=== PATIENT | female | born 1955 | race Caucasian/White ===

== ENCOUNTER 2018-07-19 16:44 | Inpatient (IN) ==
[2018-07-20] MEDS ORDERED: POLYETHYLENE (MIRALAX) 17 GM PACK PO PRN (00:03)
[2018-07-20] MEDS ORDERED: ACETAMINOPHEN 325 MG TAB PO PRN (00:03)
[2018-07-20] MEDS ORDERED: PATIENT'S ALLERGY INFO NEEDS ENTERED SCH (00:15)
[2018-07-20 00:36] LABS: Basophils # (auto) 0.03 K/uL (0-0.2); Basophils % (auto) 0.4 %; Eosinophils # (auto) 0.45 K/uL (0-0.5); Eosinophils % (auto) 6.4 %; Hematocrit (blood only) 32.3 % (37-47); Hemoglobin 10.5 g/dL (12.0-16.0); Immature Granulocytes # (auto) 0.06 K/uL (0.00-0.02); Immature Granulocytes % (auto) 0.9 %; Lymphocytes # (auto) 1.87 K/uL (1.2-3.4); Lymphocytes % (auto) 26.8 %; Mean Platelet Volume 9.3 fL (7.4-10.4); Monocytes # (auto) 0.51 K/uL (0.11-0.59); Monocytes % (auto) 7.3 %; Neutrophils # (auto) 4.06 K/uL (1.4-6.5); Neutrophils % (auto) 58.2 %; Platelet Count 190 K/uL (130-400); RDW Coefficient of Variation 13.7 % (11.5-14.5); RDW Standard Deviation 40.8 fL (36.4-46.3); Red Blood Count 3.99 M/uL (4.2-5.4); White Blood Count 6.98 K/uL (4.8-10.8)
[2018-07-20 00:45] LABS: Prothrombin Time 19.2 Seconds (9.0-12.0)
[2018-07-20 00:47] LABS: Mean Corpuscular Hgb Conc 32.5 g/dL (32-36)
[2018-07-20 00:53] LABS: Partial Thromboplastin Ratio 1.2; Partial Thromboplastin Time 31.3 Seconds (21.0-31.0)
[2018-07-20 00:55] LABS: Blood Urea Nitrogen 14 mg/dl (7-18); Calcium 8.3 mg/dl (8.5-10.1); Carbon Dioxide 26 mmol/L (21-32); Chloride 106 mmol/L (98-107); Est GFR (African American) 74.5; Est GFR (Non-African American) 64.3; Glucose 104 mg/dl (70-99); Magnesium 2.2 mg/dl (1.8-2.4); Potassium 3.8 mmol/L (3.5-5.1); Sodium 139 mmol/L (136-145)
[2018-07-20 01:00] LABS: Troponin I < 0.015 ng/ml (0-0.045)
--- NOTE | 2018-07-20 01:26 | History & Physical Report ---
Date of Service July 20, 2018 Assessment & Plan (1) Pseudoaneurysm following procedure: Thought to be a hematoma initially Ultrasound today question pseudoaneurysm Status post PCI with right groin approach on 07/07/[address] Magdi Adames for evaluation Bedrest for now N.p.o. overnight Continue to monitor (2) CAD in [place] artery: [place] x2 in 2009 and 2013 PCI to 2 of the [place] vessels in 2009 performed at [place] PCI at [facility] 07/07/2018 2 single-vessel History of AVR replacement with mechanical valve 2009 in [place] Patient anticoagulated with warfarin (INR 2.0) Patient continues on Brilinta twice daily Continue metoprolol, aspirin, and anti-hyper lipids. No chest pain or tightness at this time EKG with no ST changes Old right bundle branch block (3) Hypothyroidism (acquired): Continue Synthroid 75 mcg daily (4) Restless leg syndrome: Continue ropinirole 3 mg at bedtime (5) Hyperlipidemia: Continue antihyperlipidemia (6) Depression: Stable Continue sertraline (7) Tobacco abuse: Discussed need for complete abstention Patient states that she quit smoking on 07/07/2018 Greater than [id number] history (8) DVT prophylaxis: Patient anticoagulated chronically on warfarin INR 2.0 Continue Brilinta twice daily History of Present Illness Chief Complaint: Question of pseudoaneurysm of right groin Primary Care Provider: NO PCP This is a 62-year-old female with a past medical history that includes CAD, non-STEMI 2009, STEMI 2013, ascending aortic repair in [place] in 2009, aortic valve replacement with mechanical valve 2009 in [place], restless leg syndrome with calf pain, and tobacco abuse. Patient presented to [facility] 2 days ago on 07/18/2018 with chest pain and tightness. She recently had a PCI with single vessel stent 07/07/2018 at [facility] completed by staff from [place]. During the procedure they had complications with bleeding due to elevated INR. Ultrasound examination of the groin today indicated possible pseudoaneurysm and patient was transferred to [facility] for further evaluation and care. Patient states that that area is tender but not painful. She has no fever or chills. She has no chest pain or tightness at this time. She has no shortness of breath or hypoxia. She denies any dizziness, syncope, presyncope, abdominal pain, nausea vomiting or diarrhea. She has no other acute complaints at this time. Allergies Allergy/AdvReac Type Severity Reaction Status Date / Time Latex, Natural Rubber AdvReac Localized Unverified 07/20/18 00:56 skin reaction Sulfa (Sulfonamide AdvReac Nausea and Unverified 07/20/18 00:56 Antibiotics) vomiting Home Medications Home Medications Medication Instructions Recorded Confirmed Type Ambien 5 mg PO HS PRN 07/20/18 07/20/18 History aspirin 81 mg PO DAILY 07/20/18 07/20/18 History ezetimibe 10 mg DAILY 07/20/18 07/20/18 History fenofibrate micronized 67 mg DAILY 07/20/18 History levothyroxine [Synthroid] 75 mcg DAILY 07/20/18 07/20/18 History metoprolol tartrate 25 mg BID 07/20/18 History nitroglycerin See Rx Instructions .ROUTE 07/20/18 07/20/18 History .COMPLEX PRN ropinirole 3 mg HS 07/20/18 07/20/18 History sertraline 100 mg PO DAILY 07/20/18 07/20/18 History simvastatin 40 mg DAILY 07/20/18 07/20/18 History ticagrelor [Brilinta] 90 mg BID 07/20/18 07/20/18 History warfarin 3 mg 2XWK 07/20/18 07/20/18 History warfarin 6 mg 5XWK 07/20/18 07/20/18 History Past Med/Surg History Medical History Ascending aortic aneurysm CAD (coronary artery disease) Chronic anticoagulation Due to AVR Hyperlipemia Hypertension NSTEMI (non-ST elevated myocardial infarction) Restless leg syndrome Surgical History Aortic valve replaced 2009 Cholecystectomy planned History of arthroplasty of right knee History of cardiac catheterization 07/07/18 stent placed History of carpal tunnel repair History of partial hysterectomy History of tonsillectomy and adenoidectomy Hx of colonoscopy S/P excision of Gomes's neuroma Family History Brother CAD (coronary artery disease) Emphysema lung Mother CAD (coronary artery disease) Father CAD (coronary artery disease) Social History Communication Ability: Effective Beliefs That Will Affect Care: None marital status: marital status details: Sara White [phone] Current Living Situation: Spouse current occupational status: other 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 EYES: No icterus, gaze conjugate. PERRL NOSE: No evidence of epistaxis. MOUTH: No lesions or candidiasis. No dentures or bridges. No evidence of dental implants. No gingival bleeding. NECK: Supple. No appreciation of carotid bruits LUNGS: CTA B/L, no wheezes, rales or rhonchi HEART: Regular, rate controlled. Mechanical heart murmur secondary to AVR appreciated ABDOMEN: Soft, NT, ND, BS Present. No rebound tenderness or guarding to deep palpation EXTREMITIES: No LE edema, pedal pulses intact. NEURO: A&OX3. No neurological deficits on exam Results & Data Laboratory Results 07/20/18 07/20/18 07/20/18 00:16 00:16 00:16 WBC 6.98 RBC 3.99 L Hgb 10.5 L Hct 32.3 L MCV 81.0 MCH 26.3 MCHC 32.5 RDW Std Deviation 40.8 RDW Coeff of Pretty 13.7 Plt Count 190 MPV 9.3 Immature Gran % (Auto) 0.9 Neut % (Auto) 58.2 Lymph % (Auto) 26.8 [place] % (Auto) 7.3 Eos % (Auto) 6.4 Baso % (Auto) 0.4 Immature Gran # (Auto) 0.06 H Neut # (Auto) 4.06 Lymph # (Auto) 1.87 [place] # (Auto) 0.51 Eos # (Auto) 0.45 Baso # (Auto) 0.03 PT 19.2 H INR 2.0 H APTT PTT Ratio Sodium 139 Potassium 3.8 Chloride 106 Carbon Dioxide 26 Anion Gap 7.0 BUN 14 Creatinine 0.96 Est Cr Clr Drug Dosing Not Reportable Est GFR ( Amer) 74.5 Est GFR (Non-Af Amer) 64.3 BUN/Creatinine Ratio 15.0 Glucose 104 H Calcium 8.3 L Magnesium 2.2 Troponin I < 0.015 07/20/18 00:16 WBC RBC Hgb Hct MCV MCH MCHC RDW Std Deviation RDW Coeff of Pretty Plt Count MPV Immature Gran % (Auto) Neut % (Auto) Lymph % (Auto) [place] % (Auto) Eos % (Auto) Baso % (Auto) Immature Gran # (Auto) Neut # (Auto) Lymph # (Auto) [place] # (Auto) Eos # (Auto) Baso # (Auto) PT INR APTT 31.3 H PTT Ratio 1.2 Sodium Potassium Chloride Carbon Dioxide Anion Gap BUN Creatinine Est Cr Clr Drug Dosing Est GFR ( Amer) Est GFR (Non-Af Amer) BUN/Creatinine Ratio Glucose Calcium Magnesium Troponin I Diagnostic Findings All images from [facility] loaded into PACS system ECG Additional Comments: EKG 07/20/2018 Ventricular rate 64 bpm [place] interval 194 ms QRS duration 144 ms QT/QTc 490/505 ms PRT axis 48-18 44 Normal sinus rhythm Right bundle branch block appreciated (reported history and paperwork from [facility]) Code Status & VTE Plan Code Status Full resuscitation VTE Prophylaxis Plan VTE Prophylaxis will be ordered: Yes Critical Care Time Critical Care Time: No Supervising Physician Co-Signing Physician Notes Pt was seen/examined following evaluation by PREETI Ann. Orders and plan of admission were reviewed following initial evaluation by the HAND DRAWER IN. 62 y/o F Hx CAD - [place] x 2, PVD, AAA repair 2009, AVR 2009, RLS, HLD, hypothyroid, recent PCI and stent 07/07/18. Amazingly, she continues to smoke cigarettes. Following her PCI she developed pain in her R groin and was diagnosed with a pseudoaneurysm. She was transferred from [facility] to [facility] for vascular surgery eval therefore. OE AAO x 3 S1,2 R CTAB NT, ND No CCE No deficits Strong periph pulses BL P: Intervention/plan of treatment will be to the discretion of vascular surgery. If she does undergo intervention, she should be considered high risk due to CAD and a vascular procedure. She will need INR reversal with bridging due to her mechanical valve. She is will aware of the hazards of continued smoking especially considering her underlying poor vascular health. Cont Metoproolol, synthroid, ropinirole as prescribed
[2018-07-20] MEDS ORDERED: ZOLPIDEM TARTRATE 5 MG TAB PO PRN (01:35)
[2018-07-20] MEDS ORDERED: INFLUENZA VIRUS QUAD VACCINE 0.5 ML SYR IM ONE (06:30)
[2018-07-20] MEDS ORDERED: INFLUENZA ADMINISTRATION CHARGE ONE (06:30)
[2018-07-20] MEDS: LEVOTHYROXINE SODIUM 75 MCG TABLET PO SCH (06:40)
[2018-07-20] MEDS: EZETIMIBE 10 MG TABLET PO SCH (08:17)
[2018-07-20] MEDS: ASPIRIN 81 MG ECTAB PO SCH (08:17)
[2018-07-20] MEDS: SIMVASTATIN 40 MG TAB PO SCH (08:17)
[2018-07-20] MEDS: SERTRALINE HCL 100 MG TABLET PO SCH (08:17)
[2018-07-20] MEDS: TICAGRELOR 90 MG TAB PO SCH ×2 (08:17→19:51)
[2018-07-20] MEDS ORDERED: TRIAMCINOLONE ACET NASAL SPRAY 10.8ML BTL NAE SCH (10:15)
[2018-07-20] MEDS ORDERED: SODIUM CHLORIDE 0.65% NA SOLN 45 ML (OCEAN) ONE (11:14)
[2018-07-20] MEDS ORDERED: SODIUM CHLORIDE 0.65% NA SOLN 45 ML (OCEAN) PRN (12:00)
[2018-07-20] MEDS: OXYMETAZOLINE 0.05% 30 ML BTL PRN (12:22)
--- NOTE | 2018-07-20 14:40 | Hospitalist Progress Note ---
Date of Service July 20, 2018 Assessment & Plan (1) Pseudoaneurysm following procedure: This pt is a 62 yo female with a h/o CAD w/ recent PCI to the LAD at [facility], AVR with mechanical valve on coumadin with INR goal 2.0-3.0, h/o TAA repair, RLS, HL, HTN, hypothyroidism, and depression w/ anxiety, who presents from [facility] after being readmitted with chest pain and found to have a pseudoaneurysm at cath site in rt groin. Arterial US here confirms pseudoaneurysm. Has overlying hematoma as well. Is on ASA, Brilinta, and coumadin due to recent SP to LAD and mechanical AVR Status post PCI with right groin approach on 07/07/2018 D/w Cardiology-very hesitant to hold Brilinta for Vascular procedure-will continue ASA/Brilinta for now -Hold coumadin, follow INR -plan for Vascular procedure tomorrow to correct -can remain off coumadin for up to 1 week with mechanical AV -pain control as needed -continue bedrest with BRB -Appreciate Vascular Surgery management (2) CAD in [place] artery: [place] x2 in 2009 and 2013 PCI to 2 of the [place] vessels in 2009 performed at [place] PCI at [facility] 07/07/2018 to LAD all as per patient report Presented with several hours of chest pain at [facility] on 07/18 and had negative troponin, RBBB and no ischemia on ECG, negative CTA Chest.Likely noncardiac Trop here neg -continue ASA, Brilinta-too high risk to stop for procedure at this time given recent PCI -Continue metoprolol, aspirin, and statin, Zetia -follow closely for evidence of ischemia -Appreciate Cardiology recommendations (3) Depression: Stable Continue sertraline (4) Hyperlipidemia: -continue statin, Zetia (5) Restless leg syndrome: Continue ropinirole at bedtime (6) Hypothyroidism (acquired): Continue Synthroid 75 mcg daily -check TSH (7) History of aortic valve replacement: History of AVR replacement with mechanical valve and TAA repair in 2009 w/ Dr. Bedolla at [place] On Coumadin with goal 2.0-3.0--> INR has been labile lately since recent PCI and being off coumadin, restarting. INR was 4.2 on 07/18 when first presented to [facility]. INR now down to 1.6 -Will hold off on bridgin with heparin for now given upcoming surgery tomorrow and with hematoma in groin and pseudoaneurysm -would start bridging with heparin and restart coumadin when ok with Vascular Surgery after procedure -follow INR (8) longterm current use of anticoagulants with INR goal of 2.0-3.0: as above (9) Epistaxis: secondary to being on ASA/Brilinta, Coumadin -resolved with Afrin nasal spray (10) Tobacco abuse: Patient states that she quit smoking on 07/07/2018 Greater than [id number] history -encouraged continued cessation (11) DVT prophylaxis: Coumadin-but on hold Dispo-remain on tele Subjective Pt having pain in her right groin. Denies chest pain but did have CP on Wednesday which is what prompted her ER visit to [facility]. No lightheadedness, no SOB. Tele with NSR. Discussed case with Vascular SUrgery and Cardiology. She had epistaxis earlier which is now resolved with Afrin nasal spray. Review of Systems All systems reviewed & are unremarkable except as noted in HPI & below Physical Exam Vital Signs (Past 24 Hours): Last Vital Signs Temp 36.8 C 07/20/18 12:00 Pulse 64 07/20/18 12:00 Resp 15 07/20/18 12:00 BP 135/79 07/20/18 12:00 Pulse Ox 95 07/20/18 12:00 Constitutional: WD/WN, vitals as above Eyes: PERRL, conjunctivae normal, anicteric sclerae ENMT: external ear and nose normal, oropharynx normal Neck: trachea midline, no thyromegaly Respiratory: normal respiratory effort, lungs clear to auscultation Cardiovascular: RRR, no murmur, no edema Vessels: femoral pulses present (with right groin with approx 8 x 3 cm palpable firm mass) Gastrointestinal (Abdomen): normal bowel sounds, soft, nontender, no hepatosplenomegaly Musculoskeletal: Extremities: extremities normal to inspection; no cyanosis and no clubbing Skin: + ecchymosis (in right groin and thigh, left flank) Neurologic: moves all extremities and awake; no focal motor deficits Psychiatric: A+Ox3, euthymic affect Results & Data Laboratory Results 07/20/18 07/20/18 Range/Units 14:51 00:20 PT 16.0 H (9.0-12.0) Seconds INR 1.6 H (0.9-1.1) Blood Type AB Positive Antibody Screen NEGATIVE Crossmatch See Detail Na+ 139 K+ 3.8 HCO3 26 Blood Tester Fowl 0.96 INR 2.0--> 1.6 Troponin <0.015 WBC 6.9 Hgb 10.5 Plts 190 Diagnostic Findings US arterial duplex LE RT CLINICAL HISTORY: right femoral aneurysm COMPARISON STUDY: Outside study dated July 19, 2018 FINDINGS: There is triphasic flow within the right common femoral, superficial femoral, popliteal, posterior tibial, anterior tibial, and peroneal vessels. No high velocity jets are visualized. There is a 31 x 10 x 21 mm hypoechoic lesion which appears to communicate with the right common femoral artery. This is viewed as suspicious for a pseudoaneurysm. There is a mildly prominent 31 x 42 x 11 mm right groin node, likely reactive. IMPRESSION: 1. 31 x 21 x 10 mm pseudoaneurysm, arising from the right common femoral artery 2. No evidence of right lower extremity arterial stenosis (1) Depression Depression Type: major depressive disorder Major depression recurrence: unspecified whether recurrent Active/Remission status: remission status unspecified Qualified Code(s): F32.9 - Major depressive disorder, single episode, unspecified (2) Hyperlipidemia Hyperlipidemia type: unspecified Qualified Code(s): E78.5 - Hyperlipidemia, unspecified
[2018-07-20 15:11] LABS: INR 1.6 (0.9-1.1)
--- NOTE | 2018-07-20 15:24 | Consultation ---
Date of Consultation July 20, 2018 Assessment & Plan (1) Pseudoaneurysm of right femoral artery: Await USN study today. If nothing seen that needs emergent surgery, will plan on reparing this tomorrow afternoon. Thank you very much for letting us participate in the care of this patient. History of Present Illness Reason for Consultation: pseeudoaneurysm right femoral artery Requesting Physician: This is a 62-year-old female with a past medical history that includes CAD, non-STEMI 2009, STEMI 2013, ascending aortic repair in [place] in 2009, aortic valve replacement with mechanical valve 2009 in [place], restless leg syndrome with calf pain, and tobacco abuse. She underwent a heart cath on 07/07 for chest pain and tightness. She had 2 stents previously placed and now had another placed. She had problems post procedure with bleeding from the right groin. She claims they had to apply a lot of pressure and then a compression device until her leg was numb and turned blue. She went to the ED on 07/18 with chest tightness and pain. She was found to have a pseudoaneurysm of the right groin. She is on Brilinta which cardiology does not want stopped. She denies claudication or rest pain in her feet. She denies any numbness or weakness in her lower extremities. Attending Physician: Araseli Oglesby MD Allergies Allergy/AdvReac Type Severity Reaction Status Date / Time Latex, Natural Rubber AdvReac Localized Unverified 07/20/18 00:56 skin reaction Sulfa (Sulfonamide AdvReac Nausea and Unverified 07/20/18 00:56 Antibiotics) vomiting Home Medications Home Medications Medication Instructions Recorded Confirmed Type Ambien 5 mg PO HS PRN 07/20/18 07/20/18 History aspirin 81 mg PO DAILY 07/20/18 07/20/18 History ezetimibe 10 mg DAILY 07/20/18 07/20/18 History fenofibrate micronized 67 mg DAILY 07/20/18 History levothyroxine [Synthroid] 75 mcg DAILY 07/20/18 07/20/18 History metoprolol tartrate 25 mg BID 07/20/18 History nitroglycerin See Rx Instructions .ROUTE 07/20/18 07/20/18 History .COMPLEX PRN ropinirole 3 mg HS 07/20/18 07/20/18 History sertraline 100 mg PO DAILY 07/20/18 07/20/18 History simvastatin 40 mg DAILY 07/20/18 07/20/18 History ticagrelor [Brilinta] 90 mg BID 07/20/18 07/20/18 History warfarin 3 mg 2XWK 07/20/18 07/20/18 History warfarin 6 mg 5XWK 07/20/18 07/20/18 History Patient History Medical History Ascending aortic aneurysm CAD (coronary artery disease) Hyperlipemia Hypertension NSTEMI (non-ST elevated myocardial infarction) Restless leg syndrome Surgical History Aortic valve replaced Cholecystectomy planned History of arthroplasty of right knee History of cardiac catheterization History of carpal tunnel repair History of partial hysterectomy History of tonsillectomy and adenoidectomy Hx of colonoscopy S/P excision of Gomes's neuroma Family History Brother CAD (coronary artery disease) Emphysema lung Mother CAD (coronary artery disease) Father CAD (coronary artery disease) Social History Communication Ability: Effective Beliefs That Will Affect Care: None marital status: marital status details: Sara White [phone] Current Living Situation: Spouse current occupational status: other 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 Physical Exam Vital Signs (Past 24 Hours): Last Vital Signs Temp 36.8 C 07/20/18 12:00 Pulse 64 07/20/18 12:00 Resp 15 07/20/18 12:00 BP 135/79 07/20/18 12:00 Pulse Ox 95 07/20/18 12:00 Constitutional: well developed and well nourished; no acute distress Respiratory: normal respiratory effort, lungs clear to auscultation Cardiovascular: RRR, no murmur, no edema Vessels: femoral pulses present pulsatile mass in right groin. Gastrointestinal (Abdomen): normal bowel sounds, soft, nontender, no hepatosplenomegaly Skin: no rashes, warm and dry Neurologic: normal touch/pain/proprioception, CN's II-XI intact bilaterally, normal sensation to monofilament and moves all extremities; no focal motor deficits Motor/Sensory: no sensory deficit Psychiatric: Orientation: alert and oriented x 3
[2018-07-20] MEDS ORDERED: SODIUM CHLORIDE 0.9% 250 ML IV PRN (15:39)
[2018-07-20] MEDS ORDERED: WARFARIN SOD 3 MG TAB PO SCH (16:00)
--- NOTE | 2018-07-20 16:10 | Anesthesiology Consultation ---
Date of Service July 20, 2018 Assessment & Plan (1) Encounter for pre-operative examination: Chart Review Chart Review: Acceptable Risk for Surgery History Surgery Operation Date: 07/21/18 13:15 Proposed Procedures p Right Groin Repair of Pseudoaneurysm - Robert Alfaro MD Height/Weight Height: 4 ft 11.5 in Weight: 73.1 kg Allergies Allergy/AdvReac Type Severity Reaction Status Date / Time Latex, Natural Rubber AdvReac Localized Unverified 07/20/18 00:56 skin reaction Sulfa (Sulfonamide AdvReac Nausea and Unverified 07/20/18 00:56 Antibiotics) vomiting Medications Home Medications Medication Instructions Recorded Confirmed Last Taken Ambien 5 mg PO HS PRN 07/20/18 07/20/18 Unknown aspirin 81 mg PO DAILY 07/20/18 07/20/18 Unknown ezetimibe 10 mg DAILY 07/20/18 07/20/18 Unknown fenofibrate micronized 67 mg DAILY 07/20/18 Unknown levothyroxine [Synthroid] 75 mcg DAILY 07/20/18 07/20/18 Unknown metoprolol tartrate 25 mg BID 07/20/18 Unknown nitroglycerin See Rx Instructions .ROUTE 07/20/18 07/20/18 Unknown .COMPLEX PRN ropinirole 3 mg HS 07/20/18 07/20/18 Unknown sertraline 100 mg PO DAILY 07/20/18 07/20/18 Unknown simvastatin 40 mg DAILY 07/20/18 07/20/18 Unknown ticagrelor [Brilinta] 90 mg BID 07/20/18 07/20/18 Unknown warfarin 3 mg 2XWK 07/20/18 07/20/18 Unknown warfarin 6 mg 5XWK 07/20/18 07/20/18 Unknown Active Medications Generic Name Dose Route Start Last Admin Trade Name Freq PRN Reason Stop Dose Admin Aspirin 81 mg 07/20/18 09:00 07/20/18 08:17 Ecotrin Ectab PO 08/19/18 08:59 81 mg DAILY FEDERICO Administration Ezetimibe 10 mg 07/20/18 09:00 07/20/18 08:17 Zetia PO 08/19/18 08:59 10 mg DAILY FEDERICO Administration Levothyroxine Sodium 75 mcg 07/20/18 06:30 07/20/18 06:40 Synthroid PO 08/19/18 06:29 75 mcg DAILYBB FEDERICO Administration Oxymetazoline HCl 2 sprays 07/20/18 11:58 07/20/18 12:22 Afrin 0.05% NA 08/19/18 11:57 2 sprays DAILY PRN Administration EPISTAXIS Sertraline HCl 100 mg 07/20/18 09:00 07/20/18 08:17 Zoloft PO 08/19/18 08:59 100 mg DAILY FEDERICO Administration Simvastatin 40 mg 07/20/18 09:00 07/20/18 08:17 Zocor PO 08/19/18 08:59 40 mg DAILY FEDERICO Administration Ticagrelor 90 mg 07/20/18 09:00 07/20/18 08:17 Brilinta PO 08/19/18 08:59 90 mg BID FEDERICO Administration Triamcinolone Acetonide 2 sprays 07/20/18 10:15 07/20/18 12:32 Nasacort FRANSISCO 08/19/18 10:14 Not Given DAILY FEDERICO Past Medical History Medical History Ascending aortic aneurysm CAD (coronary artery disease) Chronic anticoagulation Due to AVR Hyperlipemia Hypertension NSTEMI (non-ST elevated myocardial infarction) Restless leg syndrome Past Family History Family History Brother CAD (coronary artery disease) Emphysema lung Mother CAD (coronary artery disease) Father CAD (coronary artery disease) Past Surgical History Surgical History Aortic valve replaced 2009 Cholecystectomy planned History of arthroplasty of right knee History of cardiac catheterization 07/07/18 stent placed History of carpal tunnel repair History of partial hysterectomy History of tonsillectomy and adenoidectomy Hx of colonoscopy S/P excision of Gomes's neuroma Social History Smoking Status: Former smoker tobacco type: cigarettes Do You Dip or Chew Tobacco: No Smoking End Date: 06/2018 Hx Alcohol Use: Yes Alcohol type: hard liquor alcohol intake frequency: holidays/special occasions only Hx Substance Use: No substance use type: does not use Physical Exam Vital Signs Last Vital Signs Temp 36.8 C 07/20/18 12:00 Pulse 64 07/20/18 12:00 Resp 15 07/20/18 12:00 BP 135/79 07/20/18 12:00 Pulse Ox 95 07/20/18 12:00 Testing Electrocardiogram Date: 07/20/18 Findings: + NSR @ (63) and + RBBB (not new) Laboratory Results 07/20/18 00:16 07/20/18 00:16 PT 16.0 Seconds (9.0-12.0) H 07/20/18 14:51 INR 1.6 (0.9-1.1) H 07/20/18 14:51 APTT 31.3 Seconds (21.0-31.0) H 07/20/18 00:16
--- NOTE | 2018-07-20 16:19 | Ultrasound Report ---
US arterial duplex LE RT CLINICAL HISTORY: right femoral aneurysm COMPARISON STUDY: Outside study dated July 19, 2018 FINDINGS: There is triphasic flow within the right common femoral, superficial femoral, popliteal, posterior ti bial, anterior tibial, and peroneal vessels. No high velocity jets are visualized. There is a 31 x 10 x 21 mm hypoechoic lesion which appears to communicate with the right common femor al artery. This is viewed as suspicious for a pseudoaneurysm. There is a mildly prominent 31 x 42 x 11 mm right groin node, likely reactive. IMPRESSION: 1. 31 x 21 x 10 mm pseudoaneurysm, arising from the right common femoral artery 2. No evidence of right lower extremity arterial stenosis Electronically signed by: Joel Bonds M.D. 07/20/2018 4:18 PM
--- NOTE | 2018-07-20 16:27 | Cardiology Consultation ---
Date of Consultation July 20, 2018 Assessment & Plan (1) Pseudoaneurysm following procedure: 2. Coronary artery disease post recent PCI to mid LAD almost 2 weeks ago 3. Chest pain 4. Mechanical AVR 2009 on chronic anti-coagulation 5. Hypertension 6. Dyslipidemia Reviewed results of repeat arterial duplex. Patient with uncomplicated 3 cm pseudoaneurysm. Patient has been seen by Dr. Alfaro with vascular surgery. Management complicated by need for dual antiplatelet therapy and chronic anticoagulation. In the setting of LAD stenting 2 weeks ago patient has elevated risk for subacute stent thrombosis and would avoid discontinuation of Brilinta or clopidogrel for at least one month unless life-threatening bleeding. With mechanical aortic valve Coumadin could be held without bridging as needed for any intervention. Long-term would consider transition from Brilinta to clopidogrel with need for long-term anticoagulation. Can discontinue aspirin at 1 month and continue on clopidogrel/Coumadin alone for 6 months. In regards to recent chest pain suspicion for stent thrombosis/repeat coronary event is very low. Will forego additional cardiac testing at this time. We will continue to follow. Thank you for allowing us to participate in the care of this patient. Please contact with any questions. History of Present Illness Attending Physician: Araseli Oglesby MD History of Present Illness Ms. Barton is a very pleasant 62-year-old woman with a history of mechanical aortic valve replacement and ascending aortic aneurysm repair in 2009 in the setting of bicuspid aortic valve, coronary artery disease with prior CO and stenting to circumflex, hypothyroidism, dyslipidemia who was transferred from [facility] in the setting of iatrogenic right common femoral artery pseudoaneurysm following recent PCI. Patient was previously admitted to [facility] in the setting of dizziness for which he underwent evaluation with stress test which was reportedly positive and prompted a cardiac catheterization on 07/07/2018. Coronary angiograms personally reviewed. RCA is largely disease-free, circumflex stent widely patent. Mid LAD with focal moderate to severe stenosis treated with a single drug-eluting stent with good angiographic result. Post procedure on DA PT with ASA/Brilinta. Prolonged hospitalization post PCI to reach therapeutic INR. Course complicated by extensive ecchymosis, hematoma. Readmitted 07/18/2018 in the setting of chest pressure lasting for several hours occurring while at rest. Pain different than prior CO symptoms which were primary limited to neck/jaw. Troponin negative. EKG showed chronic right bundle branch block. The setting of persistent right groin access site pain, swelling ultrasound sh owed pseudoaneurysm and surrounding hematoma which was transferred to [facility]. Allergies Allergy/AdvReac Type Severity Reaction Status Date / Time Latex, Natural Rubber AdvReac Localized Unverified 07/20/18 00:56 skin reaction Sulfa (Sulfonamide AdvReac Nausea and Unverified 07/20/18 00:56 Antibiotics) vomiting Home Medications Home Medications Medication Instructions Recorded Confirmed Type Ambien 5 mg PO HS PRN 07/20/18 07/20/18 History aspirin 81 mg PO DAILY 07/20/18 07/20/18 History ezetimibe 10 mg DAILY 07/20/18 07/20/18 History fenofibrate micronized 67 mg DAILY 07/20/18 History levothyroxine [Synthroid] 75 mcg DAILY 07/20/18 07/20/18 History metoprolol tartrate 25 mg BID 07/20/18 History nitroglycerin See Rx Instructions .ROUTE 07/20/18 07/20/18 History .COMPLEX PRN ropinirole 3 mg HS 07/20/18 07/20/18 History sertraline 100 mg PO DAILY 07/20/18 07/20/18 History simvastatin 40 mg DAILY 07/20/18 07/20/18 History ticagrelor [Brilinta] 90 mg BID 07/20/18 07/20/18 History warfarin 3 mg 2XWK 07/20/18 07/20/18 History warfarin 6 mg 5XWK 07/20/18 07/20/18 History Patient History Medical History Ascending aortic aneurysm CAD (coronary artery disease) Chronic anticoagulation Due to AVR Hyperlipemia Hypertension NSTEMI (non-ST elevated myocardial infarction) Restless leg syndrome Surgical History Aortic valve replaced 2009 Cholecystectomy planned History of arthroplasty of right knee History of cardiac catheterization 07/07/18 stent placed History of carpal tunnel repair History of partial hysterectomy History of tonsillectomy and adenoidectomy Hx of colonoscopy S/P excision of Gomes's neuroma Family History Brother CAD (coronary artery disease) Emphysema lung Mother CAD (coronary artery disease) Father CAD (coronary artery disease) Social History Communication Ability: Effective Beliefs That Will Affect Care: None marital status: marital status details: Sara Wihte [phone] Current Living Situation: Spouse current occupational status: other 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 - [employer] Other Information That Helps Us Care for You: No Feels Safe at Home: Yes Safety Concerns: Feels Safe At This Time Smoking Status: Former smoker Hx Alcohol Use: Yes Hx Substance Use: No Review of Systems 10 point review of systems was completed and was otherwise negative unless stated in HPI Physical Exam Vital Signs (Past 24 Hours): Last Vital Signs Temp 36.8 C 07/20/18 12:00 Pulse 64 07/20/18 12:00 Resp 15 07/20/18 12:00 BP 135/79 07/20/18 12:00 Pulse Ox 95 07/20/18 12:00 Physical Exam: General: Comfortable, no acute distress Eyes: Sclerae anicteric, extraocular movements intact HENT: Oropharynx clear mucous membranes moist Neck: Normal carotid upstrokes, no bruits. No JVD. Lungs: Clear to auscultation bilaterally, no rhonchi or wheezes Cardiac: Regular rate and rhythm, crisp mechanical closure Vascular: 2+ radial. 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 Intact DP/PT pulses Abdomen: Soft, nontender, nondistended, positive bowel sounds. Extremities: Well perfused, no peripheral edema Skin: No rashes or lesions. Neuro: Nonfocal Psych: Alert orient x3, normal affect and mood
[2018-07-20] MEDS: ROPINIROLE HCL 1 MG TABLET PO SCH (19:51)
[2018-07-21] MEDS: LEVOTHYROXINE SODIUM 75 MCG TABLET PO SCH (05:43)
[2018-07-21 05:48] LABS: Basophils # (auto) 0.03 K/uL (0-0.2); Basophils % (auto) 0.4 %; Eosinophils # (auto) 0.41 K/uL (0-0.5); Hematocrit (blood only) 34.5 % (37-47); Hemoglobin 11.2 g/dL (12.0-16.0); Immature Granulocytes # (auto) 0.03 K/uL (0.00-0.02); Immature Granulocytes % (auto) 0.4 %; Lymphocytes # (auto) 1.73 K/uL (1.2-3.4); Lymphocytes % (auto) 25.4 %; Mean Corpuscular Hgb Conc 32.5 g/dL (32-36); Mean Corpuscular Volume 81.6 fL (80-100); Mean Platelet Volume 9.6 fL (7.4-10.4); Monocytes # (auto) 0.41 K/uL (0.11-0.59); Neutrophils # (auto) 4.21 K/uL (1.4-6.5); Neutrophils % (auto) 61.8 %; Platelet Count 204 K/uL (130-400); RDW Coefficient of Variation 13.8 % (11.5-14.5); RDW Standard Deviation 41.2 fL (36.4-46.3); Red Blood Count 4.23 M/uL (4.2-5.4); White Blood Count 6.82 K/uL (4.8-10.8)
[2018-07-21 05:59] LABS: INR 1.3 (0.9-1.1); Prothrombin Time 13.5 Seconds (9.0-12.0)
[2018-07-21] MEDS ORDERED: CEFAZOLIN 1000MG 1,000 MG/7.5 ML SYR IV SCH (06:00)
[2018-07-21 06:36] LABS: BUN Creatinine Ratio 19.7 (10-20); Calcium 8.5 mg/dl (8.5-10.1); Creatinine Clr Calc Pharmacy 55.1 ml/min; Est GFR (African American) 76.4; Est GFR (Non-African American) 65.9; Magnesium 2.5 mg/dl (1.8-2.4); Potassium 4.1 mmol/L (3.5-5.1)
[2018-07-21] MEDS: METOPROLOL TARTRATE 25 MG TAB PO SCH ×2 (08:22→20:45)
[2018-07-21] MEDS: TICAGRELOR 90 MG TAB PO SCH ×2 (08:22→21:26)
[2018-07-21] MEDS: ASPIRIN 81 MG ECTAB PO SCH (08:22)
[2018-07-21] MEDS: EZETIMIBE 10 MG TABLET PO SCH (08:23)
[2018-07-21] MEDS: SERTRALINE HCL 100 MG TABLET PO SCH (08:23)
[2018-07-21] MEDS: SIMVASTATIN 40 MG TAB PO SCH (08:23)
[2018-07-21] MEDS ORDERED: NEOSTIGMINE METHYLSULFATE 5 MG/5 ML SYR ONE (12:31)
[2018-07-21] MEDS ORDERED: PROPOFOL IV EMULSION 10 MG/ML 20 ML VIAL IV ONE (12:31)
[2018-07-21] MEDS ORDERED: ONDANSETRON INJ 2 MG/ML 2 ML VIAL ONE ×2 (12:31→14:45)
[2018-07-21] MEDS ORDERED: LIDOCAINE HCL 2% 2 ML VIAL/AMP(20MG/ML) INFIL ONE (12:31)
[2018-07-21] MEDS ORDERED: GLYCOPYRROLATE 0.2 MG/ML VIAL ONE ×2 (12:31→14:32)
[2018-07-21] MEDS ORDERED: MIDAZOLAM HCL 1 MG/ML 2ML VIAL ONE (12:31)
[2018-07-21] MEDS ORDERED: fentaNYL citrate 100 MCG/2 ML VIAL ONE (12:31)
[2018-07-21] MEDS ORDERED: DEXAMETHASONE SOD INJ 4 MG/ML VIAL ONE (12:31)
[2018-07-21] MEDS ORDERED: HYDROmorphone INJ 2 MG/ML SYR/VIAL ONE (12:32)
[2018-07-21] MEDS ORDERED: LARYING-O-JET KIT (LTA) ONE (12:32)
[2018-07-21] MEDS ORDERED: SODIUM CHLORIDE 0.9% INJ 10 ML VIAL ONE (12:32)
[2018-07-21] MEDS ORDERED: ONDANSETRON INJ 2 MG/ML 2 ML VIAL IV PRN (12:35)
[2018-07-21] MEDS ORDERED: PROMETHAZINE HCL 12.5 MG in SODIUM CHLORIDE 0.9% 50 ML IV PRN (12:35)
[2018-07-21] MEDS ORDERED: HYDROmorphone INJ 1 MG/ML SYRINGE IV PRN (12:35)
[2018-07-21] MEDS ORDERED: ePHEDrine sulfate 50 MG/ML AMP IV PRN (12:35)
[2018-07-21] MEDS ORDERED: fentaNYL citrate 100 MCG/2 ML VIAL IV PRN (12:35)
[2018-07-21] MEDS ORDERED: ATROPINE SULFATE 0.1 MG/ML 10ML SYR IV PRN (12:35)
[2018-07-21] MEDS ORDERED: PHENYLEPHRINE 100MCG/ML 5ML SYR IV PRN (12:35)
[2018-07-21] MEDS ORDERED: HEPARIN (PORCINE) 1000 UNIT/ML 10 ML (CATH LAB USE ONLY) ONE (12:47)
[2018-07-21] MEDS ORDERED: LIDOCAINE HCL 1% 20 ML VIAL ONE (12:47)
[2018-07-21] MEDS ORDERED: PAPAVERINE HCL INJ 30 MG/ML 2 ML VIAL ONE (12:47)
[2018-07-21] MEDS ORDERED: IODIXANOL (VISIPAQUE) 270 MG/ML 150ML ONE (12:47)
[2018-07-21] MEDS ORDERED: BUPIVACAINE/EPINEPHRINE 0.5% MPF 1:200,000 30 ML VIAL ONE (12:48)
[2018-07-21] MEDS ORDERED: CEFAZOLIN 250 MG/ML 1 GM VIAL ONE (12:48)
[2018-07-21] MEDS ORDERED: GELATIN SPONGE SZ 100 ONE (12:48)
[2018-07-21] MEDS ORDERED: THROMBIN 5000 UNITS KIT ONE (12:48)
--- NOTE | 2018-07-21 12:48 | History & Physical Bridge Note ---
Date of Service July 21, 2018 History & Physical Bridge Note Patient for repair of right femoral pseudoaneurysm. I have discussed the risks options and benefits of the procedure with the patient. The patient understands the risks options and benefits and agrees to the procedure. I have examined the patient, reviewed the History & Physical and in the interval since the performance of the History & Physical I have noted the following changes of clinical significance: no changes noted
[2018-07-21] MEDS ORDERED: ALBUMIN HUMAN 5% 12.5 GM/250 ML VIAL IV ONE (14:03)
--- NOTE | 2018-07-21 14:30 | Post Operative Brief Note ---
Immediate Post Op Note v1 Date of Surgery July 21, 2018 Pre & Post Diagnosis Operation Date: 07/21/18 13:15 Pre-Op Diagnosis: RIGHT FEMORAL ARTERY PSEUDOANEURYSM Post-Op Diagnosis: RIGHT FEMORAL ARTERY PSEUDOANEURYSM Procedure Operation Date: 07/21/18 13:15 Actual Procedures p Right Groin Repair of Pseudoaneurysm(Right) - Robert Alfaro MD Surgeon Robert Alfaro MD Goldsmith Apprentice Lobito Bee MD Estimated Blood Loss 250 Findings Consistent with Post-Op Diagnosis Drains Dasilva Catheter Anesthesia Type General Complications none Disposition Accompanied Patient To Recovery: No Disposition: Recovery Room
[2018-07-21] MEDS ORDERED: ROCURONIUM BROMIDE 10 MG/ML 5 ML VIAL ONE (14:33)
[2018-07-21] MEDS ORDERED: ePHEDrine sulfate 50 MG/ML SYR ONE (14:35)
--- NOTE | 2018-07-21 15:02 | Operative Report ---
Post Operative Report Pre & Post Diagnosis Operation Date: 07/21/18 13:15 Pre-Op Diagnosis: RIGHT PSEUDOANEURYSM Post-Op Diagnosis: RIGHT PSEUDOANEURYSM Procedure Operation Date: 07/21/18 13:15 Actual Procedures p Right Groin Repair of Pseudoaneurysm(Right) - Robert Alfaro MD Surgeon Dr. Angelina Bee MD Configuration Analyst Lobito Bee MD Estimated Blood Loss 250 Findings Consistent with Post-Op Diagnosis Patient had 4 defects in the artery one in the SFA and 3 in the common femoral artery Specimens None Anesthesia Type General Complications none Disposition Accompanied Patient To Recovery: Yes Disposition: Recovery Room Indications Right groin pseudoaneurysm Description of Procedure The patient was brought to the operating room and placed on the operating table in the supine position. The right groin was clipped prepped and draped in the sterile standard fashion. The patient was identified and a timeout performed. A Dasilva catheter was also inserted. General anesthesia was then accomplished. Using a 10 blade a 10 cm vertical incision was made over the right groin over top of the hematoma. Using electrocautery hemostasis was achieved and the wound was deepened. We plantars were used to expose the wound and allow us to deepen the incision a good amount of clot was evacuated from the groin and the common femoral artery was then exposed as well as the SFA and profunda. Several areas of bleeding were noted and suction was used to maintain exposure. The right common femoral artery was then dissected and using a DeBakey clamp it was cl amped. Attention was then turned to the SFA where it was dissected free and clamped with a DeBakey clamp as well. The profunda clamp was then used to control the bleeding and backbleeding from the profunda after the profunda was dissected free. 3 defects were noted in the common femoral artery were repaired using 6-0 Prolene sutures and one defect was noted in the anterior surface of the SFA that was also repaired with a 6-0 Prolene suture. The rest of the artery was then explored and inspected no further bleeding was noted. The wound was then thoroughly irrigated with antibiotic (Ancef) irrigation. Thrombin spray was then applied around the artery as well as the wound. Electrocautery was also used to achieve hemostasis of the skin edges rest of the wound. Once we were satisfied with the hemostasis and the wound 2-0 Vicryl suture was used to approximate the deep tissues and a multilayer layer closure of the groin was achieved using 2-0 Vicryl as well as 3-0 Vicryl suture for approximation of the skin edges. 24 cc of 1% lidocaine plain and half percent Marcaine with epi was injected prior to completion of the wound closure. The wound was then finally closed with angy. A sterile dressing was then applied over top of that. Foot and distal pulses were inspected and they were palpable. The patient tolerated the procedure well and was taken back to the recovery room in a flat position. Dr. Alfaro was present and scrubbed for the entirety of the procedure. I attest to the content of the Intraoperative Record and any orders documented therein. Any exceptions are noted below.
--- NOTE | 2018-07-21 15:48 | Anesthesiology Progress Note ---
Date of Service July 21, 2018 Anesthesia Post Procedure Vital Signs Vital Signs: Temp Pulse Pulse Pulse Resp BP BP 07/21/18 15:35 77 16 141/72 H 07/21/18 15:25 74 16 148/72 H 07/21/18 15:15 72 16 127/94 07/21/18 15:07 36.3 C L 75 16 150/88 H 07/21/18 13:01 36.5 C 63 18 134/75 07/21/18 11:39 36.6 C 63 19 113/68 07/21/18 08:20 65 07/21/18 06:34 36.6 C 66 16 119/72 07/21/18 06:20 63 07/21/18 03:57 36.3 C L 65 17 137/78 07/20/18 23:40 36.4 C L 69 17 134/74 07/20/18 19:04 36.7 C 71 16 92/51 L Pulse Ox 07/21/18 15:35 98 07/21/18 15:25 100 07/21/18 15:15 100 07/21/18 15:07 100 07/21/18 13:01 99 07/21/18 11:39 95 07/21/18 08:20 07/21/18 06:34 96 07/21/18 06:20 07/21/18 03:57 96 07/20/18 23:40 97 07/20/18 19:04 96 Notes Mental Status: alert / awake / arousable Patient Amnestic to Procedure: Yes Nausea / Vomiting: adequately controlled Pain: adequately controlled Airway Patency, RR, SpO2: stable & adequate BP & HR: stable & adequate Hydration State: stable & adequate Anesthetic Complications: no major complications apparent Notes: Doing well, no complaints. VSS
[2018-07-21] MEDS ORDERED: WARFARIN SOD 6 MG TAB PO SCH (16:00)
[2018-07-21] MEDS ORDERED: HYDROmorphone INJ 0.5 MG/0.5 ML SYR IV PRN (16:41)
[2018-07-21] MEDS ORDERED: COUGH DROP (SUGAR FREE) LOZ 24 LOZ/1 BOX BUCCAL PRN (16:43)
[2018-07-21] MEDS: WARFARIN SOD 6 MG TAB PO SCH (17:24)
[2018-07-21] MEDS: HYDROmorphone INJ 0.5 MG/0.5 ML SYR IV PRN ×3 (18:37→23:52)
--- NOTE | 2018-07-21 19:25 | Hospitalist Progress Note ---
Date of Service July 21, 2018 Assessment & Plan (1) Pseudoaneurysm following procedure: right groin, s/p cardiac catheterization at outside hospital on 07/07/18. Dr. Alfaro took the patient to the OR today for pseudoaneurysm repair; 4 defects were found. Defer management to vascular team. They have resumed her coumadin; anticipate 48 hours before any rise in INR. Present on Admission?: Yes (2) History of aortic valve replacement: INR goal 2-3. coumadin was on hold in preparation for pseudoaneurysm repair today. INR this am 1.3; repeat INR every AM while here. coumadin resumed by vascular team post-op. pt asks about a home INR machine post-discharge; will check with coumadin clinic on how to secure such. she is followed by her PCP for the coumadin in [place]. (3) Hypothyroidism (acquired): TSH normal. Cont synthroid as is. (4) CAD in bill moore[place] artery: s/p PCI to LAD at [facility] on 07/07/18. Continuing aspirin/brilinta in the face of her pseudoaneurysm repair today. Too high risk to come off of antiplatelet therapy given how soon the LAD stent was placed. Cont BB. Cont statin therapy. (5) Tobacco abuse: quit smoking earlier this month will encourage to remain smoke-free offer nicoderm, if desired (6) Depression: cont outpatient meds (7) Hyperlipidemia: statin (8) Restless leg syndrome: cont requip check iron studies in am (9) DVT prophylaxis: coumadin PT, OT when ok w/ vascular surgery Subjective saw the patient post-op from her pseudoaneurysm repair. she c/o right groin pain. she was awake but sleepy; easily following commands however. asked for pain meds during the visit. tele stable overnight. also c/o sore throat from general anesthesia/intubation NO chest pain NO dyspnea Respiratory: no cough Cardiovascular: no orthopnea and no paroxysmal nocturnal dyspnea Gastrointestinal: no abdominal pain and no nausea Physical Exam Vital Signs (Past 24 Hours): Last Vital Signs Temp 36.4 C L 07/21/18 18:42 Pulse 84 07/21/18 18:42 Resp 16 07/21/18 18:42 BP 121/74 07/21/18 18:42 Pulse Ox 98 07/21/18 18:42 Constitutional: no acute distress sleepy but able to follow commands; c/o pain in right groin ENMT: Mouth: + oral mucosal abnormality (MM dry ) Respiratory: normal respiratory effort, lungs clear to auscultation Auscultation: + diminished lung sounds (bases) Cardiovascular: Rate/Rhythm: regular rate and regular rhythm Heart Sounds: normal S1 and normal S2 (mech valve closure sound); no gallop and no murmur Vessels: posterior tibial pulses present and dorsalis pedis pulses present; no J VD Extremities: no edema Gastrointestinal (Abdomen): normal bowel sounds, soft, nontender, no hepatosplenomegaly Skin: large dressing present over right groin Psychiatric: A+Ox3, euthymic affect Results & Data Laboratory Results Laboratory Results - last 24 hr 07/20/18 07/21/18 07/21/18 00:20 05:19 05:19 WBC 6.82 RBC 4.23 Hgb 11.2 L Hct 34.5 L MCV 81.6 MCH 26.5 MCHC 32.5 RDW Std Deviation 41.2 RDW Coeff of Pretty 13.8 Plt Count 204 MPV 9.6 Immature Gran % (Auto) 0.4 Neut % (Auto) 61.8 Lymph % (Auto) 25.4 [place] % (Auto) 6.0 Eos % (Auto) 6.0 Baso % (Auto) 0.4 Immature Gran # (Auto) 0.03 H Neut # (Auto) 4.21 Lymph # (Auto) 1.73 [place] # (Auto) 0.41 Eos # (Auto) 0.41 Baso # (Auto) 0.03 PT INR Sodium 139 Potassium 4.1 Chloride 106 Carbon Dioxide 27 Anion Gap 6.0 BUN 18 Creatinine 0.94 Est Cr Clr Drug Dosing 55.1 Est GFR ( Amer) 76.4 Est GFR (Non-Af Amer) 65.9 BUN/Creatinine Ratio 19.7 Glucose 102 H Calcium 8.5 Magnesium 2.5 H TSH 3.260 Blood Type AB Positive Antibody Screen NEGATIVE Crossmatch See Detail 07/21/18 05:19 WBC RBC Hgb Hct MCV MCH MCHC RDW Std Deviation RDW Coeff of Pretty Plt Count MPV Immature Gran % (Auto) Neut % (Auto) Lymph % (Auto) [place] % (Auto) Eos % (Auto) Baso % (Auto) Immature Gran # (Auto) Neut # (Auto) Lymph # (Auto) [place] # (Auto) Eos # (Auto) Baso # (Auto) PT 13.5 H INR 1.3 H Sodium Potassium Chloride Carbon Dioxide Anion Gap BUN Creatinine Est Cr Clr Drug Dosing Est GFR ( Amer) Est GFR (Non-Af Amer) BUN/Creatinine Ratio Glucose Calcium Magnesium TSH Blood Type Antibody Screen Crossmatch (1) Depression Depression Type: major depressive disorder Major depression recurrence: unspecified whether recurrent Active/Remission status: remission status unspecified Qualified Code(s): F32.9 - Major depressive disorder, single episode, unspecified (2) Hyperlipidemia Hyperlipidemia type: unspecified Qualified Code(s): E78.5 - Hyperlipidemia, unspecified
[2018-07-21] MEDS: ROPINIROLE HCL 1 MG TABLET PO SCH (20:45)
[2018-07-22] MEDS: HYDROmorphone INJ 0.5 MG/0.5 ML SYR IV PRN ×5 (04:13→18:26)
[2018-07-22] MEDS: LEVOTHYROXINE SODIUM 75 MCG TABLET PO SCH (05:50)
[2018-07-22 07:05] LABS: Eosinophils # (auto) 0.01 K/uL (0-0.5); Eosinophils % (auto) 0.1 %; Hematocrit (blood only) 31.4 % (37-47); Hemoglobin 9.9 g/dL (12.0-16.0); Immature Granulocytes # (auto) 0.03 K/uL (0.00-0.02); Immature Granulocytes % (auto) 0.2 %; Lymphocytes # (auto) 0.79 K/uL (1.2-3.4); Lymphocytes % (auto) 5.4 %; Mean Corpuscular Hgb Conc 31.5 g/dL (32-36); Mean Platelet Volume 9.7 fL (7.4-10.4); Monocytes # (auto) 0.56 K/uL (0.11-0.59); Monocytes % (auto) 3.9 %; Neutrophils # (auto) 13.15 K/uL (1.4-6.5); Neutrophils % (auto) 90.4 %; Platelet Count 208 K/uL (130-400); RDW Coefficient of Variation 13.9 % (11.5-14.5); RDW Standard Deviation 41.9 fL (36.4-46.3); Red Blood Count 3.83 M/uL (4.2-5.4); White Blood Count 14.54 K/uL (4.8-10.8)
[2018-07-22 07:14] LABS: INR 1.3 (0.9-1.1); Prothrombin Time 12.9 Seconds (9.0-12.0)
[2018-07-22 07:30] LABS: Est GFR (African American) 61.2; Potassium 4.4 mmol/L (3.5-5.1)
[2018-07-22 07:31] LABS: BUN Creatinine Ratio 16.4 (10-20); Calcium 8.8 mg/dl (8.5-10.1); Creatinine Clr Calc Pharmacy 45.8 ml/min; Est GFR (Non-African American) 52.8
[2018-07-22] MEDS: ASPIRIN 81 MG ECTAB PO SCH (07:32)
[2018-07-22] MEDS: EZETIMIBE 10 MG TABLET PO SCH (07:32)
[2018-07-22] MEDS: SERTRALINE HCL 100 MG TABLET PO SCH (07:32)
[2018-07-22] MEDS: SIMVASTATIN 40 MG TAB PO SCH (07:32)
[2018-07-22] MEDS: METOPROLOL TARTRATE 25 MG TAB PO SCH ×2 (07:32→20:53)
[2018-07-22] MEDS: TICAGRELOR 90 MG TAB PO SCH ×2 (07:32→20:53)
[2018-07-22 07:35] LABS: Ferritin 188.2 ng/ml (8-388)
--- NOTE | 2018-07-22 08:31 | Anesthesiology Progress Note ---
Date of Service July 22, 2018 Anesthesia Post Procedure Vital Signs Vital Signs: Temp Pulse Pulse Pulse Resp BP BP 07/22/18 02:35 36.7 C 77 12 108/63 07/22/18 00:07 36.6 C 78 18 96/58 L 07/21/18 23:20 90 07/21/18 18:42 36.4 C L 84 16 121/74 07/21/18 18:00 36.5 C 84 16 129/75 07/21/18 17:31 78 16 122/76 07/21/18 17:30 85 16 122/76 07/21/18 16:30 36.4 C L 77 16 132/80 07/21/18 16:25 36.5 C 77 16 131/78 07/21/18 16:15 36.5 C 76 16 137/81 07/21/18 16:00 36.5 C 76 76 16 131/78 07/21/18 15:45 36.6 C 77 16 146/76 H 07/21/18 15:35 77 16 141/72 H 07/21/18 15:25 74 16 148/72 H 07/21/18 15:15 72 16 127/94 07/21/18 15:07 36.3 C L 75 16 150/88 H 07/21/18 13:01 36.5 C 63 18 134/75 07/21/18 11:39 36.6 C 63 19 113/68 Pulse Ox 07/22/18 02:35 95 07/22/18 00:07 96 07/21/18 23:20 07/21/18 18:42 98 07/21/18 18:00 98 07/21/18 17:31 98 07/21/18 17:30 98 07/21/18 16:30 98 07/21/18 16:25 98 07/21/18 16:15 98 07/21/18 16:00 98 07/21/18 15:45 98 07/21/18 15:35 98 07/21/18 15:25 100 07/21/18 15:15 100 07/21/18 15:07 100 07/21/18 13:01 99 07/21/18 11:39 95 Pain Intensity Right Groin: Pain Intensity: 8 Notes Mental Status: alert / awake / arousable Patient Amnestic to Procedure: Yes Nausea / Vomiting: adequately controlled Pain: adequately controlled Airway Patency, RR, SpO2: stable & adequate BP & HR: stable & adequate Hydration State: stable & adequate Anesthetic Complications: no major complications apparent and Pt Satisfied with anesthetic care
--- NOTE | 2018-07-22 09:38 | Surgery Progress Note ---
Date of Service July 22, 2018 Assessment & Plan (1) Pseudoaneurysm of right femoral artery: Pt now s/p R groin pseudoaneurysm repair. Doing well post op. Place dry dressing to area until dry, then leave open to air. No lifting more than 10-15 lbs for 2 weeks. No driving x 1 week. Will see in office in 2 weeks for staple removal. Present on Admission?: Yes Subjective 62 yo f POD #1 after open repair of R femoral artery pseudoaneurysm, seen in f/u today. Pt admits pain in R groin incision. Denies any complaints of pain, or numbness of foot or toes. States pain well controlled with medications. Physical Exam Vital Signs (Past 24 Hours): Last Vital Signs Temp 36.7 C 07/22/18 02:35 Pulse 77 07/22/18 02:35 Resp 12 07/22/18 02:35 BP 108/63 07/22/18 02:35 Pulse Ox 95 07/22/18 02:35 Constitutional: well developed and well nourished; no acute distress Respiratory: normal respiratory effort, lungs clear to auscultation Cardiovascular: RRR, no murmur, no edema Rate/Rhythm: regular rate Vessels: normal peripheral pulses and femoral pulses present (R groin incision intact with angy. + loacl edema, ecchymosis,) Also R groin tenderness, minimal bleedin from site. Gastrointestinal (Abdomen): normal bowel sounds, soft, nontender, no hepatosplenomegaly Skin: no rashes, warm and dry Neurologic: normal touch/pain/proprioception, CN's II-XI intact bilaterally, normal sensation to monofilament and moves all extremities; no focal motor deficits Motor/Sensory: no sensory deficit Psychiatric: Orientation: alert and oriented x 3
[2018-07-22] MEDS: OXYCODONE HCL IR 5 MG TAB (IMMEDIATE RELEASE) PO PRN ×4 (11:03→23:48)
--- NOTE | 2018-07-22 13:21 | XRay Report ---
XR chest 2V routine CLINICAL HISTORY: post-op wheeze; edema?? Dyspnea COMPARISON STUDY: 07/18/2018 FINDINGS: The bones soft tissues and hemidiaphragms are normal. The cardiomediastinal silhouette is n ormal. The lungs are clear. The pulmonary vasculature is normal. Prior median sternotomy and valve replacement IMPRESSION: No acute process. The above report was generated using voice recognition software. It may contain grammatical, syntax or spelling errors. Electronically signed by: Jamie Thomas M.D. 07/22/2018 1:20 PM
--- NOTE | 2018-07-22 14:37 | Cardiology Progress Note ---
Date of Service July 22, 2018 Assessment & Plan (1) Pseudoaneurysm following procedure: 2. Coronary artery disease post recent PCI to mid LAD almost 2 weeks ago 3. Chest pain 4. Mechanical AVR 2009 on chronic anti-coagulation 5. Hypertension 6. Dyslipidemia 7. Postop anemia Patient stable following open pseudoaneurysm repair yesterday. In the perioperative setting remained chest pain-free. Hemodynamically and electrically stable. Right lower extremity well-perfused. Going forward: �Continue dual antiplatelet therapy with aspirin, ticagrelor �Continue anticoagulation with Coumadin, INR 1.3. Does not need bridging. �No change to prior beta-maggi, statin, Zetia From a cardiac standpoint okay for discharge to home when surgical issues resolved. Follow-up with me in 2 weeks. Wishes to transfer Coumadin management to our office. Follow-up INR on Wednesday. Subjective Patient postop day #1 following open right pseudoaneurysm repair yesterday. Patient tolerated procedure well. 250 estimated blood loss. Today endorses pain at surgical site, reasonably controlled. Denies chest pain or shortness of breath. No other new concerns. Telemetry reviewed��no events Review of Systems 10 point review of systems was completed and was otherwise negative unless stated in HPI Physical Exam Vital Signs (Past 24 Hours): Last Vital Signs Temp 37.4 C 07/22/18 11:20 Pulse 78 07/22/18 11:20 Resp 18 07/22/18 11:20 BP 107/63 07/22/18 11:20 Pulse Ox 92 07/22/18 11:20 Physical Exam: General: Comfortable, no acute distress Eyes: Sclerae anicteric, extraocular movements intact Lungs: Clear to auscultation bilaterally, no rhonchi or wheezes Cardiac: Regular rate and rhythm, crisp mechanical aortic valve closure Vascular: Palpable DP pulse on the right. Right common femoral artery surgical site dressed, tender to palpation. Prior hematoma no longer palpable. Mild surrounding ecchymosis. Abdomen: Soft, nontender, nondistended, positive bowel sounds. Extremities: Well perfused, no peripheral edema Skin: No rashes or lesions. Neuro: Nonfocal Psych: Alert orient x3, normal affect and mood
[2018-07-22] MEDS: WARFARIN SOD 6 MG TAB PO SCH (15:25)
[2018-07-22] MEDS: ROPINIROLE HCL 1 MG TABLET PO SCH (18:26)
[2018-07-22] MEDS ORDERED: ACETAMINOPHEN 1,000 MG/100 ML VIAL IV STA (19:39)
[2018-07-22] MEDS ORDERED: OXYCODONE HCL IR 5 MG TAB (IMMEDIATE RELEASE) PO STA (19:40)
--- NOTE | 2018-07-22 20:54 | Hospitalist Progress Note ---
Date of Service July 22, 2018 Assessment & Plan (1) Pseudoaneurysm following procedure: right groin, s/p cardiac catheterization at outside hospital on 07/07/18. POD #1 s/p repair by Dr. Alfaro. 4 defects were found and repaired. Defer management to vascular team. Some leakage from incision today requiring pressure dressing. Repeat CBC in am for stability in light of coumadin, asa, etc. (2) History of aortic valve replacement: INR goal 2-3. coumadin resumed yesterday. daily INR while here. (3) Hypothyroidism (acquired): TSH normal. Cont synthroid as is. (4) CAD in [place] artery: s/p PCI to LAD at [facility] on 07/07/18. Cont aspirin/brilinta. Cont BB. Cont statin therapy. (5) Tobacco abuse: quit smoking earlier this month will encourage to remain smoke-free offer nicoderm, if desired (6) Depression: cont outpatient meds (7) Hyperlipidemia: statin (8) Restless leg syndrome: cont requip iron studies normal (9) Wheeze: check cxr, r/o pulm edema, other pathology (10) DVT prophylaxis: coumadin PT, OT evals to ensure safe for home when surgically ready to leave hospital Subjective main complaint is that of ongoing right groin pain later in the day the incision had been leaking, Dr. Alfaro was contacted, and large pressure dressing was applied. she had considerable pain from this. she also has had mild cough but no dyspnea, Respiratory: no dyspnea on exertion Cardiovascular: no chest pain, no orthopnea and no paroxysmal nocturnal dyspnea Gastrointestinal: no abdominal pain Physical Exam Vital Signs (Past 24 Hours): Last Vital Signs Temp 37.2 C 07/22/18 19:35 Pulse 72 07/22/18 19:35 Resp 18 07/22/18 19:35 BP 109/65 07/22/18 19:35 Pulse Ox 94 07/22/18 19:35 Constitutional: + acute distress (2nd to right groin pain ) ENMT: external ear and nose normal, oropharynx normal (minimal posterior throat irritation ) Respiratory: Auscultation: + wheezes (slight, occasional ); no rales Cardiovascular: Rate/Rhythm: regular rate and regular rhythm Heart Sounds: normal S1 and normal S2 ([facility] valve closure sound); no gallop and no murmur Vessels: posterior tibial pulses present and dorsalis pedis pulses present; no JVD Extremities: no edema Gastrointestinal (Abdomen): normal bowel sounds, soft, nontender, no hepatosplenomegaly Skin: large amount of ecchymoses in the right groin and right anterior thigh; large dressing in place over right groin Psychiatric: A+Ox3, euthymic affect Results & Data Laboratory Results Laboratory Results - last 24 hr 07/22/18 07/22/18 07/22/18 06:20 06:20 06:20 WBC 14.54 H RBC 3.83 L Hgb 9.9 L Hct 31.4 L MCV 82.0 MCH 25.8 MCHC 31.5 L RDW Std Deviation 41.9 RDW Coeff of Pretty 13.9 Plt Count 208 MPV 9.7 Immature Gran % (Auto) 0.2 Neut % (Auto) 90.4 Lymph % (Auto) 5.4 [place] % (Auto) 3.9 Eos % (Auto) 0.1 Baso % (Auto) 0.0 Immature Gran # (Auto) 0.03 H Neut # (Auto) 13.15 H Lymph # (Auto) 0.79 L [place] # (Auto) 0.56 Eos # (Auto) 0.01 Baso # (Auto) 0.00 PT 12.9 H INR 1.3 H Sodium 133 L Potassium 4.4 Chloride 102 Carbon Dioxide 25 Anion Gap 7.0 BUN 19 H Creatinine 1.13 Est Cr Clr Drug Dosing 45.8 Est GFR ( Amer) 61.2 Est GFR (Non-Af Amer) 52.8 BUN/Creatinine Ratio 16.4 Glucose 127 H Calcium 8.8 Iron 35 TIBC 306 Transferrin 231 Transferrin % Sat 11 L Ferritin 188.2 (1) Depression Active/Remission status: remission status unspecified Depression Type: major depressive disorder Major depression recurrence: unspecified whether recurrent Qualified Code(s): F32.9 - Major depressive disorder, single episode, unspecified (2) Hyperlipidemia Hyperlipidemia type: unspecified Qualified Code(s): E78.5 - Hyperlipidemia, unspecified
[2018-07-23 05:55] LABS: Basophils # (auto) 0.02 K/uL (0-0.2); Basophils % (auto) 0.2 %; Eosinophils % (auto) 2.4 %; Hemoglobin 9.2 g/dL (12.0-16.0); Immature Granulocytes # (auto) 0.05 K/uL (0.00-0.02); Immature Granulocytes % (auto) 0.6 %; Lymphocytes # (auto) 1.73 K/uL (1.2-3.4); Lymphocytes % (auto) 20.8 %; Mean Corpuscular Hgb Conc 31.7 g/dL (32-36); Mean Corpuscular Volume 82.6 fL (80-100); Monocytes # (auto) 0.64 K/uL (0.11-0.59); Monocytes % (auto) 7.7 %; Neutrophils # (auto) 5.66 K/uL (1.4-6.5); Neutrophils % (auto) 68.3 %; Platelet Count 200 K/uL (130-400); RDW Coefficient of Variation 14.2 % (11.5-14.5); RDW Standard Deviation 42.9 fL (36.4-46.3); Red Blood Count 3.51 M/uL (4.2-5.4)
[2018-07-23 06:33] LABS: BUN Creatinine Ratio 21.9 (10-20); Creatinine Clr Calc Pharmacy 49.8 ml/min; Est GFR (African American) 67.6; Est GFR (Non-African American) 58.4; Potassium 3.6 mmol/L (3.5-5.1)
[2018-07-23] MEDS: LEVOTHYROXINE SODIUM 75 MCG TABLET PO SCH (07:10)
[2018-07-23 07:14] LABS: INR 1.6 (0.9-1.1); Prothrombin Time 16.2 Seconds (9.0-12.0)
[2018-07-23] MEDS: HYDROmorphone INJ 1 MG/ML SYRINGE IV PRN ×4 (07:42→19:49)
[2018-07-23] MEDS: ASPIRIN 81 MG ECTAB PO SCH (07:56)
[2018-07-23] MEDS: SIMVASTATIN 40 MG TAB PO SCH (07:56)
[2018-07-23] MEDS: EZETIMIBE 10 MG TABLET PO SCH (07:56)
[2018-07-23] MEDS: METOPROLOL TARTRATE 25 MG TAB PO SCH ×2 (07:56→20:56)
[2018-07-23] MEDS: SERTRALINE HCL 100 MG TABLET PO SCH (07:56)
[2018-07-23] MEDS: TICAGRELOR 90 MG TAB PO SCH ×2 (07:56→20:57)
[2018-07-23] MEDS: OXYCODONE HCL IR 5 MG TAB (IMMEDIATE RELEASE) PO PRN ×3 (09:19→23:23)
[2018-07-23] MEDS: ACETAMINOPHEN 1,000 MG/100 ML VIAL IV PRN ×2 (10:28→17:13)
[2018-07-23] MEDS ORDERED: BISACODYL 5 MG TABEC PO ONE (12:29)
[2018-07-23] MEDS: POLYETHYLENE (MIRALAX) 17 GM PACK PO SCH (15:09)
[2018-07-23] MEDS: WARFARIN SOD 6 MG TAB PO SCH (15:38)
--- NOTE | 2018-07-23 19:56 | Hospitalist Progress Note ---
Date of Service July 23, 2018 Assessment & Plan (1) Pseudoaneurysm following procedure: right groin, s/p cardiac catheterization at outside hospital on 07/07/18. The pseudoaneurysm appears to be a complication of care from that heart catheterization. POD #2 s/p repair by Dr. Alfaro. 4 defects were found and repaired. Defer management to vascular team. Some leakage from incision yesterday requiring pressure dressing. This dressing has been removed and the incision was stable today. Dr. Alfaro stated she can ambulate as tolerated. Present on Admission?: Yes (2) Postprocedural hematoma: right groin/right femoral artery area - complication of care from recent heart catheterization and right femoral artery access. s/p evacuation of hematoma by Dr. Alfaro and repair of pseudoaneurysm. H/H mildly lower today - this is likely multifactorial from blood loss from recent surgery, oozing from incision, and frequent blood draws. cbc in am for stability. will need Fe supplementation at d/c. Present on Admission?: Yes (3) History of aortic valve replacement: INR goal 2-3. cont coumadin. INR trending up as expected. daily INR while here. (4) Hypothyroidism (acquired): TSH normal. Cont synthroid as is. (5) CAD in [place] artery: s/p PCI to LAD at [facility] on 07/07/18. Cont aspirin/brilinta. Cont BB. Cont statin therapy. (6) Tobacco abuse: quit smoking earlier this month will encourage to remain smoke-free (7) Depression: cont outpatient meds (8) Hyperlipidemia: statin (9) Restless leg syndrome: cont requip iron studies normal (10) Wheeze: resolved. etiology uncertain. chest x-ray yesterday was normal. (11) Acute blood loss anemia: mild. repeat CBC in am. Fe supplement at d/c. (12) Constipation: ordered bowel regimen with lack of nausea/emesis doubt ileus (13) DVT prophylaxis: coumadin PT, OT evals to ensure safe for home ok to d/c tele -- move to med/surg spouse updated several times Subjective patient with ongoing right groin pain had drainage from the incision yesterday requiring application of pressure dressing this was removed today she denies any new complaints although she is frustrated how the last few weeks have gone for her health feels a bit bloated in her abdomen and has had hiccups passing flatus, however has not had bowel movement in a few days eating w/o difficulty, nausea, or emesis Constitutional: no fever Respiratory: no cough and no dyspnea Cardiovascular: no chest pain Gastrointestinal: + bloating and + constipation; no abdominal pain, no nausea, no vomiting and no diarrhea/loose stools Physical Exam Vital Signs (Past 24 Hours): Last Vital Signs Temp 37.1 C 07/23/18 15:58 Pulse 78 07/23/18 16:00 Resp 18 07/23/18 15:58 BP 107/64 07/23/18 15:58 Pulse Ox 96 07/23/18 15:58 Constitutional: well developed, well nourished and average body habitus; no acute distress ENMT: external ear and nose normal, oropharynx normal Respiratory: normal respiratory effort, lungs clear to auscultation Auscultation: no rales Cardiovascular: Rate/Rhythm: regular rate and regular rhythm Heart Sounds: normal S1 and normal S2 (mech valve closure sound); no gallop and no murmur Vessels: posterior tibial pulses present and dorsalis pedis pulses present; no JVD Extremities: no edema Gastrointestinal (Abdomen): normal bowel sounds, soft, nontender, no hepatosplenomegaly Inspection/Auscultation: + abdomen distended (minimal-mild ) Skin: dressing intact to right groin; ecchymoses about the right thigh similar to yesterday's exam Psychiatric: A+Ox3, euthymic affect Results & Data Laboratory Results Laboratory Results - last 24 hr 07/20/18 07/23/18 07/23/18 00:20 05:36 05:36 WBC 8.30 RBC 3.51 L Hgb 9.2 L Hct 29.0 L MCV 82.6 MCH 26.2 MCHC 31.7 L RDW Std Deviation 42.9 RDW Coeff of Pretty 14.2 Plt Count 200 MPV 9.0 Immature Gran % (Auto) 0.6 Neut % (Auto) 68.3 Lymph % (Auto) 20.8 [place] % (Auto) 7.7 Eos % (Auto) 2.4 Baso % (Auto) 0.2 Immature Gran # (Auto) 0.05 H Neut # (Auto) 5.66 Lymph # (Auto) 1.73 [place] # (Auto) 0.64 H Eos # (Auto) 0.20 Baso # (Auto) 0.02 PT 16.2 H INR 1.6 H Sodium Potassium Chloride Carbon Dioxide Anion Gap BUN Creatinine Est Cr Clr Drug Dosing Est GFR ( Amer) Est GFR (Non-Af Amer) BUN/Creatinine Ratio Glucose Calcium Crossmatch See Detail 07/23/18 05:36 WBC RBC Hgb Hct MCV MCH MCHC RDW Std Deviation RDW Coeff of [place] Plt Count MPV Immature Gran % (Auto) Neut % (Auto) Lymph % (Auto) [place] % (Auto) Eos % (Auto) Baso % (Auto) Immature Gran # (Auto) Neut # (Auto) Lymph # (Auto) [place] # (Auto) Eos # (Auto) Baso # (Auto) PT INR Sodium 136 Potassium 3.6 D Chloride 103 Carbon Dioxide 28 Anion Gap 5.0 BUN 23 H Creatinine 1.04 Est Cr Clr Drug Dosing 49.8 Est GFR ( Amer) 67.6 Est GFR (Non-Af Amer) 58.4 BUN/Creatinine Ratio 21.9 H Glucose 134 H Calcium 8.0 L Crossmatch (1) Depression Active/Remission status: remission status unspecified Depression Type: major depressive disorder Major depression recurrence: unspecified whether recurrent Qualified Code(s): F32.9 - Major depressive disorder, single episode, unspecified (2) Hyperlipidemia Hyperlipidemia type: unspecified Qualified Code(s): E78.5 - Hyperlipidemia, unspecified
[2018-07-23] MEDS: ROPINIROLE HCL 1 MG TABLET PO SCH (20:57)
[2018-07-24] MEDS: ACETAMINOPHEN 1,000 MG/100 ML VIAL IV PRN (02:57)
[2018-07-24] MEDS: LEVOTHYROXINE SODIUM 75 MCG TABLET PO SCH (06:01)
[2018-07-24 06:36] LABS: Hematocrit (blood only) 28.7 % (37-47); Hemoglobin 9.1 g/dL (12.0-16.0); Mean Corpuscular Hgb Conc 31.7 g/dL (32-36); Mean Corpuscular Volume 82.7 fL (80-100); Mean Platelet Volume 9.1 fL (7.4-10.4); Platelet Count 199 K/uL (130-400); RDW Coefficient of Variation 14.1 % (11.5-14.5); RDW Standard Deviation 42.6 fL (36.4-46.3); Red Blood Count 3.47 M/uL (4.2-5.4); White Blood Count 8.85 K/uL (4.8-10.8)
[2018-07-24 06:44] LABS: Prothrombin Time 19.8 Seconds (9.0-12.0)
[2018-07-24 07:17] LABS: BUN Creatinine Ratio 20.4 (10-20); Calcium 8.5 mg/dl (8.5-10.1); Creatinine Clr Calc Pharmacy 60.9 ml/min; Est GFR (African American) 86.3; Est GFR (Non-African American) 74.5; Potassium 3.8 mmol/L (3.5-5.1)
[2018-07-24] MEDS ORDERED: BISACODYL 5 MG TABEC PO ONE (08:45)
[2018-07-24] MEDS: POLYETHYLENE (MIRALAX) 17 GM PACK PO SCH (09:01)
[2018-07-24] MEDS: SERTRALINE HCL 100 MG TABLET PO SCH (09:01)
[2018-07-24] MEDS: EZETIMIBE 10 MG TABLET PO SCH (09:01)
[2018-07-24] MEDS: SIMVASTATIN 40 MG TAB PO SCH (09:01)
[2018-07-24] MEDS: METOPROLOL TARTRATE 25 MG TAB PO SCH ×2 (09:01→21:26)
[2018-07-24] MEDS: TICAGRELOR 90 MG TAB PO SCH ×2 (09:02→21:28)
[2018-07-24] MEDS: ASPIRIN 81 MG ECTAB PO SCH (09:02)
[2018-07-24] MEDS: OXYCODONE HCL IR 5 MG TAB (IMMEDIATE RELEASE) PO PRN ×2 (12:50→19:18)
[2018-07-24] MEDS ORDERED: WARFARIN SOD 3 MG TAB PO SCH (16:00)
[2018-07-24] MEDS ORDERED: BISACODYL 10 MG SUPP PR STA (16:43)
--- NOTE | 2018-07-24 18:15 | Hospitalist Progress Note ---
Date of Service July 24, 2018 Assessment & Plan (1) Pseudoaneurysm following procedure: s/p cardiac catheterization at outside hospital on 07/07/18. The pseudoaneurysm appears to be a complication of care from that heart catheterization. POD #3 s/p repair by Dr. Alfaro. 4 defects were found and repaired (1 in SFA and 3 in the common femoral artery). Defer management to vascular team. Ambulate as tolerated. No heavy lifting over 10 pounds. H/H stable today. There may be oozing from the incision due to coumadin/brilinta/asa use. Present on Admission?: Yes (2) Postprocedural hematoma: right groin/right femoral artery area - complication of care from recent heart catheterization and right femoral artery access. s/p evacuation of hematoma by Dr. Alfaro and repair of pseudoaneurysm. POD #3. H/H stable today. cbc in am for stability. will need Fe supplementation at d/c. (3) History of aortic valve replacement: INR goal 2-3. INR today 2. cont coumadin. INR in am. (4) Hypothyroidism (acquired): TSH normal. Cont synthroid as is. (5) CAD in [place] artery: s/p PCI to LAD at [facility] on 07/07/18. Cont aspirin/brilinta. Cont BB. Cont statin therapy. (6) Tobacco abuse: quit smoking earlier this month will encourage to remain smoke-free (7) Depression: cont outpatient meds (8) Hyperlipidemia: statin (9) Restless leg syndrome: cont requip iron studies normal (10) Acute blood loss anemia: mild. repeat CBC today stable. Fe supplement at d/c. (11) Constipation: despite miralax and dulcolax several times still no BM. will give dulcolax suppos x 1 today. (12) DVT prophylaxis: coumadin PT, OT evals to ensure safe for home; needs to be able to go up steps hopefully home tomorrow AM Subjective patient c/o right groin pain especially with activity however she is ambulating to the bathroom and has walked the halls she has more than 10 steps in her house and has yet to see if she can negotiate steps incision in right groin has had little drainage no bowel movement yet but IS passing flatus no nausea or vomiting no dyspnea or chest pain Constitutional: + fatigue; no fever and no anorexia Respiratory: no cough and no dyspnea Cardiovascular: no chest pain Gastrointestinal: + constipation; no abdominal pain, no nausea, no vomiting and no diarrhea/loose stools Physical Exam Vital Signs (Past 24 Hours): Last Vital Signs Temp 37.4 C 07/24/18 15:02 Pulse 77 07/24/18 15:02 Resp 18 07/24/18 15:02 BP 110/69 07/24/18 15:02 Pulse Ox 96 07/24/18 15:02 Constitutional: well developed, well nourished and average body habitus; no acute distress ENMT: external ear and nose normal, oropharynx normal Respiratory: normal respiratory effort, lungs clear to auscultation Cardiovascular: Rate/Rhythm: regular rate and regular rhythm Heart Sounds: normal S1 and normal S2 (mech valve closure sound); no gallop and no murmur Vessels: posterior tibial pulses present and dorsalis pedis pulses present; no JVD Extremities: + edema (1+ right leg as well as right thigh edema - about the same as yesterday) Gastrointestinal (Abdomen): normal bowel sounds, soft, nontender, no hepatosplenomegaly Skin: dressing intact to right groin; ecchymoses about the right thigh extending down towards the knee; mild edema right thigh; no active bleeding from right groin Psychiatric: A+Ox3, euthymic affect Results & Data Laboratory Results Laboratory Results - last 24 hr 07/24/18 07/24/18 07/24/18 06:11 06:11 06:11 WBC 8.85 RBC 3.47 L Hgb 9.1 L Hct 28.7 L MCV 82.7 MCH 26.2 MCHC 31.7 L RDW Std Deviation 42.6 RDW Coeff of Pretty 14.1 Plt Count 199 MPV 9.1 PT 19.8 H INR 2.0 H Sodium 139 Potassium 3.8 Chloride 105 Carbon Dioxide 28 Anion Gap 6.0 BUN 17 Creatinine 0.85 Est Cr Clr Drug Dosing 60.9 Est GFR ( Amer) 86.3 Est GFR (Non-Af Amer) 74.5 BUN/Creatinine Ratio 20.4 H Glucose 96 Calcium 8.5 (1) Depression Depression Type: major depressive disorder Major depression recurrence: unspecified whether recurrent Active/Remission status: remission status un specified Qualified Code(s): F32.9 - Major depressive disorder, single episode, unspecified (2) Hyperlipidemia Hyperlipidemia type: unspecified Qualified Code(s): E78.5 - Hyperlipidemia, unspecified (3) Constipation Constipation type: other constipation type Qualified Code(s): K59.09 - Other constipation
[2018-07-24] MEDS: ROPINIROLE HCL 1 MG TABLET PO SCH (21:27)
[2018-07-24] MEDS: ACETAMINOPHEN 500 MG TAB PO SCH (21:28)
[2018-07-25] MEDS: LEVOTHYROXINE SODIUM 75 MCG TABLET PO SCH (05:51)
[2018-07-25 06:40] LABS: Hematocrit (blood only) 27.8 % (37-47); Hemoglobin 8.8 g/dL (12.0-16.0); Mean Corpuscular Hgb Conc 31.7 g/dL (32-36); Mean Corpuscular Volume 82.7 fL (80-100); Mean Platelet Volume 9.2 fL (7.4-10.4); Platelet Count 211 K/uL (130-400); RDW Coefficient of Variation 14.1 % (11.5-14.5); RDW Standard Deviation 42.6 fL (36.4-46.3); Red Blood Count 3.36 M/uL (4.2-5.4); White Blood Count 7.21 K/uL (4.8-10.8)
[2018-07-25 06:51] LABS: Prothrombin Time 19.3 Seconds (9.0-12.0)
[2018-07-25 07:07] LABS: BUN Creatinine Ratio 14.2 (10-20); Calcium 8.3 mg/dl (8.5-10.1); Creatinine Clr Calc Pharmacy 63.9 ml/min; Est GFR (African American) 91.5; Est GFR (Non-African American) 78.9; Potassium 3.5 mmol/L (3.5-5.1)
[2018-07-25] MEDS: OXYMETAZOLINE 0.05% 30 ML BTL PRN (08:05)
[2018-07-25] MEDS: OXYCODONE HCL IR 5 MG TAB (IMMEDIATE RELEASE) PO PRN (09:33)
[2018-07-25] MEDS: SIMVASTATIN 40 MG TAB PO SCH (09:34)
[2018-07-25] MEDS: SERTRALINE HCL 100 MG TABLET PO SCH (09:34)
[2018-07-25] MEDS: METOPROLOL TARTRATE 25 MG TAB PO SCH (09:34)
[2018-07-25] MEDS: POLYETHYLENE (MIRALAX) 17 GM PACK PO SCH (09:35)
[2018-07-25] MEDS: TICAGRELOR 90 MG TAB PO SCH (09:35)
[2018-07-25] MEDS: ASPIRIN 81 MG ECTAB PO SCH (09:35)
[2018-07-25] MEDS: EZETIMIBE 10 MG TABLET PO SCH (09:35)
[2018-07-25] MEDS: ACETAMINOPHEN 500 MG TAB PO SCH (09:35)
--- NOTE | 2018-08-01 21:22 | Discharge Summary ---
Date of Service date of admission - 07/20/18 date of discharge - 07/25/18 Admission HPI Per Admitting Provider This is a 62-year-old female with a past medical history that includes CAD, NSTEMI 2009, STEMI 2013, ascending aortic repair in [place] in 2009, aortic valve replacement with mechanical valve 2009 in [place], restless leg syndrome with calf pain, and tobacco abuse. Patient presented to [facility] 2 days ago on 07/18/2018 with chest pain and tightness. She recently had a PCI with single vessel stent 07/07/2018 at [facility] completed by cardiology staff from [place]. During the procedure they had complications with bleeding due to elevated INR. Ultrasound examination of the right groin today indicated possible pseudoaneurysm and patient was transferred to [facility] for further evaluation and care. Patient states that that area is tender but not painful. She has no fever or chills. She has no chest pain or tightness at this time. She has no shortness of breath or hypoxia. She denies any dizziness, syncope, presyncope, abdominal pain, nausea vomiting or diarrhea. She has no other acute complaints at this time. Principal Diagnosis pseudoaneurysm of right femoral artery s/p repair Discharge Exam Constitutional well developed, well nourished and average body habitus; no acute distress ENMT external ear and nose normal, oropharynx normal Respiratory normal respiratory effort, lungs clear to auscultation Auscultation: no rales Cardiovascular Rate/Rhythm: regular rate and regular rhythm Heart Sounds: normal S1 and normal S2 ([facility] valve closure sound); no gallop and no murmur Vessels: posterior tibial pulses present and dorsalis pedis pulses present; no JVD Extremities: + edema (1+ right leg as well as right thigh edema; no edema left leg) Gastrointestinal (Abdomen) normal bowel sounds, soft, nontender, no hepatosplenomegaly Inspection/Auscultation: abdomen not distended Musculoskeletal right groin - operative site clean, no bleeding or drainage; no large hematoma. Psychiatric A+Ox3, euthymic affect Discharge Data Allergies Allergy/AdvReac Type Severity Reaction Status Date / Time Latex, Natural Rubber AdvReac Localized Unverified 07/28/18 16:06 skin reaction Sulfa (Sulfonamide AdvReac Nausea and Unverified 07/28/18 16:06 Antibiotics) vomiting Consultations cardiology - Brett Adames MD vascular surgery - Robert Alfaro MD PT, OT Procedures Performed Operation Date: 07/21/18 Right Groin Repair of Pseudoaneurysm - Robert Alfaro MD Ordered Studies US arterial duplex LE Right: IMPRESSION: 1. 31 x 21 x 10 mm pseudoaneurysm, arising from the right common femoral artery 2. No evidence of right lower extremity arterial stenosis Hospital Course (1) Pseudoaneurysm following procedure: s/p cardiac catheterization at outside hospital on 07/07/18. The pseudoaneurysm appears to be a complication of care from that heart catheterization. Upon transfer to [facility] she ultimately underwent surgical repair of the pseudoaneurysm by Dr. Robert Alfaro. 4 defects were found and repaired (1 in SFA and 3 in the common femoral artery). Her post-op course was complicated by considerable pain requiring heavy use of opiates, mild-moderate acute blood loss anemia (no PRBCs were needed however), and oozing requiring manual compression. Her oozing was made worse by the obligate use of coumadin for her mechanical valve as well as aspirin/brilinta due to CAD. Fortunately the oozing from the operative site resolved with pressure dressings. Over several days post-op she made gradual improvement in her pain and ability to ambulate comfortably. She was seen by PT/OT and cleared for discharge home. At time of discharge she was given the following instructions by vascular- * Ambulation as tolerated. * No heavy lifting over 10 pounds. * No driving. Discharge hemoglobin was 8.8. (2) Postprocedural hematoma: right groin/right femoral artery area - complication of care from recent heart catheterization and right femoral artery access. s/p evacuation of hematoma by Dr. Alfaro and repair of pseudoaneurysm. (3) History of aortic valve replacement: INR goal 2-3. INR on day of discharge was 2. She was advised to continue her usual coumadin regimen as previous and to have a follow-up INR with her coumadin provider within 3-4 days of discharge. (4) Hypothyroidism (acquired): TSH normal. Continue synthroid as previous. (5) CAD in [place] artery: s/p PCI to LAD at [facility] on 07/07/18. Cont aspirin/brilinta. Cont Beta maggi. Cont statin therapy. No ischemic symptoms while hospitalized. (6) Tobacco abuse: quit smoking in early June 2018. encouraged to remain smoke-free. (7) Depression: continue outpatient meds (8) Hyperlipidemia: statin (9) Restless leg syndrome: continue requip iron studies were normal during this hospital stay (10) Acute blood loss anemia: mild to moderate. discharge hemoglobin was 8.8. she was advised to take ferrous sulfate BID after discharge for 2-3 months. (11) Constipation: finally moved her bowels prior to discharge. in light of iron supplementation and narcotic usage she was counseled to utilize a bowel regimen after discharge. she never had evidence of ileus while hospitalized. Total Time Total Time Spent Total Time Spent (In Minutes): 45 Total Time Includes: Examination of the Patient, Discharge Planning, Medication Reconciliation and Communication With Other Providers Discharge Plan Discharge Items Patient Disposition: Home - Self-Care Reason For Visit: PSEUDOANEURYSM Discharge Diagnosis: pseudoaneurysm of right femoral artery with repair by Dr. Alfaro Discharge Goals: Diagnostic testing, Learn about illness and Therapeutic intervention Activity: As commented below Activity Comment: no heavy lifting over 10-15 pounds x 2 weeks; no driving x 1 week Bathing Comment: may shower but NO immersion (no tub baths or swimming) Sexual Activity: Wait until after follow-up appointment Exercise/Sports: Wait until after follow-up appointment Weightbearing: Right weightbearing Non-emergency contact: Primary Care Provider and Surgeon Call non-emergency contact if: you have any medication questions, your pain is not controlled, your pain is worsening, your pain is unusual for you, your pain is concerning for you, your temperature is above 100.5, your wound has increased redness and your wound pain has increased Follow-up/Referrals: Dr. Vasile Lund [Other] - 08/01/18 3:30 pm (On WednesdayJuly 29 in the morning, go to [facility] to have labs drawn. The results will be sent to Dr. Lund's office and his nurse will call you with directions as to how to take your Coumadin. Please, follow up with Dr. Vasile Lund on WednesdayAugust 01 at 3:30 pm. *If you need to change this appointment, call the office at [phone].) Robert Alfaro MD [Physician] - 08/04/18 2:00 pm (Please, see Dr. Alfaro on August 04 at 2:00 pm. *This office is located at [address] [place] [address] in [place] - next to [address] and [facility]. If you need to change this appointment, call the office at [phone].) Diet: Heart Healthy Addtl Provider Instructions: From Vasile Rivas - Hospitalist - You underwent surgical repair of the right femoral artery pseudoaneurysm by Dr. Robert Alfaro with [facility]. You had some weeping from the incision post-operatively but overall you have recovered nicely. Your INR on day of discharge is 2. Your hemoglobin (blood count) on day of discharge is 2. You have been cleared by physical therapy to return home. At this time we recommend the following - 1. no driving x 1 week 2. no heavy lifting over 10-15 pounds for 2 weeks 3. ok to shower at this time 4. may place a dressing on the incision if there is drainage; if 1-2 days go by and there is no drainage you can defer on placing additional dressings 5. take seus-baw-rowdpci ferrous sulfate (iron) 325mg twice a day for 1-2 month s to replenish your iron and help your blood count. Iron constipates and causes the stool to be dark. These are normal side effects. 6. take a bowel regimen consisting of miralax once daily and senakot 2 tabs daily. Both products are [id number]. 7. pain - * take tylenol 1000mg up to three times a day * take oxycodone 5-10mg, 1-2 tabs, every 4-6 hours as needed for pain * do not drink alcohol while taking prescription pain pills * do not drive while taking prescription pain pills 8. elevate your right leg while resting on the cough or in your chair; this will help with swelling 9. have your INR checked THIS 07/29/18 10. follow-up - * see Dr. Lund within 1 week * see Dr. Alfaro within 10 days * see your energy efficient site manager within 2 weeks 11. Return to [facility] or any hospital if - You have fevers over 100.5 degrees. You have foul-smelling discharge, worsening redness, worsening swelling, or worsening pain from the right groin incision. You are short of breath or having chest pain. Any other concerns. Prescriptions: New oxycodone 5 mg Tablet 5 - 10 mg PO Q4H PRN (Reason: pain) Qty: 30 RF: 0 ferrous sulfate 325 mg (65 mg iron) tablet 325 mg PO BID Qty: 60 RF: 1 Continued ropinirole 3 mg tablet 3 mg PO HS RF: 0 sertraline 100 mg tablet 100 mg PO HS RF: 0 fenofibrate micronized 67 mg capsule 67 mg PO QAM RF: 0 simvastatin 40 mg tablet 40 mg PO QAM RF: 0 levothyroxine 75 mcg tablet 75 mcg PO QAM RF: 0 warfarin 6 mg tablet 6 mg PO 5XWK RF: 0 nitroglycerin 0.4 mg tablet, sublingual See Rx Instructions .ROUTE .COMPLEX PRN (Reason: Chest Pain) RF: 0 ezetimibe 10 mg tablet 10 mg PO QAM RF: 0 ticagrelor 90 mg tablet 90 mg PO BID RF: 0 aspirin 81 mg Tablet,Delayed Release (Dr/Ec) 81 mg PO QAM RF: 0 warfarin 3 mg Tablet 3 mg PO 2XWK RF: 0 No Action metoprolol succinate [Toprol XL] 25 mg tablet extended release 24 hr 25 mg PO BID RF: 0 sennosides [senna] 8.6 mg tablet 17.2 mg PO DAILY PRN (Reason: Constipation) RF: 0 polyethylene glycol 3350 [Miralax] 17 gram powder in packet 17 g PO DAILY PRN (Reason: Constipation) RF: 0 Stand-Alone Forms: [facility], Opioid Pain Management Discharge Orders: Discharge Order (Routine); Ordered 07/25/18 Ordered By: Vasile Rivas Admission Data Admit Date/Time: 07/20/18 00:04 Attending Provider: Vasile Rivas Admit Provider: Irena Shoemaker Primary Care Provider: Vasile Lund Other Providers: Marquise Adames ; Robert Alfaro ; Analia Greco ; Dee Dockery ; Sophia Montalvo ; Bernadette Temple ; Carmita Barnhart ; Aniya Noland ; Josias Vera ; Eric Burns ; Hernán Walters ; Melvi Walters ; Dakotah Cueto ; Anna Ceja ; Bandar Carlson ; Jefry Casillas ; Rolo Wood ; Magdi Bonner ; Gerard Magallanes ; Blossom Manzanares ; Jamie Pope ; Alvina Tesfaye ; Sara Pope ; Juan Boudreaux ; Ashely Jurado ; Jovon Mosley ; Dede Hussein ; Galilea Watkins ; Pavel Valle ; Irena Reyna ; Alley Lennon ; Anahi Wilkinson ; Meenakshi Tejeda A ; José Luis Tejeda V ; Tobin Castro ; Sophia Mcguire ; Jose Alfredo Smith ; Sara Fong V ; Hector Carson ; Taylor Nicole ; Maria Luz Alexander ; Mera Mcguire ; José Luis Murillo ; Vasile Nolan ; Freedom Manzanares ; Joanna Clayton ; Anahi Mackay ; Eric Robins ; Amelia Thomas ; Shreyas Magallanes ; Sadie Burgess ; Marquise Hernandes Service: Medical Other Interventions: Discharge Summary Assessment (RN) Last Done: 07/25/18 10:59 Pending Studies at Discharge: No DC Date/Time DO NOT enter until pt leaves facility: 07/25/18 11:57
== END 2018-07-25 11:57 | disposition home or self-care (01) ==
LOC: 1E 23:21 → SUATTDRO 23:21 → 2S 07-20 16:03 → 3N 07-23 19:39

== ENCOUNTER 2018-09-02 18:49 | Inpatient (IN) ==
[2018-09-02] MEDS ORDERED: WARFARIN SOD 5 MG TAB PO ONE (23:19)
[2018-09-02] MEDS ORDERED: ONDANSETRON INJ 2 MG/ML 2 ML VIAL IV PRN (23:22)
[2018-09-02] MEDS ORDERED: HYDROmorphone INJ 0.5 MG/0.5 ML SYR IV PRN (23:22)
[2018-09-02] MEDS ORDERED: ACETAMINOPHEN 325 MG TAB PO PRN (23:22)
[2018-09-02] MEDS ORDERED: NITROGLYCERIN SL 0.4 MG/TAB TAB SL PRN (23:22)
[2018-09-02] MEDS ORDERED: ROPINIROLE HCL 1 MG TABLET PO ONE (23:30)
[2018-09-02] MEDS ORDERED: SIMVASTATIN 40 MG TAB PO ONE (23:30)
--- NOTE | 2018-09-02 23:35 | History & Physical Report ---
Date of Service September 02, 2018 Assessment & Plan (1) Chest pain: 62-year-old female was transferred from [facility] on the evening of 02 September 2018 for chest pain. Chest pain, CAD: Apparently has been going on for about 1 week now. Has an extensive cardiac history including mechanical aortic valve replacement, ascending aortic root replacement (for an ascending aortic aneurysm), and multiple cardiac stents. - Per OSH records, EKG was NSR with a rate of 72 and a known right bundle branch block. Troponin at 1535 was < 0.02. - Here will repeat EKG, check basic labs including repeat serial troponins. - We will treat her chest pain with serial nitroglycerin if blood pressure to lerates. Also can try Dilaudid as needed. - Continue her home Lidoderm patch, pantoprazole, Plavix. - We will consult cardiology. Her regular seed cone picker is Dr. Adames. Shortness of breath: Patient notes some baseline shortness of breath over the past week. Denies any cough or known recent illness. On arrival here, lung sounds clear to auscultation and she is speaking easily in full sentences. - Per OSH records, d-dimer was positive. CT of the chest was reported as negative for acute findings. - We will check a chest x-ray here. Low INR: Patient says she is on Coumadin 3 mg daily and is generally managed by her primary care provider (Dr. Lund) as well as cardiology. She denies missing any doses. - Per OSH records, INR was 1.46. - We will give a single supplemental Coumadin 5 mg dose this evening. Otherwise we will continue with her home 3 mg daily dosing. This can be modified by her inpatient team going forward. Right lower extremity swelling: Patient says this feels more acute on chronic. This may be related to her previous pseudoaneurysm repair in June 2018 versus some chronic venous insufficiency. She did have a positive d-dimer at OSH. - As a precaution, will order right lower extremity ultrasound to look for DVT. - We will keep her on her outpatient Lasix 20 mg daily. Anemia: At OSH, Hb 10.5. No reports or evidence of acute bleeding. Patient says she probably should be on iron as an outpatient. - Will recheck Hb in a.m. Ongoing medical issues: - Hypertension, hyperlipidemia: Continue her home Zetia, fenofibrate, Zocor. - Restless leg syndrome: Continue home Requip. - Hypothyroidism: Continue home Synthroid. - Depression: Continue home Zoloft. Code status: Patient states she would want CPR, would want use of vasopressors, but would not want to be intubated in case of respiratory arrest. Diet: We will start n.p.o. at midnight in case of procedure tomorrow. DVT prophy: Coumadin. PT/OT: Deferred. Disbo: Admitted to telemetry. 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 Patient states that over the past three weeks or so she has been getting a stabbing pain between her shoulder blades that radiates towards the front of her chest. She occasionally gets some heaviness in her chest as well. She says she was admitted to [facility] for this and was ultimately treated with a lidocaine patch, steroids, and "stomach medications" which seemed to help. On arrival here, patient notes the following: - Says over the last week she continues to have some sharp pain in her back. - Says that she feels more easily short of breath, including at rest. -Says that her right leg seems more swollen, particularly after long day of walking. She continues to have some swelling in her right groin after her pseudoaneurysm repair. She also gets some bilateral calf pain with ambulation. - Says that she contacted her primary care provider yesterday and was advised to go to the emergency department. She decided not to, instead taking a single home a nitroglycerin dose which helped her chest symptoms. - She says she contacted her primary care provider again today and was again advised to go to the emergency department, so she did so. She says that there the Dilaudid she was given improved her symptoms but did not provide complete relief. - She does note some ongoing depressive symptoms, primarily dealing with multiple medicines that she has to take. She says that she did speak with someone about this at the other hospital. -At present, she denies any nausea, vomiting, diarrhea, recent fevers or chills, radiation of her symptoms out of her chest, or other acute concerns. Past medical history includes hypertension, hyperlipidemia, CAD with stents, ascending aortic aneurysm, right lower extremity pseudoaneurysm, restless leg syndrome, hypothyroidism, depression. Past surgical history includes replacement of the aortic root and ascending aorta in December 2009 (in [place]), per patient two stents placed in 2009, PCI to mid LAD in June 2018, right lower extremity pseudoaneurysm (s/p PCI) repair in June 2018, partial hysterectomy, right Gomes's neuroma removal, bilateral carpal tunnel release, tonsillectomy, cholecystectomy, right total knee replacement. Social history includes smoking for 20-25 years (then quit for 20 years, then restarted for 18 months, then quit again in June 2018). Denies alcohol use. Lives at home with family. Allergies Allergy/AdvReac Type Severity Reaction Status Date / Time Latex, Natural Rubber AdvReac Localized Unverified 07/28/18 16:06 skin reaction Sulfa (Sulfonamide AdvReac Nausea and Unverified 07/28/18 16:06 Antibiotics) vomiting Home Medications Home Medications Medication Instructions Recorded Confirmed Type aspirin 81 mg PO QAM 07/20/18 08/01/18 History ezetimibe 10 mg PO QAM 07/20/18 08/01/18 History fenofibrate micronized 67 mg PO QAM 07/20/18 08/01/18 History levothyroxine 75 mcg PO QAM 07/20/18 08/01/18 History nitroglycerin See Rx Instructions .ROUTE 07/20/18 08/01/18 History .COMPLEX PRN ropinirole 3 mg PO HS 07/20/18 08/01/18 History sertraline 100 mg PO HS 07/20/18 08/01/18 History simvastatin 40 mg PO QAM 07/20/18 08/01/18 History ticagrelor 90 mg PO BID 07/20/18 08/01/18 History warfarin 3 mg PO 2XWK 07/20/18 08/01/18 History warfarin 6 mg PO 5XWK 07/20/18 08/01/18 History ferrous sulfate 325 mg PO BID #60 tab 07/25/18 08/01/18 Rx oxycodone 5 - 10 mg PO Q4H PRN #30 tab 07/25/18 08/01/18 Rx metoprolol succinate [Toprol XL] 25 mg PO BID 07/28/18 08/01/18 History polyethylene glycol 3350 [Miralax] 17 g PO DAILY PRN 07/28/18 08/01/18 History sennosides [senna] 17.2 mg PO DAILY PRN 07/28/18 08/01/18 History Past Med/Surg History Social History Preferred Language: Malay Communication Ability: Effective Laboratory Apparatus Glass Grinder Required: No Beliefs That Will Affect Care: None marital status: marital status details: Sara White [phone] Current Living Situation: Spouse current occupational status: other 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 Gastrointestinal: Denies any abdominal pain, nausea/vomiting/diarrhea Musculoskeletal: Denies any acute extremity pains, myalgias, or focal weakness Skin: Denies any known acute rashes or lesions Neuro: Denies any headache, acute focal weakness or numbness, or difficulties with speech or swallow. Psych: See HPI. Physical Exam Vital Signs (Past 24 Hours): Last Vital Signs Temp 36.6 C 09/02/18 22:03 Pulse 70 09/02/18 22:03 Resp 18 09/02/18 22:03 BP 137/85 09/02/18 22:03 Pulse Ox 98 09/02/18 22:03 Physical Exam: General Appearance: Awake, alert & oriented, comfortable in general, NAD. CV: +S1S2 RRR, mechanical valve closure sound. Pulm: Clear to auscultation throughout. No accessory muscle use. Abdomen: +BS, soft, non-tender, non-distended. There is a well-healed surgical scar in the right inguinal region with some mild local swelling that is nontender to palpation and non-erythematous. Extremities: Moving all extremities naturally and easily. Well-healed right TKA scar. 2+ edema in the right leg and trace edema in the left leg. Neuro: No gross neuro deficits. Ambulates without difficulty for getting in and out of bed and walking over to the chair. Code Status & VTE Plan Code Status Full code except does not want mechanical ventillation VTE Prophylaxis Plan VTE Prophylaxis will be ordered: Yes Supervising Physician Co-Signing Physician Notes Patient seen and examined, chart reviewed, case discussed with Dr. Mccallum and I agree with his assessment and plan as documented above. Briefly, 62yo female with CAD, aortic root aneurysm repair presenting with CP. Resident Activity Tracking Resident Involvement: Resident Care Provided Care Provided: Adult Hospital Medicine (1) Hyperlipidemia Hyperlipidemia type: unspecified Qualified Code(s): E78.5 - Hyperlipidemia, unspecified
[2018-09-02] MEDS ORDERED: METOPROLOL SUCC 25MG EXT REL TAB PO ONE (23:45)
[2018-09-03] MEDS ORDERED: LACTATED RINGER'S 1,000 ML IV SCH (00:01)
[2018-09-03] MEDS: FENOFIBRATE~ORDER AWAITING ACTION SCH ×4 (00:08→23:50)
--- NOTE | 2018-09-03 00:58 | XRay Report ---
TWO VIEW CHEST CLINICAL HISTORY: Dyspnea. FINDINGS: PA and lateral chest radiographs are compared to study dated 08/01/2018. The patient is stat us post midline sternotomy and cardiac valve surgery. The heart is mildly enlarged. The pulmonary vas culature is noncongested. The lungs and pleural spaces are clear. There is no pneumothorax. The skel etal structures are osteopenic. The bony thorax appears intact. Degenerative change and hyperkyphosis are noted in the thoracic spine. Cholecystectomy clips are noted in the right upper quadrant. IMPRESSION: Mild cardiac enlargement with no active disease in the chest. Electronically signed by: Kevin Roberts M.D. 09/03/2018 12:56 AM
--- NOTE | 2018-09-03 01:13 | Ultrasound Report ---
ULTRASOUND RIGHT LOWER EXTREMITY VENOUS CLINICAL HISTORY: Right leg pain. Right groin fluid collection. COMPARISON STUDY: Ultrasound of the right groin dated 08/01/2018. TECHNIQUE: Real-time, grayscale, and color Doppler sonography of the deep veins of the right lower ex tremity was performed from the inguinal crease to the calf. Compression and augmentation were utilize d. FINDINGS: There is no sonographic evidence of deep venous thrombosis identified in the right lower ex tremity. The common femoral, superficial femoral, and popliteal veins are patent and normally salma sible. The greater saphenous vein and the profunda femoris vein at the junction with the common femor al vein are clear. The visualized calf veins are patent. There is a complex fluid collection identifi ed in the right groin which measures 5.5 x 2.1 x 3.5 cm. No internal vascularity is shown on color im aging. IMPRESSION: 1. There is no sonographic evidence of deep venous thrombosis identified in the right lower extremity . 2. There is a complex fluid collection right groin which measures up to 5.5 cm. This likely represent s a resolving hematoma, and is similar in size to the 08/01/2018 examination. No internal flow shown c olor imaging. Electronically signed by: Kevin Roberts M.D. 09/03/2018 1:10 AM
[2018-09-03] MEDS: ZOLPIDEM TARTRATE 5 MG TAB PO PRN ×2 (01:20→20:50)
[2018-09-03] MEDS: LEVOTHYROXINE SODIUM 75 MCG TABLET PO SCH (06:12)
[2018-09-03 07:30] LABS: Basophils # (auto) 0.04 K/uL (0-0.2); Basophils % (auto) 0.9 %; Eosinophils # (auto) 0.19 K/uL (0-0.5); Eosinophils % (auto) 4.3 %; Hematocrit (blood only) 33.7 % (37-47); Hemoglobin 10.5 g/dL (12.0-16.0); Lymphocytes # (auto) 1.48 K/uL (1.2-3.4); Lymphocytes % (auto) 33.6 %; Mean Corpuscular Hgb Conc 31.2 g/dL (32-36); Mean Corpuscular Volume 82.2 fL (80-100); Mean Platelet Volume 9.7 fL (7.4-10.4); Monocytes # (auto) 0.32 K/uL (0.11-0.59); Monocytes % (auto) 7.3 %; Neutrophils # (auto) 2.38 K/uL (1.4-6.5); Neutrophils % (auto) 53.9 %; Platelet Count 150 K/uL (130-400); RDW Standard Deviation 42.5 fL (36.4-46.3); White Blood Count 4.41 K/uL (4.8-10.8)
[2018-09-03 07:41] LABS: INR 1.3 (0.9-1.1); Prothrombin Time 13.5 Seconds (9.0-12.0)
[2018-09-03 07:49] LABS: BUN Creatinine Ratio 17.6 (10-20); Blood Urea Nitrogen 17 mg/dl (7-18); Calcium 8.4 mg/dl (8.5-10.1); Carbon Dioxide 28 mmol/L (21-32); Chloride 108 mmol/L (98-107); Creatinine Clr Calc Pharmacy 53.5 ml/min; Est GFR (African American) 72.7; Est GFR (Non-African American) 62.7; Glucose 88 mg/dl (70-99); Potassium 3.8 mmol/L (3.5-5.1); Sodium 140 mmol/L (136-145)
[2018-09-03 07:54] LABS: Troponin I < 0.015 ng/ml (0-0.045)
[2018-09-03] MEDS: LIDOCAINE 5% 1 PATCH TD SCH (08:54)
[2018-09-03] MEDS: FUROSEMIDE 20 MG TAB PO SCH (08:55)
[2018-09-03] MEDS: SERTRALINE HCL 100 MG TABLET PO SCH (08:55)
[2018-09-03] MEDS: PANTOprazole 40 MG TAB PO SCH (08:56)
[2018-09-03] MEDS: METOPROLOL SUCC 25MG EXT REL TAB PO SCH ×2 (08:56→20:47)
[2018-09-03] MEDS: EZETIMIBE 10 MG TABLET PO SCH (08:56)
[2018-09-03] MEDS: CLOPIDOGREL BISULFATE 75 MG TAB PO SCH (08:56)
--- NOTE | 2018-09-03 10:01 | Cardiology Consultation ---
Date of Consultation September 03, 2018 Assessment & Plan (1) Chest pain: Her chest discomfort is very atypical for coronary artery disease and I do not think it is related to that, her enzymes are negative and electric cardiogram does not show acute changes and episodes are long enough that we s hould pick it up if it was related to myocardial ischemia. She had a CAT scan to rule out pulmonary emboli (which would be very unlikely on warfarin in any case). One thing that might be worth considering is whether there could be a problem with her a sending aortic arch repair, it is possible that that would have been seen on the CAT scan done for her pulmonary emboli but that was at [facility] and I do not have the report. That might be worth considering although it seems not terribly likely. Other than that I cannot think of a cardiovascular cause. I do not think it is pericarditis. (2) History of aortic valve replacement: Her aortic valve appears to be doing well on exam, the valve sounds are crisp and there is no significant murmur other than what is expected for this valve. Her recent echo showed no abnormalities. I would not evaluate further at this time. (3) CAD in [place] artery: She does have coronary disease however her symptoms now are not compatible with progression of coronary disease and her cardiac enzymes are negative. I would not consider stress testing. History of Present Illness Reason for Consultation: Chest pain Attending Physician: Kary Tolentino MD History of Present Illness This is a very pleasant 70-year-old woman who had an aortic valve replacement and ascending aortic aneurysm repair in 2009 (mechanical valve), she also has a history of myocardial infarction and circumflex stenting, she had catheterization July 07, 2018 where the mid LAD had severe stenosis and was treated with a single drug-eluting. She was readmitted here July 18, 2018 with chest pressure lasting several hours although the symptoms were different than her prior symptoms. The troponin was negative. 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 She presents now again in transfer from [facility] for chest discomfort. Evidently she has been having chest discomfort for about 3 weeks but it has been progressive. She is on warfarin for her mechanical valve and her INR was low on presentation here. She describes the discomfort as a stabbing sensation in her back between her shoulder blades and then radiation anteriorly with a dull pressure sensation subsequently. The episodes last several hours when she gets them, is not clear whether there is some exertional component but it is not clear-cut. She feels that her treatment here on her last admission helped with the discomfort but it has now recurred. She does not have lightheadedness or dizziness or palpitations. Allergies Allergy/AdvReac Type Severity Reaction Status Date / Time Latex, Natural Rubber AdvReac Localized Unverified 07/28/18 16:06 skin reaction Sulfa (Sulfonamide AdvReac Nausea and Unverified 07/28/18 16:06 Antibiotics) vomiting Home Medications Home Medications Medication Instructions Recorded Confirmed Type aspirin 81 mg PO QAM 07/20/18 08/01/18 History ezetimibe 10 mg PO QAM 07/20/18 08/01/18 History fenofibrate micronized 67 mg PO QAM 07/20/18 08/01/18 History levothyroxine 75 mcg PO QAM 07/20/18 08/01/18 History nitroglycerin See Rx Instructions .ROUTE 07/20/18 08/01/18 History .COMPLEX PRN ropinirole 3 mg PO HS 07/20/18 08/01/18 History sertraline 100 mg PO HS 07/20/18 08/01/18 History simvastatin 40 mg PO QAM 07/20/18 08/01/18 History ticagrelor 90 mg PO BID 07/20/18 08/01/18 History warfarin 3 mg PO 2XWK 07/20/18 08/01/18 History warfarin 6 mg PO 5XWK 07/20/18 08/01/18 History ferrous sulfate 325 mg PO BID #60 tab 07/25/18 08/01/18 Rx oxycodone 5 - 10 mg PO Q4H PRN #30 tab 07/25/18 08/01/18 Rx metoprolol succinate [Toprol XL] 25 mg PO BID 07/28/18 08/01/18 History polyethylene glycol 3350 [Miralax] 17 g PO DAILY PRN 07/28/18 08/01/18 History sennosides [senna] 17.2 mg PO DAILY PRN 07/28/18 08/01/18 History Patient History Medical History Ascending aortic aneurysm CAD (coronary artery disease) Chronic anticoagulation Due to AVR Hyperlipemia Hypertension NSTEMI (non-ST elevated myocardial infarction) Restless leg syndrome Surgical History Aortic valve replaced 2009 Cholecystectomy planned History of arthroplasty of right knee History of cardiac catheterization 07/07/18 stent placed History of carpal tunnel repair History of partial hysterectomy History of tonsillectomy and adenoidectomy Hx of colonoscopy S/P excision of Gomes's neuroma Family History Brother Coronary heart disease Emphysema lung Mother Coronary heart disease Father Coronary heart disease Social History Preferred Language: Spanish Communication Ability: Effective Salvage Determiner Required: No Beliefs That Will Affect Care: None marital status: marital status details: Sara White [phone] Current Living Situation: Spouse current occupational status: other 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 No exertional symptoms, no dyspnea on exertion. No orthopnea or PND or peripheral edema. No GI complaints, no bleeding. No neurologic complaints such as TIA or stroke symptoms. Other systems negative. Physical Exam Vital Signs (Past 24 Hours): Last Vital Signs Temp 36.6 C 09/03/18 07:45 Pulse 67 09/03/18 07:45 Resp 20 09/03/18 07:45 BP 112/72 09/03/18 07:45 Pulse Ox 94 09/03/18 07:45 Physical Exam: Constitutional: Alert, cooperative and in no distress. HEENT: Unremarkable Neck: No jugular venous distention, carotid pulses are normal and equal bilaterally without bruits. Pulmonary: Clear to auscultation bilaterally. Cardiac: Regular rhythm with good prosthetic valve sounds, a soft crescendo decrescendo murmur at the base, no gallop or rub. Abdomen: Soft, nontender with normal bowel sounds. Extremities: +1 right lower extremity edema. Distal pulses intact. The right groin surgical site appears to be healing well with a lump at the lower portion of the incision. Neurologic: No focal findings. Gait is steady. Skin: No rash, ecchymoses or petechiae. Results & Data Diagnostic Findings Electrocardiogram: Her electrocardiogram shows sinus rhythm at 67 bpm with right bundle branch block. No acute changes. Telemetry: Sinus rhythm in the 60s, no significant arrhythmia
[2018-09-03] MEDS ORDERED: Heparin IV Standard *NO* Bolus IV ONE (10:18)
[2018-09-03] MEDS ORDERED: Heparin Adult STANDARD Wt-Based Dextrose 5% 25,000 units/500 mL IV SCH (11:30)
[2018-09-03 11:43] LABS: Partial Thromboplastin Ratio 0.9
[2018-09-03] MEDS ORDERED: WARFARIN SOD 3 MG TAB PO SCH (16:00)
[2018-09-03] MEDS ORDERED: WARFARIN SOD 5 MG TAB PO SCH (16:00)
--- NOTE | 2018-09-03 16:33 | Family Medicine Progress Note ---
Date of Service September 03, 2018 Assessment & Plan (1) Chest pain: 62-year-old female was transferred from [facility] on the evening of 02 September 2018 for chest pain. Chest pain, CAD - x 1 week. H/o extensive cardiac history: mechanical aortic valve replacement, ascending aortic root replacement (for an ascending aortic aneurysm), multiple cardiac stents. - Per OSH records, EKG was NSR with a rate of 72 and a known right bundle branch block. Troponin at 1535 was < 0.02. - Repeat EKG shows no change, trops neg x 3 - May treat chest pain with serial nitroglycerin if blood pressure tolerates. May try Dilaudid as needed. - Continue her home Lidoderm patch, pantoprazole, Plavix. - Cardiology consulted, appreciate recs, unlikely to be ischemia. 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 - ?related to aortic root replacement. Will await imaging from [facility] to be read by our radiologist Dyspnea - Patient notes some baseline shortness of breath over the past week. Denies any cough or known recent illness. - Per OSH records, d-dimer was positive. CT of the chest was reported as negative for acute findings. - CXR negative here. Awaiting CT read. Subtherapeutic INR - On Coumadin 3 mg daily and is managed by PCP (Dr. Lund) as well as cardiology. She denies missing any doses. - Per OSH records, INR was 1.46 at [facility]. Today: 1.3 after receiving extra 5 mg dose 09/02. Goal closer to 2.5-3.5 considering mechanical valve. - Placed on heparin drip on 09/03 as well as increased 5 mg dose of coumadin until therapeutic Right lower extremity swelling - Patient says this feels more acute on chronic. This may be related to her previous pseudoaneurysm repair in June 2018 versus some chronic venous insufficiency. She did have a positive d-dimer at OSH. - Right lower extremity ultrasound negative for DVT - Continue outpatient Lasix 20 mg daily. Anemia - At OSH, Hb 10.5. No reports or evidence of acute bleeding. Patient says she probably should be on iron as an outpatient. - Stable, monitor. Ongoing medical issues: - Hypertension, hyperlipidemia: Continue her home Zetia, fenofibrate, Zocor. - Restless leg syndrome: Continue home Requip. - Hypothyroidism: Continue home Synthroid. - Depression: Continue home Zoloft. Code status: Full no mechanical ventilation. Diet: Heart healthy DVT prophy: Coumadin/Heparin drip. PT/OT: Deferred. Disbo: Admitted to telemetry. 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 Alexis and agree with the findings and care plan. Subjective Patient denies any symptoms currently. She reports her chest/back pain has subsided but she also notes that she has not been exerting herself since admission. She is very concerned about this pain; is quite frustrated about not having answers to her symptoms. She is worried that once she exerts herself the pain will return. She reports that since her most recent cath she "just hasn't felt the same". Review of Systems All systems reviewed & are unremarkable except as noted in HPI & below Constitutional: no fever and no chills Respiratory: no cough and no dyspnea Cardiovascular: + chest pain with activity and + radiating jaw, neck or arm pain (radiating substernal pain to between shoulder blades in back); no chest pain, no dyspnea at rest, no dyspnea on exertion and no syncope Gastrointestinal: no abdominal pain, no nausea and no vomiting Musculoskeletal: + myalgia (between shoulder blades); no joint pain Physical Exam Vital Signs (Past 24 Hours): Last Vital Signs Temp 36.5 C 09/03/18 15:21 Pulse 71 09/03/18 15:21 Resp 18 09/03/18 15:21 BP 136/82 09/03/18 15:21 Pulse Ox 97 09/03/18 15:21 Constitutional: WD/WN, vitals as above + well hydrated and + obese; not ill appearing Eyes: PERRL, conjunctivae normal, anicteric sclerae (wearing glasses) ENMT: external ear and nose normal, oropharynx normal Neck: trachea midline, no thyromegaly Respiratory: normal respiratory effort, lungs clear to auscultation Cardiovascular: RRR, no murmur, no edema (mechanical valve sounds) Ext remities: + pedal edema (1+ on RLE) Skin: Hematoma and healing incision in R groin Neurologic: PERRL, EOMI, accommodation nl, no face palsy, no dysarthria Psychiatric: A+Ox3, euthymic affect Results & Data Laboratory Results 09/03/18 09/03/18 09/03/18 Range/Units 11:16 06:51 06:51 WBC (4.8-10.8) K/uL RBC (4.2-5.4) M/uL Hgb (12.0-16.0) g/dL Hct (37-47) % MCV (80-100) fL MCH (25-34) pg MCHC (32-36) g/dL RDW Std Deviation (36.4-46.3) fL RDW Coeff of Pretty (11.5-14.5) % Plt Count (130-400) K/uL MPV (7.4-10.4) fL Immature Gran % (Auto) % Neut % (Auto) % Lymph % (Auto) % Barber % (Auto) % Eos % (Auto) % Baso % (Auto) % Immature Gran # (Auto) (0.00-0.02) K/uL Neut # (Auto) (1.4-6.5) K/uL Lymph # (Auto) (1.2-3.4) K/uL Barber # (Auto) (0.11-0.59) K/uL Eos # (Auto) (0-0.5) K/uL Baso # (Auto) (0-0.2) K/uL PT 13.5 H (9.0-12.0) Seconds INR 1.3 H (0.9-1.1) APTT 25.0 (21.0-31.0) Seconds PTT Ratio 0.9 Sodium 140 (136-145) mmol/L Potassium 3.8 (3.5-5.1) mmol/L Chloride 108 H (98-107) mmol/L Carbon Dioxide 28 (21-32) mmol/L Anion Gap 4.0 (3-11) BUN 17 (7-18) mg/dl Creatinine 0.98 (0.6-1.2) mg/dl Est Cr Clr Drug Dosing 53.5 ml/min Est GFR ( Amer) 72.7 Est GFR (Non-Af Amer) 62.7 BUN/Creatinine Ratio 17.6 (10-20) Glucose 88 (70-99) mg/dl Calcium 8.4 L (8.5-10.1) mg/dl Troponin I < 0.015 (0-0.045) ng/ml 09/03/18 09/02/18 Range/Units 06:51 23:40 WBC 4.41 L (4.8-10.8) K/uL RBC 4.10 L (4.2-5.4) M/uL Hgb 10.5 L (12.0-16.0) g/dL Hct 33.7 L (37-47) % MCV 82.2 (80-100) fL MCH 25.6 (25-34) pg MCHC 31.2 L (32-36) g/dL RDW Std Deviation 42.5 (36.4-46.3) fL RDW Coeff of Pretty 14.0 (11.5-14.5) % Plt Count 150 (130-400) K/uL MPV 9.7 (7.4-10.4) fL Immature Gran % (Auto) 0.0 % Neut % (Auto) 53.9 % Lymph % (Auto) 33.6 % Barber % (Auto) 7.3 % Eos % (Auto) 4.3 % Baso % (Auto) 0.9 % Immature Gran # (Auto) 0.00 (0.00-0.02) K/uL Neut # (Auto) 2.38 (1.4-6.5) K/uL Lymph # (Auto) 1.48 (1.2-3.4) K/uL Barber # (Auto) 0.32 (0.11-0.59) K/uL Eos # (Auto) 0.19 (0-0.5) K/uL Baso # (Auto) 0.04 (0-0.2) K/uL PT (9.0-12.0) Seconds INR (0.9-1.1) APTT (21.0-31.0) Seconds PTT Ratio Sodium (136-145) mmol/L Potassium (3.5-5.1) mmol/L Chloride (98-107) mmol/L Carbon Dioxide (21-32) mmol/L Anion Gap (3-11) BUN (7-18) mg/dl Creatinine (0.6-1.2) mg/dl Est Cr Clr Drug Dosing ml/min Est GFR ( Amer) Est GFR (Non-Af Amer) BUN/Creatinine Ratio (10-20) Glucose (70-99) mg/dl Calcium (8.5-10.1) mg/dl Troponin I < 0.015 (0-0.045) ng/ml Medications Administered Current Inpatient Medications Acetaminophen (Tylenol) 650 mg PO Q4H PRN PRN Reason: Pain or Fever Stop: 10/02/18 23:21 Last Admin: 09/03/18 09:00 Dose: 650 mg Documented by: Clopidogrel Bisulfate (Plavix) 75 mg PO [facility] Stop: 10/03/18 08:59 Last Admin: 09/03/18 08:56 Dose: 75 mg Documented by: Ezetimibe (Zetia) 10 mg PO [facility] Stop: 10/03/18 08:59 Last Admin: 09/03/18 08:56 Dose: 10 mg Documented by: Furosemide (Lasix) 20 mg PO [facility] Stop: 10/03/18 08:59 Last Admin: 09/03/18 08:55 Dose: 20 mg Documented by: Hydromorphone HCl (Dilaudid) 0.5 mg IV Q4H PRN PRN Reason: Chest Pain Stop: 09/16/18 23:21 Last Admin: 09/03/18 01:16 Dose: 0.5 mg Documented by: Heparin Sodium/Dextrose (Heparin Sodium/Dextrose) 25,000 units in 500 mls @ 20 mls/hr IV .Q24H [facility]; Protocol Stop: 10/03/18 11:29 Last Admin: 09/03/18 12:33 Dose: 1,000 units/hr, 20 mls/hr Documented by: [facility]ine [facility]) [facility]: 10/03/18 06:29 Last Admin: 09/03/18 06:12 Dose: 75 mcg Documented by: Lidocaine (Lidoderm 5%) 1 [facility] [place] Stop: 10/03/18 08:59 Last Admin: 09/03/18 08:54 Dose: 1 patch Documented by: Metoprolol Succinate (Toprol Xl) 25 mg PO BID [facility] Stop: 10/03/18 08:59 Last Admin: 09/03/18 08:56 Dose: 25 mg Documented by: Miscellaneous (Order Awaiting Action) 1 ea N/A QS [facility] Stop: 10/03/18 00:00 Last Admin: 09/03/18 12:34 Dose: Not Given Documented by: Miscellaneous (Remove Lidoderm Patch) 1 ea N/A DAILY@2100 [facility] Stop: 10/03/18 20:59 Nitroglycerin (Nitrostat) 0.4 mg SL UD PRN PRN Reason: Chest Pain Stop: 10/02/18 23:21 Ondansetron HCl (Zofran) 4 mg IV Q6H PRN PRN Reason: Nausea Stop: 10/02/18 23:21 Pantoprazole Sodium (Protonix) 40 mg PO [facility] Stop: 10/03/18 08:59 Last Admin: 09/03/18 08:56 Dose: 40 mg Documented by: Ropinirole HCl (Requip) 3 mg PO HS [facility] Stop: 10/03/18 20:59 Sertraline HCl (Zoloft) 100 mg PO [facility] Stop: 10/03/18 08:59 Last Admin: 09/03/18 08:55 Dose: 100 mg Documented by: Simvastatin (Zocor) 40 mg PO PM [facility] Stop: 10/03/18 20:59 Warfarin Sodium (Coumadin) 5 mg PO DAILY@1600 [facility] Stop: 10/03/18 15:59 Last Admin: 09/03/18 17:12 Dose: 5 mg Documented by: Zolpidem Tartrate (Ambien) 5 mg PO HS PRN PRN Reason: Sleep Stop: 10/02/18 23:11 Last Admin: 09/03/18 01:20 Dose: 5 mg Documented by: Resident Activity Tracking Resident Involvement: Resident Care Provided Care Provided: Adult Hospital Medicine (1) Hyperlipidemia Hyperlipidemia type: unspecified Qualified Code(s): E78.5 - Hyperlipidemia, unspecified
[2018-09-03 18:12] LABS: Partial Thromboplastin Ratio 1.2; Partial Thromboplastin Time 32.9 Seconds (21.0-31.0)
[2018-09-03] MEDS ORDERED: HEPARIN IV BOLUS 5,000 UNITS in SYRINGE 0 ML IV ONE (19:30)
[2018-09-03] MEDS ORDERED: SIMVASTATIN 40 MG TAB PO SCH (21:00)
[2018-09-03] MEDS ORDERED: ROPINIROLE HCL 1 MG TABLET PO SCH (21:00)
[2018-09-04 01:17] LABS: Partial Thromboplastin Ratio > 5.1
[2018-09-04 01:26] LABS: Partial Thromboplastin Time > 139.0 Seconds (21.0-31.0)
[2018-09-04 02:16] LABS: Basophils # (auto) 0.04 K/uL (0-0.2); Basophils % (auto) 0.7 %; Eosinophils # (auto) 0.26 K/uL (0-0.5); Eosinophils % (auto) 4.9 %; Hemoglobin 10.8 g/dL (12.0-16.0); Lymphocytes # (auto) 1.76 K/uL (1.2-3.4); Lymphocytes % (auto) 32.8 %; Mean Corpuscular Hgb Conc 31.8 g/dL (32-36); Mean Platelet Volume 9.3 fL (7.4-10.4); Monocytes # (auto) 0.39 K/uL (0.11-0.59); Monocytes % (auto) 7.3 %; Neutrophils # (auto) 2.91 K/uL (1.4-6.5); Neutrophils % (auto) 54.3 %; Platelet Count 146 K/uL (130-400); RDW Coefficient of Variation 13.8 % (11.5-14.5); RDW Standard Deviation 40.9 fL (36.4-46.3); White Blood Count 5.36 K/uL (4.8-10.8)
[2018-09-04 02:36] LABS: BUN Creatinine Ratio 14.3 (10-20); Calcium 8.2 mg/dl (8.5-10.1); Creatinine Clr Calc Pharmacy 43.4 ml/min; Est GFR (African American) 56.3; Est GFR (Non-African American) 48.6; Potassium 3.6 mmol/L (3.5-5.1)
[2018-09-04 02:40] LABS: INR 1.4 (0.9-1.1); Partial Thromboplastin Ratio 3.9; Prothrombin Time 14.4 Seconds (9.0-12.0)
[2018-09-04 02:47] LABS: Partial Thromboplastin Time 106.4 Seconds (21.0-31.0)
[2018-09-04] MEDS: LEVOTHYROXINE SODIUM 75 MCG TABLET PO SCH (06:24)
[2018-09-04] MEDS: FENOFIBRATE~ORDER AWAITING ACTION SCH (07:59)
[2018-09-04] MEDS: PANTOprazole 40 MG TAB PO SCH (08:00)
[2018-09-04] MEDS: METOPROLOL SUCC 25MG EXT REL TAB PO SCH (08:00)
[2018-09-04] MEDS: FUROSEMIDE 20 MG TAB PO SCH (08:00)
[2018-09-04] MEDS: SERTRALINE HCL 100 MG TABLET PO SCH (08:00)
[2018-09-04] MEDS: LIDOCAINE 5% 1 PATCH TD SCH (08:00)
[2018-09-04] MEDS: CLOPIDOGREL BISULFATE 75 MG TAB PO SCH (08:00)
[2018-09-04] MEDS: EZETIMIBE 10 MG TABLET PO SCH (08:01)
[2018-09-04] MEDS ORDERED: ENOXAPARIN INJ 40 MG/0.4 ML SYR SQ ONE (10:11)
[2018-09-04 10:13] LABS: Partial Thromboplastin Ratio 2.5
--- NOTE | 2018-09-04 10:48 | Discharge Summary ---
Date of Service September 04, 2018 Admission HPI Per Admitting Provider 62-year-old female was transferred from [facility] on the evening of 02 September 2018 for chest pain symptoms. Patient states that over the past three weeks or so she has been getting a stabbing pain between her shoulder blades that radiates towards the front of her chest. She occasionally gets some heaviness in her chest as well. She says she was admitted to [facility] for this and was ultimately treated with a lidocaine patch, steroids, and "stomach medications" which seemed to help. On arrival here, patient notes the following: - Says over the last week she continues to have some sharp pain in her back. - Says that she feels more easily short of breath, including at rest. -Says that her right leg seems more swollen, particularly after long day of walking. She continues to have some swelling in her right groin after her pseudoaneurysm repair. She also gets some bilateral calf pain with ambulation. - Says that she contacted her primary care provider yesterday and was advised to go to the emergency department. She decided not to, instead taking a single home a nitroglycerin dose which helped her chest symptoms. - She says she contacted her primary care provider again today and was again advised to go to the emergency department, so she did so. She says that there the Dilaudid she was given improved her symptoms but did not provide complete relief. - She does note some ongoing depressive symptoms, primarily dealing with multiple medicines that she has to take. She says that she did speak with someone about this at the other hospital. -At present, she denies any nausea, vomiting, diarrhea, recent fevers or chills, radiation of her symptoms out of her chest, or other acute concerns. Past medical history includes hypertension, hyperlipidemia, CAD with stents, ascending aortic aneurysm, right lower extremity pseudoaneurysm, restless leg syndrome, hypothyroidism, depression. Past surgical history includes replacement of the aortic root and ascending aorta in December 2009 (in [place]), per patient two stents placed in 2009, PCI to mid LAD in June 2018, right lower extremity pseudoaneurysm (s/p PCI) repair in June 2018, partial hysterectomy, right Gomes's neuroma removal, bilateral carpal tunnel release, tonsillectomy, cholecystectomy, right total knee replacement. Social history includes smoking for 20-25 years (then quit for 20 years, then restarted for 18 months, then quit again in June 2018). Denies alcohol use. Lives at home with family. Principal Diagnosis Subtherapeutic INR Discharge Exam Constitutional WD/WN, vitals as above + well hydrated and + obese; not ill appearing Eyes PERRL, conjunctivae normal, anicteric sclerae (wearing glasses) ENMT external ear and nose normal, oropharynx normal Neck trachea midline, no thyromegaly Respiratory normal respiratory effort, lungs clear to auscultation Cardiovascular RRR, no murmur, no edema (mechanical valve sounds) Extremities: + pedal edema (1+ on RLE) Gastrointestinal (Abdomen) normal bowel sounds, soft, nontender, no hepatosplenomegaly Evidence of resolving hematoma/aneurysm repair in R groin Neurologic PERRL, EOMI, accommodation nl, no face palsy, no dysarthria Psychiatric A+Ox3, euthymic affect Discharge Data Allergies Allergy/AdvReac Type Severity Reaction Status Date / Time Latex, Natural Rubber AdvReac Localized Unverified 07/28/18 16:06 skin reaction Sulfa (Sulfonamide AdvReac Nausea and Unverified 07/28/18 16:06 Antibiotics) vomiting Consultations 09/02/18 23:22 Consult Cardiology Routine 09/03/18 18:17 HIM [Consult Health Information Management] Routine Ordered Studies 09/02/18 23:21 US venous doppler LE RT Routine Hospital Course (1) Chest pain: 62-year-old female was transferred from [facility] on the evening of 02 September 2018 for chest pain. Chest pain, CAD - x 1 week. H/o extensive cardiac history: mechanical aortic valve replacement, ascending aortic root replacement (for AAA), multiple cardiac stents. - Per OSH records, EKG was NSR with a rate of 72 and a known right bundle branch block. Troponin at 1535 was < 0.02. - Repeat EKG shows no change, trops neg x 3 - CT for PE images from [facility] reviewed; graft has good placement; unlikely to be related to graft placement. - Chest pain seems to resolve with rest, lidoderm. Pt felt nitroglycerin and dilaudid helped on admission; did not require either during stay. - CP has some component of anxiety/stress. She noted that even talking about her frustrations would trigger her symptoms - Recommend discussing PT for any MSK issues that may be involved, working through anxiety and frustrations. - Advised to Continue her home Lidoderm patch, pantoprazole, Plavix. - Cardiology consulted, unlikely to be ischemia. Her regular content strategist is Dr. Adames. Subtherapeutic INR in setting of mechanical aortic valve - Goal 2-3 - On Coumadin 3 mg daily and is managed by PCP (Dr. Lund) as well as cardiology. She denies missing any doses. - Per OSH records, INR was 1.46 at [facility] 09/02. 09/03, Was 1.3 after receiving extra 5 mg dose evening prior. - Placed on heparin drip on 09/03 and received 5mg warfarin. - On day of discharge, bridged her with lovenox 1mg/kg, one dose given in hospital, given 2 extra doses (one for PM dose and one for 09/05 AM dose if INR <2). - Directed pt to take 9 mg coumadin 09/04. Pt to measure INR on 09/05 and report to PCP. Dyspnea--RESOLVED - Patient notes some baseline shortness of breath over the past week. Denies any cough or known recent illness. - Per OSH records, d-dimer was positive. CT of the chest was reported as negative for acute findings. - CXR negative here. CT reviewed, negative for PE Right lower extremity swelling - Patient says this feels more acute on chronic. This may be related to her previous pseudoaneurysm repair in June 2018 versus some chronic venous insufficiency. She did have a positive d-dimer at OSH. - Right lower extremity ultrasound negative for DVT - Continue outpatient Lasix 20 mg daily. Anemia - At OSH, Hb 10.5. No reports or evidence of acute bleeding. Patient says she probably should be on iron as an outpatient. - Follow as outpatient Ongoing medical issues: - Hypertension, hyperlipidemia: Continue her home Zetia, fenofibrate, Zocor. - Restless leg syndrome: Continue home Requip. - Hypothyroidism: Continue home Synthroid. - Depression: Continue home Zoloft. Code status: Full no mechanical ventilation. (2) CAD in [place] artery: (3) Shortness of breath: (4) manager long term care current use of anticoagulants with INR goal of 2.0-3.0: (5) Swelling of right lower extremity: (6) Anemia: (7) Hypertension: (8) Hyperlipidemia: (9) Restless leg syndrome: (10) Hypothyroidism (acquired): (11) Depression: Total Time Total Time Spent Total Time Spent (In Minutes): >30 Discharge Plan Discharge Items Patient Disposition: Home - Self-Care Reason For Visit: CHEST PAIN, R/O FL Discharge Diagnosis: Atypical chest pain Discharge Goals: Decrease discomfort, Improve function, Increase independence and Learn about illness Activity: Per 'Additional Instructions' section Non-emergency contact: Primary Care Provider and Ux Researcher Call non-emergency contact if: you have any medication questions, your symptoms worsen, your pain is not controlled and your pain is unusual for you Follow-up/Referrals: Vasile Lund [Primary Care Provider] - Diet: Heart Healthy Add Provider Instructions: During this admission you were evaluated for atypical chest pain. Fortunately, we have ruled out issues with your stents, your graft, and have ruled out an acute heart attack. We understand this atypical pain is frustrating for you and other causes for the pain (muscular, etc) can be discussed with your primary care provider. Dr. Lund has been made aware of the situation and will touch base with your content strategist tomorrow. Continue to use your lidoderm patches. Continue with all of your other home meds as prescribed. Another issue was brought up with your INR level, which is lower than it should be despite extra warfarin. Please take 9 mg of warfarin today, and you will need to check your INR tomorrow morning and let Dr. Lund's office aware. Instead of the heparin, we will be giving you a lovenox injection again before you leave to tie you over to prevent clotting. You will be given 2 extra doses of the lovenox, one that you will need to take this evening before bed, and one tomorrow morning if your INR is still <2. This is only until tomorrow when Dr. Lund's office can let you know how much warfarin to take. You may need to go back to checking your INR with Dr. Lund twice weekly. Prescriptions: Continued ropinirole 3 mg tablet 3 mg PO HS RF: 0 sertraline 100 mg tablet 100 mg PO HS RF: 0 fenofibrate micronized 67 mg capsule 67 mg PO QAM RF: 0 simvastatin 40 mg tablet 40 mg PO QAM RF: 0 levothyroxine 75 mcg tablet 75 mcg PO QAM RF: 0 warfarin 6 mg tablet 6 mg PO 5XWK RF: 0 nitroglycerin 0.4 mg tablet, sublingual See Rx Instructions .ROUTE .COMPLEX PRN (Reason: Chest Pain) RF: 0 ezetimibe 10 mg tablet 10 mg PO QAM RF: 0 ticagrelor 90 mg tablet 90 mg PO BID RF: 0 aspirin 81 mg Tablet,Delayed Release (Dr/Ec) 81 mg PO QAM RF: 0 warfarin 3 mg Tablet 3 mg PO 2XWK RF: 0 oxycodone 5 mg Tablet 5 - 10 mg PO Q4H PRN (Reason: pain) Qty: 30 RF: 0 ferrous sulfate 325 mg (65 mg iron) tablet 325 mg PO BID Qty: 60 RF: 1 metoprolol succinate [Toprol XL] 25 mg tablet extended release 24 hr 25 mg PO BID RF: 0 sennosides [senna] 8.6 mg tablet 17.2 mg PO DAILY PRN (Reason: Constipation) RF: 0 polyethylene glycol 3350 [Miralax] 17 gram powder in packet 17 g PO DAILY PRN (Reason: Constipation) RF: 0 Stand-Alone Forms: [facility] Discharge Orders: Discharge Order (Routine); Ordered 09/04/18 Ordered By: Sara Alexis Admission Data Admit Date/Time: 09/02/18 23:22 Attending Provider: Kary Tolentino Admit Provider: Joey Estrada Primary Care Provider: Vasile Lund Other Providers: Grady Valera ; Joey Estrada Service: Telemetry Medical Other Interventions: Discharge Summary Assessment (RN) Last Done: 09/04/18 11:43 DC Date/Time DO NOT enter until pt leaves facility: 09/04/18 15:26 Supervising Physician Co-Signing Physician Notes Resident Physician Supervision Note: I independently interviewed and examined the patient and verified the vann histor y and physical, reviewed labs and image studies, discussed the case with the resident Dr. Alexis and agree with the findings and care plan. Time spent in discharge 35 min Resident Activity Tracking Resident Involvement: Resident Care Provided Care Provided: Adult Hospital Medicine
[2018-09-04] MEDS ORDERED: ENOXAPARIN 80 MG/0.8 ML SYR SQ SCH ×2 (11:15)
[2018-09-04] MEDS ORDERED: WARFARIN SOD 4 MG TAB PO ONE (16:00)
== END 2018-09-04 15:26 | disposition home or self-care (01) | DRG 313 ==
LOC: 2W → SUATTDRO 23:22

== ENCOUNTER 2019-01-24 05:09 | Observation (INO) ==
--- NOTE | 2019-01-04 13:54 | PAT Medication Instructions ---
Medication Instructions Date of Service January 04, 2019 Home Medications Medication Instructions Recorded warfarin 1 mg tablet 1 mg PO DAILY #90 tab 01/03/19 warfarin 4 mg tablet 4 mg PO DAILY #30 tab 01/03/19 atorvastatin 40 mg tablet 40 mg PO QAM #90 tab 01/04/19 clopidogrel 75 mg tablet 75 mg PO QAM #30 tab 01/04/19 isosorbide mononitrate ER 30 mg 30 mg PO QAM #90 tab 01/04/19 tablet,extended release 24 hr ezetimibe 10 mg PO QAM fenofibrate micronized 67 mg PO QAM levothyroxine 75 mcg PO QAM nitroglycerin See Rx Instructions .ROUTE .COMPLEX PRN ropinirole 3 mg PO HS warfarin 4 mg PO DAILY metoprolol succinate ER 25 mg tablet,extended release 24 hr 50 mg PO QAM warfarin 1 mg tablet 1 mg PO DAILY warfarin 4 mg tablet 4 mg PO DAILY atorvastatin 40 mg tablet 40 mg PO QAM clopidogrel 75 mg tablet 75 mg PO QAM isosorbide mononitrate ER 30 mg tablet,extended release 24 hr 30 mg PO QAM Continue as directed nitroglycerin See Rx Instructions .ROUTE .COMPLEX PRN (if needed) ASK your prescriber and surgeon warfarin 4 mg PO DAILY warfarin 1 mg tablet 1 mg PO DAILY warfarin 4 mg tablet 4 mg PO DAILY clopidogrel 75 mg tablet 75 mg PO QAM STOP taking 48 hours before surgery fenofibrate micronized 67 mg PO QAM STOP taking 24 hours before surgery ropinirole 3 mg PO HS Take morning of surgery With a small sip of water, OTHERWISE NOTHING TO EAT OR DRINK AFTER MIDNIGHT: ezetimibe 10 mg PO QAM levothyroxine 75 mcg PO QAM metoprolol succinate ER 25 mg tablet,extended release 24 hr 50 mg PO QAM atorvastatin 40 mg tablet 40 mg PO QAM isosorbide mononitrate ER 30 mg tablet,extended release 24 hr 30 mg PO QAM Other Notes If you have any questions please call us at [phone] or [phone] or [phone] or [phone]
--- NOTE | 2019-01-05 10:07 | Anesthesiology Consultation ---
Date of Service January 05, 2019 Assessment & Plan (1) Encounter for pre-operative examination: - S/P right femoral pseudoaneurysm repair: 07/21/18: Grade view 3 with cricoid pressure, MAC#3, ETT 7 at [facility] - Cardio: 12/22/18: "Patient with know history of coronary artery disease (post VT/stenting to circumflex, PCI to mid LAD (07/07/18*) in the setting of abnormal stress test 06/2018) who presents for preoperative cardiac evaluation prior to right shoulder surgery on 01/24/19. Patient remains physically active without anginal type symptoms. On exam she appears well perfused without signs of heart failure or significant peripheral vascular disease. Feel she is low risk to proceed with shoulder surgery without any additional cardiac testing/intervention." Recent SP: Case reviewed with Dr. Magallanes; okay to proceed with surgery as scheduled. - Plavix/Warfarin instructions: Per cardio, patient to stop Plavix 7 days prior to surgery but start ASA 81mg while Plavix on hold (surgeon made aware). Warfarin instructions per surgeon/cardio. - Check coags AM DOS Chart Review Chart Review: Acceptable Risk for Surgery and Patient seen in Pre Admission Testing Teaching & Discussion Pre-Anesthesia Teaching/Discussion Notes: Instructed NPO after midnight before surgery,except medications with 15 cc of water. Medication instructions provided according to the PAT guidelines. History Surgery Operation Date: 01/24/19 07:00 Proposed Procedures p Right Shoulder Scope, Rotator Cuff Labral Repair versus Debridement, Distal Clavicle Excision, Bicep Tenotomy versus Tenodesis - Bob Ava Torres MD Height/Weight Height: 4 ft 11.5 in Weight: 73.2 kg Allergies Allergy/AdvReac Type Severity Reaction Status Date / Time latex Allergy Verified 01/03/19 14:19 Sulfa (Sulfonamide AdvReac Nausea and Unverified 12/22/18 12:32 Antibiotics) vomiting Medications Home Medications Medication Instructions Recorded Confirmed Last Taken ezetimibe 10 mg PO QAM 07/20/18 12/27/18 07/28/18 fenofibrate micronized 67 mg PO QAM 07/20/18 12/27/18 07/28/18 levothyroxine 75 mcg PO QAM 07/20/18 12/27/18 07/28/18 nitroglycerin See Rx Instructions .ROUTE 07/20/18 12/27/18 Unknown .COMPLEX PRN ropinirole 3 mg PO HS 07/20/18 12/27/18 07/27/18 warfarin 4 mg PO DAILY 07/20/18 12/27/18 07/31/18 metoprolol succinate ER 25 mg 50 mg PO QAM tab 12/22/18 12/27/18 Unknown tablet,extended release 24 hr warfarin 1 mg tablet 1 mg PO DAILY #90 tab 01/03/19 Unknown warfarin 4 mg tablet 4 mg PO DAILY #30 tab 01/03/19 Unknown atorvastatin 40 mg tablet 40 mg PO QAM #90 tab 01/04/19 Unknown clopidogrel 75 mg tablet 75 mg PO QAM #30 tab 01/04/19 Unknown isosorbide mononitrate ER 30 mg 30 mg PO QAM #90 tab 01/04/19 Unknown tablet,extended release 24 hr Past Medical History Medical History Anemia chronic History of aortic valve disease 2/ bicuspid AV s/p mechanical AVR (2009)- on warfarin 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: Grade view 3 with cricoid pressure, MAC#3, ETT 7 at [facility] History of recent steroid use right knee cortisone injection 01/04/19 with ortho* CAD (coronary artery disease) 2009= stents x 2 07/07/2018= PCI to LAD s/p abnormal stress test* Hx of myocardial infarction x4 Hyperlipemia Hypertension Hypothyroidism Osteoarthritis Restless leg syndrome Rotator cuff tear, right Exercise / Class Metabolic Activity II 4-5 Yardwork/Stairs/Walk up hill Past Family History Family History Brother Coronary heart disease Emphysema lung Mother Coronary heart disease Father Coronary heart disease Past Surgical History Surgical History History of arthroplasty of right knee History of carpal tunnel repair BOTH WITH LEFT X2 History of partial hysterectomy History of tonsillectomy and adenoidectomy Hx of aortic aneurysm repair + AVR (2009) Hx of cardiac catheterization 2009= stents x 2 07/07/2018= PCI to LAD Hx of cholecystectomy Hx of colonoscopy S/P excision of Gomes's neuroma Past Anesthesia History No Hx of Anesthesia Complications and No Family Hx of Anesthesia Complications History of PONV No Hx of PONV and No Hx of Motion Sickness Social History Smoking Status: Former smoker tobacco type: cigarettes Do You Dip or Chew Tobacco: No Smoking End Date: Quit 06/2018; hx intermittent use x 20 years Hx Alcohol Use: Yes Alcohol type: hard liquor alcohol intake frequency: holidays/special occasions only Hx Substance Use: No substance use type: does not use Review of Systems Occasional reflux. Patient denies chest pain, shortness of breath, dyspnea on exertion, cough, wheezing, palpitations. Physical Exam Vital Signs VITALS BP 129/77 P 774 TEMP 98.1 SP02 98%RA RESP 16 PHYSICAL Full neck and c-spine range of motion. Full TMJ range of motion. TMD 3 finger breaths Mallampati Score 2 Dentition: intact Lungs: clear throughout to auscultation Cardiac: regular rate and rhythm, II/ systolic murmur with click noted Spine: normal Carotid arteries: negative bruit Extremities: no edema Short neck Testing Laboratory Results 01/05/19 10:46 01/05/19 10:46 PT 19.4 Seconds (9.0-12.0) H 01/05/19 10:46 INR 2.0 (0.9-1.1) H 01/05/19 10:46 APTT 26.7 Seconds (21.0-31.0) 01/05/19 10:46 Electrocardiogram Date: 09/03/18 NSR at 67bpm. RBBB. No significant change compared to 07/2018 EKG per cardio. *Poor data quality* Chest X-Ray Date: 09/02/18 The patient is status post midline sternotomy and cardiac valve surgery. The heart is mildly enlarged. The pulmonary vasculature is noncongested. The lungs and pleural spaces are clear. There is no pneumothorax. The skeletal structures are osteopenic. The bony thorax appears intact. Degenerative change and hyperkyphosis are noted in the thoracic spine. Cholecystectomy clips are noted in the right upper quadrant. Echocardiogram Date: 07/04/18 EF 55%. Grade I DD. Mild MR. Moderate MR. Physiologic DC. Stress Test Date: 07/04/18 Type: nuclear Medium sized, mild reversible inferolateral defect suggestive of ischemia. No evidence of myocardial infarction. LVEF 59%. *Subsequent cardiac cath/PCI to LAD* Cardiac Catheterization Date: 07/07/18 Single vessel obstructive CAD of LAD (s/p PCI with SP to LAD). Patent stents in the LCX artery. Normal mechanical aortic valve function. Normal right heart cath pressures.
[2019-01-05 12:07] LABS: Hemoglobin 11.4 g/dL (12.0-16.0); Immature Granulocytes # (auto) 0.01 K/uL (0.00-0.02); Immature Granulocytes % (auto) 0.1 %; Lymphocytes # (auto) 0.97 K/uL (1.2-3.4); Mean Corpuscular Hemoglobin 24.6 pg (25-34); Mean Corpuscular Hgb Conc 31.7 g/dL (32-36); Mean Corpuscular Volume 77.6 fL (80-100); Mean Platelet Volume 11.1 fL (7.4-10.4); Monocytes # (auto) 0.58 K/uL (0.11-0.59); Neutrophils # (auto) 8.18 K/uL (1.4-6.5); Neutrophils % (auto) 83.9 %; Platelet Count 190 K/uL (130-400); RDW Standard Deviation 42.4 fL (36.4-46.3); Red Blood Count 4.64 M/uL (4.2-5.4); White Blood Count 9.74 K/uL (4.8-10.8)
[2019-01-05 12:16] LABS: BUN Creatinine Ratio 18.6 (10-20); Calcium 8.9 mg/dl (8.5-10.1); Creatinine Clr Calc Pharmacy 45.3 ml/min; Est GFR (African American) 59.5; Est GFR (Non-African American) 51.3; Potassium 3.6 mmol/L (3.5-5.1)
[2019-01-05 12:24] LABS: Partial Thromboplastin Time 26.7 Seconds (21.0-31.0); Prothrombin Time 19.4 Seconds (9.0-12.0)
[2019-01-24] MEDS ORDERED: CEFAZOLIN 1000MG 1,000 MG/7.5 ML SYR IV SCH (06:00)
[2019-01-24] MEDS ORDERED: SODIUM CHLORIDE 0.9% 1000ML 1,000 ML IV SCH (06:00)
[2019-01-24] MEDS ORDERED: LR 15ML/HR IV SCH (06:00)
[2019-01-24 06:17] LABS: Partial Thromboplastin Time 27.6 Seconds (21.0-31.0); Prothrombin Time 10.3 Seconds (9.0-12.0)
[2019-01-24] MEDS ORDERED: BUPIVACAINE/EPINEPHRINE 0.25% 1:200,000 30 ML VIAL ONE (06:31)
[2019-01-24] MEDS ORDERED: DEXAMETHASONE SOD INJ 4 MG/ML VIAL ONE ×2 (06:31→08:02)
--- NOTE | 2019-01-24 06:32 | History & Physical Bridge Note ---
Date of Service January 24, 2019 History & Physical Bridge Note I have examined the patient, reviewed the History & Physical and in the interval since the performance of the History & Physical I have noted the following changes of clinical significance: recent right leg vein occulsion.
[2019-01-24] MEDS ORDERED: BUPIVACAINE 0.5 % 5 MG/1 ML MPF 30ML VIAL ONE (06:36)
[2019-01-24] MEDS ORDERED: LIDOCAINE/EPINEPHRINE 1% 20 ML VIAL ONE (06:37)
[2019-01-24] MEDS ORDERED: SODIUM CHLORIDE 0.9% PF 50 ML VIAL ONE (06:37)
[2019-01-24] MEDS ORDERED: EpINEphrine HCL INJ 1 MG/ML 1ML SYRINGE ONE ×3 (06:38→09:25)
[2019-01-24] MEDS ORDERED: fentaNYL citrate 100 MCG/2 ML VIAL ONE ×4 (06:41→11:21)
[2019-01-24] MEDS ORDERED: PROPOFOL IV EMULSION 10 MG/ML 20 ML VIAL IV ONE (06:41)
[2019-01-24] MEDS ORDERED: ONDANSETRON INJ 2 MG/ML 2 ML VIAL ONE (06:41)
[2019-01-24] MEDS ORDERED: MIDAZOLAM HCL 1 MG/ML 2ML VIAL ONE (06:41)
[2019-01-24] MEDS ORDERED: LIDOCAINE HCL 2% 2 ML VIAL/AMP(20MG/ML) INFIL ONE (06:41)
[2019-01-24] MEDS ORDERED: ROCURONIUM BROMIDE 10 MG/ML 5 ML VIAL ONE (06:41)
[2019-01-24] MEDS ORDERED: PHENYLEPHRINE HCL 10 MG/ML VIAL ONE (07:53)
[2019-01-24] MEDS ORDERED: ePHEDrine sulfate 50 MG/ML SYR ONE (07:53)
--- NOTE | 2019-01-24 09:58 | Post Operative Brief Note ---
Immediate Post Op Note v1 Date of Surgery January 24, 2019 Pre & Post Diagnosis Operation Date: 01/24/19 07:00 Pre-Op Diagnosis: RIGHT SHOULDER ROTATOR CUFF TEAR, AC JOINT ARTHRITIS Post-Op Diagnosis: RIGHT SHOULDER ROTATOR CUFF TEAR, AC JOINT ARTHRITIS Procedure Operation Date: 01/24/19 07:00 Actual Procedures p Right Shoulder Arthroscopy, Rotator Cuff Repair, Distal Clavicle Excision, Bicep Tenotomy(Right) - Bob Torres MD Surgeon Bob Torres MD Concrete Hopper Operator Martínez La MD Estimated Blood Loss 5 Findings Consistent with Post-Op Diagnosis Fluids 1100 cc Anesthesia Type General Regional Complications none
--- NOTE | 2019-01-24 09:58 | Operative Report ---
Post Operative Report Pre & Post Diagnosis Operation Date: 01/24/19 07:00 Pre-Op Diagnosis: RIGHT SHOULDER ROTATOR CUFF TEAR, LONG HEAD OF BICEPS TENDONOSIS, IMPINGEMENT, AC JOINT ARTHRITIS Post-Op Diagnosis: RIGHT SHOULDER ROTATOR CUFF TEAR, LONG HEAD OF BICEPS TENDONOSIS, IMPINGEMENT, AC JOINT ARTHRITIS Procedure Operation Date: 01/24/19 07:00 Actual Procedures p Right Shoulder Arthroscopy, Rotator Cuff Repair, Distal Clavicle Excision, Bicep Tenotomy, Subacromial decompression (Right) - Bob Torres MD Surgeon Bob Torres MD Casino Cashier Martínez La MD Estimated Blood Loss 5 Findings See Below The right shoulder was then examined under anesthesia and it exhibited: Forward flexion and abduction to 165; external rotation 90; internal rotation 50. There was no noted instability. Posterior and anterior translation was 1+ and they had no sulcus sign. The diagnostic arthroscopy commenced with the following findings: 1. The biceps anchor was intact. 2. The anterior labrum was intact. 3. The inferior labrum was intact. 4. The inferior pouch showed no loose bodies. 5. The posterior labrum was intact. 6. The articular surface of the glenoid was Outerbridge type I changes. 7. The articular surface of humeral head was Outerbridge type I changes. 8. The long Head of the Biceps had significant tendinosis involving greater than 50% of the tendon as it inserted to the superior labrum. 9. The Subscapularis tendon had some fraying at the superior margin. 10. The Supraspinatus tendon had some minimal fraying on the articular side, there was a small high-grade 80% partial bursal sided tear. 11. The Infraspinatus and Teres Minor were intact. 12. The Subacromial space showed bursitis, evidence of impingement, and the small high-grade 80% partial supraspinatus tendon tear. There was a noted bony spur from the acromion and degenerative changes of the AC joint. Fluids 1100 cc Specimens n/a Drains n/a Anesthesia Type General Regional Complications none Indications This is a pleasant 63-year-old female who has been having long-standing right shoulder pain that has failed conservative management. They have MRI and clinical findings suggestive of right supraspinatus tendon tear, biceps tendinosis, and AC joint arthritis. After a lengthy discussion regarding their options of conservative versus operative management, they have elected to proceed with surgery. The risks of surgery were discussed and include but not limited to: Infection, bleeding, nerve damage, continued pain, progression of arthritis, stiffness, decreased level of activity, and deep vein thrombosis. The patient understood all of their options and the risks of surgery and would like to proceed. The informed consent was signed. Description of Procedure IMPLANTS: 1) 4.75 mm SwiveLock (Arthrex). 2) FiberTape and FiberLink DESCRIPTION OF THE PROCEDURE: The patient was taken to the operating room and following administration of her interscalene nerve block and general anesthetic, a multidisciplinary time-out was performed identifying my initials on the right shoulder as the correct and operative limb. The patient was then placed in beach chair position with all of their bony prominences well-padded. They were then prepped and draped in the usual orthopedic sterile fashion. All of the bony landmarks were marked as well as the planned incisions. The planned incisions were injected with a 50:50 mixture of 0.5% Marcaine plain and 1% Lidocaine with Epinephrine for a total of 8 cc. Then using a spinal needle which was placed intra-articularly into the glenohumeral joint and insufflated to 35 cc and there was noted appropriate back flow, an additional 15 cc were placed. The standard posterior portal was made with an 11-blade. Trocar was introduced into the glenohumeral joint in the standard fashion. Using a spinal needle, the anterior portal was placed lateral to the coracoid under direct visualization between the Long Head of the Biceps and Subscapularis. A 7mm cannula was then placed. The intra-articular portion of shoulder was addressed first with debriding any fraying from the biceps, subscapularis and supraspinatus tears. The long head of the biceps involvement was greater than 50% and an attempt was made to tag it with a FiberLink, prior to releasing it. The suture pulled out later during the case, the long head of the biceps remained within the groove. The area of the supraspinatus where there was a partial tear was marked with an 0 PDS suture that had been placed through a spinal needle in the standard fashion. The arthroscope had also been removed from the posterior portal and placed anteriorly for better posterior visualization. The arthroscope was then placed subacromially. There was bursitis noted as well as a small bony spur. There was also noted degenerative changes in the AC joint. A lateral portal was created under direct visualization with a spinal needle. Once the bursitis was removed the rotator cuff was evaluated and inferior to the 0 PDS, the probe was easily placed within the tear which was approximately 80% of the depth. The subacromial spur was addressed first and after all of the soft tissue had been removed and the CA ligament to use off of the undersurface of the acromion, using a 5 mm bur and a cutting block technique 5 mm of the spur was removed. Next our attention was toward the distal end of the clavicle and approximately 7 mm was removed arthroscopically using both the lateral and anterior portal to ensure complete and even resection. Next the frayed rotator cuff and was debrided with a 4.0 mm mechanical shaver back to stable margins. The footprint of the rotator cuff was prepared with mechanical shaver creating a bleeding surface to allow for healing of the supraspinatus. The FiberTapes were passed through the most posterior and anterior aspect of the supraspinatus separately, and a Fiberlink was placed between and more medial to the passed FiberTapes, creating a rip stop affect. The anchor was placed in the standard fashion laterally using the 3 sutures (FiberTape x 2 and the Fiberlink) which were incorporated into the 4.75 mm Swivelock in the standard fashion, through the lateral portal, with the arm abducted. The humeral head was no longer visible. All of the instruments were removed. The portal sites were closed with 3-0 Prolene in a standard fashion. Xeroform was placed overtop followed by 4 x 4's, ABDs, and multiple Tegaderms. The patient was placed in an abduction sling. The sponge and needle counts were correct. POSTOPERATIVE INSTRUCTIONS: The patient will follow-up with physical therapy later this week. The patient will wear sling for weeks. The patient will follow- up in the office in 10 to 15 days. I attest to the content of the Intraoperative Record and any orders documented therein. Any exceptions are noted below.
[2019-01-24] MEDS ORDERED: ONDANSETRON INJ 2 MG/ML 2 ML VIAL IV PRN ×2 (10:13→11:02)
[2019-01-24] MEDS ORDERED: METOCLOPRAMIDE HCL INJ 5 MG/ML 2 ML VIAL IV PRN (10:13)
--- NOTE | 2019-01-24 10:24 | Operative Report ---
Post Operative Report Pre & Post Diagnosis Operation Date: 01/24/19 07:00 Pre-Op Diagnosis: RIGHT SHOULDER ROTATOR CUFF TEAR, AC JOINT ARTHRITIS Post-Op Diagnosis: RIGHT SHOULDER ROTATOR CUFF TEAR, AC JOINT ARTHRITIS Procedure Operation Date: 01/24/19 07:00 Actual Procedures p Right Shoulder Arthroscopy, Rotator Cuff/Labral Repair, Distal Clavicle Excision, Bicep Tenotomy(Right) - Bob Torres MD Surgeon Bob Torres MD Polygraph Technician Martínez La MD Estimated Blood Loss 5 Findings Consistent with Post-Op Diagnosis Specimens None Complications none Disposition Accompanied Patient To Recovery: Yes Disposition: Recovery Room Indications 63/F with right shoulder cuff tear, biceps tendonitis, ac jt arthritis resistant to conservative measures Description of Procedure Beach Chair position, standard prep and drape, time out for patient safety, arthroscopic right shoulder cuff repair, lateral clavicle excision, sub acromial decompression and biceps tenotomy. Please see Dr Torres's procedure notes for sp ecific details. I was present throughout the case, assisted for wound closure and transferred the patient to PACU in stable condition. I attest to the content of the Intraoperative Record and any orders documented therein. Any exceptions are noted below.
[2019-01-24] MEDS ORDERED: PROMETHAZINE HCL 6.25 MG in SODIUM CHLORIDE 0.9% 50 ML IV PRN (11:02)
[2019-01-24] MEDS ORDERED: ATROPINE SULFATE 0.1 MG/ML 10ML SYR IV PRN (11:02)
[2019-01-24] MEDS ORDERED: ePHEDrine sulfate 50 MG/ML AMP IV PRN (11:02)
[2019-01-24] MEDS: fentaNYL citrate 100 MCG/2 ML VIAL IV PRN ×2 (11:09→11:25)
--- NOTE | 2019-01-24 11:47 | Anesthesiology Progress Note ---
Date of Service January 24, 2019 Anesthesia Post Procedure Vital Signs Vital Signs: Temp Pulse Pulse Resp BP BP Pulse Ox 01/24/19 11:35 37.2 C 80 16 159/94 H 92 01/24/19 11:25 78 15 153/92 H 93 01/24/19 11:15 75 18 145/84 H 93 01/24/19 11:05 75 18 162/85 H 96 01/24/19 10:55 77 21 140/90 91 01/24/19 10:45 75 16 153/119 H 98 01/24/19 10:35 76 21 146/83 H 100 01/24/19 10:25 74 15 137/84 100 01/24/19 10:17 36.4 C L 74 17 128/60 99 01/24/19 05:48 37.0 C 64 20 152/78 H 98 Pain Intensity Right Shoulder: Pain Intensity: 6 Right Axilla: Pain Intensity: 4 Transfer of Care Handoff Completed per policy Notes Mental Status: alert / awake / arousable Patient Amnestic to Procedure: Yes Nausea / Vomiting: adequately controlled Pain: adequately controlled Airway Patency, RR, SpO2: stable & adequate BP & HR: stable & adequate Hydration State: stable & adequate Anesthetic Complications: no major complications apparent Notes: Block working well in pacu. Only post op pain is in armpit, not covered by block.
[2019-01-24] MEDS: OXYCODONE/ACETAMINOPHEN 5mg/325mg TAB PO PRN (12:36)
[2019-01-24] MEDS ORDERED: CLOPIDOGREL BISULFATE 75 MG TAB PO ONE (13:48)
--- NOTE | 2019-01-24 14:48 | Orthopedic Progress Note ---
Date of Service January 24, 2019 Assessment & Plan (1) S/P rotator cuff repair: POD # 0, Patient is very anxious following surgery and notes that she has had to return to the hospital on multiple occasions following surgery. She is very, very concerned about her pain control as well as her anticoagulation. The patient will be admitted for observation. We will consult her tunnel drier operator who is in charge of her anticoagulation and will utilize Lovenox 80 mg subcutaneous twice a day per his recommendations,, as well as restarting Coumadin and Plavix today. We will consult her tunnel drier operator. We will continue with pain control overnight. Sling for 4 weeks. No lifting right shoulder. Ice to the right shoulder 20 minutes every hour as needed. We will reevaluate in the a.m. Present on Admission?: No Subjective Feeling very anxious,, has had multiple postoperative complications in the past. Physical Exam Physical Exam: Focusing on the right upper extremity, the sling is in place. The feeling in her digits is starting to return. She is able to flex and extend her digits. They have the typical bluish discoloration from the skin prep. Brisk Cap Refill less than 2 seconds. Dressing is clean, dry, and intact. Results & Data Vital Signs (Past 12 Hours) Vital Signs Temp Pulse Pulse Resp BP BP Pulse Ox 01/24/19 13:00 75 18 136/84 96 01/24/19 12:20 76 18 145/80 H 95 01/24/19 11:50 36.7 C 76 18 148/85 H 01/24/19 11:35 37.2 C 80 16 159/94 H 92 01/24/19 11:25 78 15 153/92 H 93 01/24/19 11:15 75 18 145/84 H 93 01/24/19 11:05 75 18 162/85 H 96 01/24/19 10:55 77 21 140/90 91 01/24/19 10:45 75 16 153/119 H 98 01/24/19 10:35 76 21 146/83 H 100 01/24/19 10:25 74 15 137/84 100 01/24/19 10:17 36.4 C L 74 17 128/60 99 01/24/19 05:48 37.0 C 64 20 152/78 H 98
[2019-01-24] MEDS: MoRPHine SULFATE 2 MG/ML CARP IV PRN (15:52)
[2019-01-24] MEDS ORDERED: CLOPIDOGREL BISULFATE 75 MG TAB PO SCH (16:00)
[2019-01-24] MEDS ORDERED: WARFARIN SOD 5 MG TAB PO SCH (16:00)
[2019-01-24] MEDS: SERTRALINE HCL 100 MG TABLET PO SCH (16:28)
[2019-01-24] MEDS: METOPROLOL SUCC 50MG EXT REL TAB PO SCH (16:28)
[2019-01-24] MEDS: ISOSORBIDE MONO EXTENDED REL 30 MG TABCR PO SCH (16:29)
[2019-01-24] MEDS: FENOFIBRATE NANOCRYSTALLIZED 48 MG TABLET PO SCH (16:29)
[2019-01-24] MEDS: ATORVASTATIN 40 MG TAB PO SCH (16:29)
[2019-01-24] MEDS: LEVOTHYROXINE SODIUM 75 MCG TABLET PO SCH (16:29)
--- NOTE | 2019-01-24 16:50 | Cardiology Consultation ---
Date of Consultation January 24, 2019 Assessment & Plan (1) CAD in [place] artery: No angina. Atypical right-sided chest pain for the last couple of hours, different than prior angina. Continue aspirin 81 mg daily. Continue high- intensity statin therapy and beta-maggi. ECG ordered. (2) S/P coronary artery stent placement: She is now greater than 6 months beyond elective drug-eluting PCI. Continue long-term antiplatelet therapy as noted above. She is also on anticoagulation given mechanical aortic valve. (3) History of aortic valve replacement: History of bicuspid aortic valve status post aortic valve replacement in 2009. Continue to follow with her primary machine operations supervisor, Dr. Adames. Continue anticoagulation with anti-platelet therapy. Coumadin is being restarted tonight. Bridging with Lovenox has also been arranged by Dr. Adames. (4) jail (current) use of anticoagulants: Plan as above. (5) Chest pain: Atypical and not likely cardiac in etiology. ECG ordered. Pain is mild right-sided and may be related to the fact that she underwent right rotator cuff procedure earlier today. If pain worsens or fails to improve, can consider further evaluation. Disposition: Her primary machine operations supervisor, Dr. Adames, will resume her cardiology care tomorrow. Thank you for allowing me to participate in the care of your patient. Please call for any other questions or concerns. Sincerely, Gato Rios M.D. History of Present Illness Reason for Consultation: CAD s/p PCI. Mechanical Aortic Valve Replacement. Requesting Physician: Dr. Torres Attending Physician: Bob Torres MD History of Present Illness Mrs. Barton is a very pleasant 63-year-old female with a history significant for bicuspid aortic valve status post mechanical aortic valve replacement in 2009. Ascending aortic aneurysm repair 2009, CAD with prior RI and circumflex PCI followed by lad PCI on 07/07/2018 following abnormal stress test, dyslipidemia, and hypothyroidism. [facility], prompting noninvasive ischemic evaluation. This was reportedly abnormal which led to cardiac catheterization on 07/07/2018. The RCA was without significant CAD. The circumflex stent was patent. Mid LAD had a focal moderate to severe stenosis which was treated with a single drug-eluting stent. She was treated with dual anti-platelet therapy in the form of aspirin and Brilinta. Following cardiac catheterization, she had extensive ecchymosis, hematoma, and was read mitted on 07/18/2018 with prolonged chest pain with negative troponin. She was found to have a right femoral pseudoaneurysm and hematoma, transferred to [facility] for pseudoaneurysm repair with Dr. Alfaro on 07/21/2018. more recently on 01/13/2019, she underwent right greater saphenous vein endovenous ablation. She has continued to have numbness in the right leg since the ablation on 01/13/2019, however her lower extremity swelling has improved significantly. Earlier today she underwent a right rotator cuff repair. She was kept for observation given her concern of postoperative complications/issues in the past. She has a right-sided chest pain currently and has had this for the last couple of hours. It is different than prior angina. She has not had this type of chest pain in the past. She wonders if it could be from her surgery in the right shoulder area. She denies shortness of breath, syncope, near-syncope, palpitations, or bleeding such as melena, hematochezia, or hematuria. Her right lower extremity edema is much improved as noted above. She has ambulated to the restroom without significant symptoms. She does not have any significant right shoulder pain currently. Her right arm is in a sling. Review of systems: As above. Review of systems otherwise negative/unremarkable. Family history: Mother and father with CAD. Social history: She quit smoking in June of 2018. Rare alcohol. She lives at home with her , and adopted son. She has 2 biologic children. Her son, Myron, is present at the bedside. Allergies Allergy/AdvReac Type Severity Reaction Status Date / Time latex Allergy Unknown Unknown Verified 01/24/19 06:41 Home Medications Home Medications Medication Instructions Recorded Confirmed Type ezetimibe 10 mg PO QAM 07/20/18 01/24/19 History fenofibrate micronized 67 mg PO QAM 07/20/18 01/24/19 History levothyroxine 75 mcg PO QAM 07/20/18 01/24/19 History nitroglycerin See Rx Instructions .ROUTE 07/20/18 01/24/19 History .COMPLEX PRN ropinirole 3 mg PO HS 07/20/18 01/24/19 History warfarin 3 mg PO 2XWK 07/20/18 01/24/19 History metoprolol succinate ER 25 mg 50 mg PO QAM tab 12/22/18 01/24/19 History tablet,extended release 24 hr atorvastatin 40 mg tablet 40 mg PO QAM #90 tab 01/04/19 01/24/19 Rx isosorbide mononitrate ER 30 mg 30 mg PO QAM #90 tab 01/04/19 01/24/19 Rx tablet,extended release 24 hr sertraline 100 mg PO DAILY 01/12/19 01/24/19 History warfarin 4 mg PO 5XWK 01/12/19 01/24/19 History enoxaparin 80 mg/0.8 mL 80 mg SQ Q12H #8 ml 01/16/19 01/24/19 Rx subcutaneous syringe Aspir-81 81 mg PO DAILY 01/24/19 01/24/19 History Patient History Medical History Hx of myocardial infarction x4 Hypothyroidism Osteoarthritis Rotator cuff tear, right Anemia chronic CAD (coronary artery disease) 2009= stents x 2 07/07/2018= PCI to LAD s/p abnormal stress test* History of aortic valve disease 2/ bicuspid AV s/p mechanical AVR (2009)- on warfarin 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: Grade view 3 with cricoid pressure, MAC#3, ETT 7 at [facility] History of recent steroid use right knee cortisone injection 01/04/19 with ortho* Hyperlipemia Hypertension Restless leg syndrome Surgical History History of arthroplasty of right knee History of carpal tunnel repair BOTH WITH LEFT X2 History of partial hysterectomy History of tonsillectomy and adenoidectomy Hx of aortic aneurysm repair + AVR (2009) Hx of cardiac catheterization 2009= stents x 2 07/07/2018= PCI to LAD Hx of cholecystectomy Hx of colonoscopy S/P excision of Gomes's neuroma Family History Brother Coronary heart disease Emphysema lung Mother Coronary heart disease Father Coronary heart disease Social History Preferred Language: Polish Communication Ability: Effective Hearing Ability: Normal Shuttle Preparation Supervisor Required: No Beliefs That Will Affect Care: None marital status: marital status details: Sara White [phone] Current Living Situation: Significant Other current occupational status: other 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 Alert and oriented. HEENT: Anicteric sclera. Neck: No JVD. Bilateral carotid bruit versus radiation of cardiac murmur. Normal carotid upstrokes bilaterally. Cardiac: PMI was nondisplaced. No ventricular heave. Regular. Normal S1. [place] S2. 2/6 systolic ejection murmur. No rubs, or gallops. Pulmonary: Clear to auscultation bilaterally without wheezes, rales, or rhonchi. Abdomen: Soft, nontender, nondistended, with hypoactive bowel sounds. No bruits noted. Extremities: 2+ radial pulses bilaterally. 2+ posterior tibialis pulses bilaterally. Trace right lower extremity edema. No cyanosis. Psychiatric: Affect appears appropriate. Chest: Nontender to palpation. Results & Data Vital Signs (Past 12 Hours) Vital Signs Temp Pulse Pulse Pulse Resp BP BP 01/24/19 15:17 36.7 C 74 16 135/84 01/24/19 14:50 36.8 C 76 15 123/79 01/24/19 13:00 75 18 136/84 01/24/19 12:20 76 18 145/80 H 01/24/19 11:50 36.7 C 76 18 148/85 H 01/24/19 11:35 37.2 C 80 16 159/94 H 01/24/19 11:25 78 15 153/92 H 01/24/19 11:15 75 18 145/84 H 01/24/19 11:05 75 18 162/85 H 01/24/19 10:55 77 21 140/90 01/24/19 10:45 75 16 153/119 H 01/24/19 10:35 76 21 146/83 H 01/24/19 10:25 74 15 137/84 01/24/19 10:17 36.4 C L 74 17 128/60 01/24/19 05:48 37.0 C 64 20 152/78 H Pulse Ox 01/24/19 15:17 95 01/24/19 14:50 96 01/24/19 13:00 96 01/24/19 12:20 95 01/24/19 11:50 01/24/19 11:35 92 01/24/19 11:25 93 01/24/19 11:15 93 01/24/19 11:05 96 01/24/19 10:55 91 01/24/19 10:45 98 01/24/19 10:35 100 01/24/19 10:25 100 01/24/19 10:17 99 01/24/19 05:48 98 Laboratory Results Laboratory Results - last 24 hr 01/24/19 05:44 PT 10.3 INR 1.0 APTT 27.6 PTT Ratio 1.0 Medications Administered Current Inpatient Medications Aspirin (Ecotrin Ectab) 81 mg PO DAILY [facility] Stop: 02/24/19 08:59 Atorvastatin Calcium (Lipitor) [facility] [place] Stop: 02/23/19 15:29 Last Admin: 01/24/19 16:29 Dose: 40 mg Documented by: Clopidogrel Bisulfate (Plavix) 75 mg PO DAILY [facility] Stop: 02/23/19 15:59 Last Admin: 01/24/19 16:28 Dose: 75 mg Documented by: Ezetimibe (Zetia) 10 [facility] [place] Stop: 02/24/19 08:59 Enoxaparin Sodium (Lovenox) 80 mg SQ Q12H [facility] Stop: 02/23/19 20:59 Fenofibrate (Fenofibrate) 48 [facility] [place] Stop: 02/23/19 15:29 Last Admin: 01/24/19 16:29 Dose: 48 mg Documented by: Isosorbide Mononitrate (Imdur Extended Rel) 30 [facility] [place] Stop: 02/23/19 15:29 Last Admin: 01/24/19 16:29 Dose: 30 mg Documented by: Levothyroxine Sodium (Synthroid) 75 mcg PO DAILYBB [facility] Stop: 02/23/19 15:29 Last Admin: 01/24/19 16:29 Dose: 75 mcg Documented by: Metoclopramide HCl (Reglan) 10 mg IV Q6H PRN PRN Reason: Nausea And Vomiting Stop: 02/23/19 10:12 Metoprolol Succinate (Toprol Xl) 50 mg PO QAM [facility] Stop: 02/23/19 15:29 Last Admin: 01/24/19 16:28 Dose: 50 mg Documented by: Miscellaneous (Pending Order) 1 ea N/A DAILY@1000 [facility] Stop: 02/24/19 09:59 Morphine Sulfate (Morphine Sulfate) 2 mg IV Q2H PRN PRN Reason: Pain (scale 1-5) Stop: 02/07/19 10:12 Last Admin: 01/24/19 15:52 Dose: 2 mg Documented by: Morphine Sulfate (Morphine Sulfate) 4 mg IV Q2H PRN PRN Reason: Pain (scale 6-10) Stop: 02/07/19 10:12 Nitroglycerin (Nitrostat) 0.4 mg SL UD PRN PRN Reason: Chest Pain Stop: 02/23/19 13:47 Ondansetron HCl (Zofran) 4 mg IV Q6H PRN PRN Reason: Nausea And Vomiting Stop: 02/23/19 10:12 Oxycodone/Acetaminophen (Percocet 5mg/325mg) 1 - 2 tab PO Q4H PRN PRN Reason: Pain Stop: 02/07/19 10:12 Last Admin: 01/24/19 12:36 Dose: 1 tab Documented by: Ropinirole HCl (Requip) 3 mg PO HS [facility] Stop: 02/23/19 20:59 Sertraline HCl (Zoloft) 100 mg PO DAILY [facility] Stop: 02/23/19 15:29 Last Admin: 01/24/19 16:28 Dose: 100 mg Documented by: Warfarin Sodium (Coumadin) 5 mg PO DAILY@1600 [facility] Stop: 02/23/19 15:59 Last Admin: 01/24/19 16:28 Dose: 5 mg Documented by: PG Care Time/CCT Total # of Minutes Spent Total Time Spent with Patient: Total time spent is greater than 50% in coordination of care (as documented) at patient's floor/unit and/or counseling patient:
[2019-01-24] MEDS: NITROGLYCERIN SL 0.4 MG/TAB TAB SL PRN ×3 (19:31→19:43)
[2019-01-24] MEDS: MoRPHine SULFATE 4 MG/ML 1 ML CARP\\VIAL IV PRN ×2 (19:51→23:43)
[2019-01-24] MEDS ORDERED: ROPINIROLE HCL 1 MG TABLET PO SCH (21:00)
[2019-01-24] MEDS ORDERED: ENOXAPARIN 80 MG/0.8 ML SYR SQ SCH (21:00)
--- NOTE | 2019-01-24 21:30 | Cardiology Progress Note ---
Date of Service January 24, 2019 Assessment & Plan (1) CAD in [place] artery: She had percutaneous intervention previously to the LAD and circumflex. Her initial evaluation and circumflex PCI was possibly in the stenting of an ACS. Her more recent LAD PCI was not in the setting of an acute coronary syndrome. (2) S/P coronary artery stent placement: Continuing antiplatelet therapy and anticoagulation (3) History of aortic valve replacement: Patient will receive her dose of Lovenox tonight. this is therapeutic Lovenox. She will also be placed on warfarin. Overall risk of thrombosis with mechanical aortic valve in the short-term is low. (4) FPC (current) use of anticoagulants: Plan as above. (5) Chest pain: She has had many admissions for symptoms of chest discomfort. Unfortunately, the character of her symptoms has been different over the years. She had several different symptoms throughout the course of this afternoon and evening. While her current symptoms are more concerning than her earlier right- sided and clearly atypical chest pains, I think the current symptoms are also unlikely to be related to an acute coronary syndrome. She has not had any change in her EKG. Her symptoms are worsened with palpation and deep inspiration. It did not seem to improve markedly with the administration of nitroglycerin but did improve to some degree with narcotics. Her blood pressures and pulses have been normal making the likelihood of aortic pathology low. I think we will concentrate on improving her symptoms. I think additional narcotics and possibly benzodiazepines will be necessary. She did take aspirin this morning and will be therapeutically anticoagulated this evening primarily for her mechanical valve. She does have an elevated right hemidiaphragm on chest x-ray. Whether this contributes to her symptoms is unclear. I suspect this is related to her nerve block performed earlier today. Subjective I was called to evaluate this woman with a history of cardiac disease and postoperative chest discomfort. She was evaluated a few hours ago by my colleague for symptoms of atypical chest discomfort postoperatively. It seems that her initial discomfort involved some right-sided pain which she described as "stabbing" in nature. She later began to have symptoms which involve the precordium and she describes as a pressure sensation. Her current symptoms seems to worsen with deep inspiration and is reproducible or at least worsened with palpation. It is not clear if her symptoms change with changes in position. She has been afraid to change position given her recent arm surgery and did not want to lie down or change sides at this point. It does not seem to radiate to her jaw, neck or left arm. In the past she also had some symptoms of stabbing or shooting pains into her back. This plagued her for some time but recently have improved after the addition of long-acting nitrates to her medical regimen. She was ambulatory around the joseph earlier and did have some dyspnea. At rest, she does not appear to have any dyspnea. She stated that her breathing was comfortable currently. She also had some concerns regarding right leg swelling. She thinks that her right leg is more swollen now than it was a few hours ago. She does not have any pain in the leg currently. She does have some discomfort in the leg with ambulation and this has been present to some degree since her recent venous ablation. Review of Systems Review of Systems: Per HPI. No current pain at the right shoulder operative site. Physical Exam Physical Exam: She is alert and oriented x3. Mood affect appear normal. She answered all questions appropriately. HEENT: Sclerae are anicteric. Pupils are equal and reactive to light and accommodation. Extraocular movements were intact. Neuro: Cranial nerves intact Lungs: Lungs are clear. Reduced breath sounds and excursion in the mid right lung. No rales. No expiratory wheezing. Normal respiratory effort. Cardiac: The rhythm was regular. There is a crescendo medium pitched murmur primarily in the left chest. Mechanical S2. Chest: Tender to palpation over the mid precordium. Abdomen: The abdomen was soft and nontender. Extremities: Patient has bilateral radial pulses that are equal in intensity. There is no evidence cyanosis or clubbing although the right hand was mildly swollen and blue due to anesthetic application. The right leg is slightly larger than the left. Results & Data Vital Signs (Past 12 Hours) Vital Signs Temp Pulse Pulse Pulse Resp BP Pulse Ox 01/24/19 20:19 79 124/69 01/24/19 19:40 86 14 114/65 93 01/24/19 19:35 115/67 93 01/24/19 19:27 94 H 120/73 94 01/24/19 15:17 36.7 C 74 16 135/84 95 01/24/19 14:50 36.8 C 76 15 123/79 96 01/24/19 13:00 75 18 136/84 96 01/24/19 12:20 76 18 145/80 H 95 01/24/19 11:50 36.7 C 76 18 148/85 H 01/24/19 11:35 37.2 C 80 16 159/94 H 92 01/24/19 11:25 78 15 153/92 H 93 01/24/19 11:15 75 18 145/84 H 93 01/24/19 11:05 75 18 162/85 H 96 01/24/19 10:55 77 21 140/90 91 01/24/19 10:45 75 16 153/119 H 98 01/24/19 10:35 76 21 146/83 H 100 01/24/19 10:25 74 15 137/84 100 01/24/19 10:17 36.4 C L 74 17 128/60 99 Diagnostic Findings Chest x-ray obtained this evening and evaluated by me reveals evidence of an elevated right hemidiaphragm without pneumothorax. There is no significant midline shift. ECG Additional Comments: I reviewed her EKG from earlier today and directly compared to the EKG obtained this evening. Outside of a change in heart rate there is no difference. Sinus rhythm with right bundle branch block. No acute ST or T wave changes.
[2019-01-24] MEDS: ENOXAPARIN 80 MG/0.8 ML SYR SQ SCH (21:34)
--- NOTE | 2019-01-24 21:35 | XRay Report ---
XR chest 1V portable HISTORY: 63 years-old Female chest pain acute atypical chest pain COMPARISON: Chest radiograph 09/03/2018 TECHNIQUE: Portable AP view of the chest FINDINGS: Cardiac silhouette is enlarged. Prior median sternotomy with cardiac valvular prosthesis. There is no pneumothorax. Blunting of the costophrenic angles. There is new moderate right hemidiaphragmatic philly vation with subsegmental right basilar opacities. Degenerative changes of the shoulders and spine. IMPRESSION: 1. New moderate right hemidiaphragmatic elevation of unknown etiology, new from 09/03/2018. Correlate with clinical history. 2. Cardiomegaly without overt pulmonary edema. 3. Subsegmental right basilar opacities suggest atelectasis. The above report was generated using voice recognition software. It may contain grammatical, syntax o r spelling errors. Electronically signed by: Silvio Mckinnon M.D. 01/24/2019 9:34 PM
[2019-01-25] MEDS: MoRPHine SULFATE 4 MG/ML 1 ML CARP\\VIAL IV PRN (04:11)
[2019-01-25] MEDS: LEVOTHYROXINE SODIUM 75 MCG TABLET PO SCH (05:50)
[2019-01-25 06:38] LABS: INR 1.1 (0.9-1.1); Prothrombin Time 10.8 Seconds (9.0-12.0)
[2019-01-25] MEDS: OXYCODONE/ACETAMINOPHEN 5mg/325mg TAB PO PRN ×2 (07:54→13:28)
--- NOTE | 2019-01-25 08:29 | Anesthesiology Progress Note ---
Date of Service January 25, 2019 Anesthesia Post Procedure Vital Signs Vital Signs: Temp Pulse Pulse Pulse Resp BP Pulse Ox 01/25/19 07:00 36.6 C 68 16 115/71 94 01/25/19 04:00 36.8 C 76 16 107/67 93 01/24/19 23:25 36.9 C 73 18 119/72 97 01/24/19 20:19 79 124/69 01/24/19 19:40 86 14 114/65 93 01/24/19 19:35 115/67 93 01/24/19 19:27 94 H 120/73 94 01/24/19 15:17 36.7 C 74 16 135/84 95 01/24/19 14:50 36.8 C 76 15 123/79 96 01/24/19 13:00 75 18 136/84 96 01/24/19 12:20 76 18 145/80 H 95 01/24/19 11:50 36.7 C 76 18 148/85 H 01/24/19 11:35 37.2 C 80 16 159/94 H 92 01/24/19 11:25 78 15 153/92 H 93 01/24/19 11:15 75 18 145/84 H 93 01/24/19 11:05 75 18 162/85 H 96 01/24/19 10:55 77 21 140/90 91 01/24/19 10:45 75 16 153/119 H 98 01/24/19 10:35 76 21 146/83 H 100 01/24/19 10:25 74 15 137/84 100 01/24/19 10:17 36.4 C L 74 17 128/60 99 Pain Intensity Right Shoulder: Pain Intensity: 6 Right Axilla: Pain Intensity: 5 Notes Mental Status: alert / awake / arousable and participated in evaluation Patient Amnestic to Procedure: Yes Nausea / Vomiting: adequately controlled Pain: adequately controlled Airway Patency, RR, SpO2: stable & adequate BP & HR: stable & adequate Hydration State: stable & adequate Anesthetic Complications: no major complications apparent and Pt Satisfied with anesthetic care
[2019-01-25] MEDS: METOPROLOL SUCC 50MG EXT REL TAB PO SCH (08:47)
[2019-01-25] MEDS: ISOSORBIDE MONO EXTENDED REL 30 MG TABCR PO SCH (08:47)
[2019-01-25] MEDS: SERTRALINE HCL 100 MG TABLET PO SCH (08:47)
[2019-01-25] MEDS: ENOXAPARIN 80 MG/0.8 ML SYR SQ SCH (08:48)
[2019-01-25] MEDS: ATORVASTATIN 40 MG TAB PO SCH (08:48)
[2019-01-25] MEDS: FENOFIBRATE NANOCRYSTALLIZED 48 MG TABLET PO SCH (08:48)
[2019-01-25 08:53] LABS: Hematocrit (blood only) 32.6 % (37-47); Hemoglobin 10.4 g/dL (12.0-16.0); Mean Corpuscular Hemoglobin 25.5 pg (25-34); Mean Corpuscular Hgb Conc 31.9 g/dL (32-36); Mean Corpuscular Volume 79.9 fL (80-100); Mean Platelet Volume 10.5 fL (7.4-10.4); Platelet Count 150 K/uL (130-400); RDW Coefficient of Variation 14.9 % (11.5-14.5); RDW Standard Deviation 43.7 fL (36.4-46.3); Red Blood Count 4.08 M/uL (4.2-5.4); White Blood Count 11.69 K/uL (4.8-10.8)
[2019-01-25 08:56] LABS: BUN Creatinine Ratio 14.5 (10-20); Calcium 8.3 mg/dl (8.5-10.1); Creatinine Clr Calc Pharmacy 47.3 ml/min; Est GFR (African American) 62.8; Est GFR (Non-African American) 54.1; Potassium 4.1 mmol/L (3.5-5.1)
[2019-01-25] MEDS ORDERED: EZETIMIBE 10 MG TABLET PO SCH (09:00)
[2019-01-25] MEDS ORDERED: ASPIRIN 81 MG ECTAB PO SCH (09:00)
--- NOTE | 2019-01-25 09:05 | Orthopedic Progress Note ---
Date of Service January 25, 2019 Assessment & Plan (1) S/P rotator cuff repair: POD # 1, Patient is feeling much better this am. CP resolved. Vitals stable. The patient had been admitted for observation, CP overnight. Seen by Cardiology, appreciate input. Will be seen by cardiology later today and Hospitalist service. CP and CXR findings likely secondarily to interscalene block affecting the Vagus Nerve/Diaphragm. Will defer to Cardiology regarding her anticoagulation and will utilize Lovenox 80 mg subcutaneous twice a day per his recommendations, restarted Coumadin and Plavix 01/24/19. INR 1.1 We will continue with pain control. Sling for 4 weeks, may remove/loosen the neck strap when sleeping or sitting. No lifting right shoulder. Ice to the right shoulder 20 minutes every hour as needed. Ok to discharge from ortho standpoint. Will await medical evaluation from Hospitalist and Cardiology and will d/c once deemed medically stable. Appreciate medicine and Cardiology input. Subjective Feeling better Review of Systems Review of Systems: All systems reviewed & are unremarkable except as noted in HPI & below Respiratory: no dyspnea Cardiovascular: no chest pain Additional Comments: CP from last evening resolved. Physical Exam Physical Exam: RUE: Dressing Clean, dry, intact. Neurovascularly intact. Sling in place. Results & Data Vital Signs (Past 12 Hours) Vital Signs Temp Pulse Resp BP Pulse Ox 01/25/19 07:00 36.6 C 68 16 115/71 94 01/25/19 04:00 36.8 C 76 16 107/67 93 01/24/19 23:25 36.9 C 73 18 119/72 97 Laboratory Results 01/25/19 01/25/19 01/25/19 Range/Units 06:03 06:03 05:58 WBC 11.69 H (4.8-10.8) K/uL RBC 4.08 L (4.2-5.4) M/uL Hgb 10.4 L (12.0-16.0) g/dL Hct 32.6 L (37-47) % MCV 79.9 L (80-100) fL MCH 25.5 (25-34) pg MCHC 31.9 L (32-36) g/dL RDW Std Deviation 43.7 (36.4-46.3) fL RDW Coeff of Pretty 14.9 H (11.5-14.5) % Plt Count 150 (130-400) K/uL MPV 10.5 H (7.4-10.4) fL PT 10.8 (9.0-12.0) Seconds INR 1.1 (0.9-1.1) Sodium 141 (136-145) mmol/L Potassium 4.1 (3.5-5.1) mmol/L Chloride 109 H (98-107) mmol/L Carbon Dioxide 28 (21-32) mmol/L Anion Gap 4.0 (3-11) BUN 16 (7-18) mg/dl Creatinine 1.10 (0.6-1.2) mg/dl Est Cr Clr Drug Dosing 47.3 ml/min Est GFR ( Amer) 62.8 Est GFR (Non-Af Amer) 54.1 BUN/Creatinine Ratio 14.5 (10-20) Glucose 119 H (70-99) mg/dl Calcium 8.3 L (8.5-10.1) mg/dl Diagnostic Findings XR chest 1V portable HISTORY: 63 years-old Female chest pain acute atypical chest pain COMPARISON: Chest radiograph 09/03/2018 TECHNIQUE: Portable AP view of the chest FINDINGS: Cardiac silhouette is enlarged. Prior median sternotomy with cardiac valvular prosthesis. There is no pneumothorax. Blunting of the costophrenic angles. There is new moderate right hemidiaphragmatic elevation with subsegmental right basilar opacities. Degenerative changes of the shoulders and spine. IMPRESSION: 1. New moderate right hemidiaphragmatic elevation of unknown etiology, new from 09/03/2018. Correlate with clinical history. 2. Cardiomegaly without overt pulmonary edema. 3. Subsegmental right basilar opacities suggest atelectasis.
--- NOTE | 2019-01-25 09:28 | Consultation ---
Date of Consultation January 25, 2019 Assessment & Plan (1) S/P rotator cuff repair: Post op 01/24 pain control per primary Hgb stable. (2) Chest pain: No chest pain since yesterday Patient did have some reproducible tenderness over right chest. Discussed with cardiology and patient bedside - unlikely that this represents a cardiac issue, no further workup (3) CAD in [place] artery: Continue ASA, statin, metoprolol, isosorbide (4) Hypothyroidism (acquired): continue levothyroxine (5) Restless leg syndrome: Continue ropinarole (6) Hyperlipidemia: continue statin, ezetimibe, fenofibrate (7) Shortness of breath: Secondary to atelectasis On chest xray yesterday: 1. New moderate right hemidiaphragmatic elevation of unknown etiology, new from 09/03/2018. Correlate with clinical history. 2. Cardiomegaly without overt pulmonary edema. 3. Subsegmental right basilar opacities suggest atelectasis. Hemidiaphragm elevation possibly from nerve block yesterday Dyspnea likely d/t atelectasis - continue IS and ambulation Afebrile, no leukocytosis. Mild cough, non productive. (8) History of aortic valve replacement: mechanical Lovenox bridging and warfarin per surgery and cardiology - Dr. Adames recommending Lovenox to bridge with repeat INR on Wednesday which patient does at home. (9) Depression: continue sertraline (10) Hypertension: continue metoprolol (11) Anemia: microcytic anemia on labwork - could consider initiating 325 ferrous sulfate daily. Thank you for involving us in the care of this patient. Per cardiology, patient is ok for discharge from their perspective. Medicine will sign off at this time. Supervising Physician Co-Signing Physician Notes I supervised Guadalupe Gutierrez NP on this patient's care. I did not examine the elvis [place] today as she was discharged by the primary team prior to me being able to see her. I discussed the plan of care with her with the plan being as written in her note except for any following changes/exceptions: None. Chest pain has been evaluated by two cardiologists and will be evaluated by a third educational coordinator (her primary educational coordinator, Dr. Adames) prior to discharge. At this point, agreement is that her chest pain is non-cardiac in nature. History of Present Illness Ms. Barton is post op right rotator cuff surgery. Yesterday she was having some chest pain on the right side. She has not had any chest pain since yesterday. She does get a bit dyspneic upon ambulation at times but was able to walk about 6 laps yesterday around the floor. She also had some discomfort and swelling in her right calf which she says is chronic following a series of pseudoaneurysms and repairs following a cardiac cath. Swelling and discomfort has improved today over yesterday, not painful. She generally wears CATHERINE hose on that leg to prevent swelling. 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, no alcohol, former smoker 25 pack year history Family: mother and father with heart disease and in their late 60s, brother with aortic aneurysm Attending Physician: Bob Torres MD Allergies Allergy/AdvReac Type Severity Reaction Status Date / Time latex Allergy Unknown Unknown Verified 01/24/19 06:41 Home Medications Home Medications Medication Instructions Recorded Confirmed Type ezetimibe 10 mg PO QAM 07/20/18 01/24/19 History fenofibrate micronized 67 mg PO QAM 07/20/18 01/24/19 History levothyroxine 75 mcg PO QAM 07/20/18 01/24/19 History nitroglycerin See Rx Instructions .ROUTE 07/20/18 01/24/19 History .COMPLEX PRN ropinirole 3 mg PO HS 07/20/18 01/24/19 History warfarin 3 mg PO 2XWK 07/20/18 01/24/19 History metoprolol succinate ER 25 mg 50 mg PO QAM tab 12/22/18 01/24/19 History tablet,extended release 24 hr atorvastatin 40 mg tablet 40 mg PO QAM #90 tab 01/04/19 01/24/19 Rx isosorbide mononitrate ER 30 mg 30 mg PO QAM #90 tab 01/04/19 01/24/19 Rx tablet,extended release 24 hr sertraline 100 mg PO DAILY 01/12/19 01/24/19 History warfarin 4 mg PO 5XWK 01/12/19 01/24/19 History enoxaparin [Lovenox] 80 mg SQ Q12H #5 syr 01/25/19 Rx Patient History Medical History Hx of myocardial infarction x4 Hypothyroidism Osteoarthritis Rotator cuff tear, right Anemia chronic CAD (coronary artery disease) 2009= stents x 2 07/07/2018= PCI to LAD s/p abnormal stress test* History of aortic valve disease / bicuspid AV s/p mechanical AVR (2009)- on warfarin 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: Grade view 3 with cricoid pressure, MAC#3, ETT 7 at [facility] History of recent steroid use right knee cortisone injection 01/04/19 with ortho* Hyperlipemia Hypertension Restless leg syndrome Surgical History History of arthroplasty of right knee History of carpal tunnel repair BOTH WITH LEFT X2 History of partial hysterectomy History of tonsillectomy and adenoidectomy Hx of aortic aneurysm repair + AVR (2009) Hx of cardiac catheterization 2009= stents x 2 07/07/2018= PCI to LAD Hx of cholecystectomy Hx of colonoscopy S/P excision of Gomes's neuroma Family History Brother Coronary heart disease Emphysema lung Mother Coronary heart disease Father Coronary heart disease Social History Preferred Language: [place] Communication Ability: Effective Hearing Ability: Normal 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 Required: No Beliefs That Will Affect Care: None marital status: marital status details: Sara White [phone] Current Living Situation: Significant Other current occupational status: other 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 - [employer] Feels Safe at Home: Yes Smoking Status: Never smoker Tobacco Type: cigarettes ; Second Hand Exposure: No ; Hx Alcohol Use: Yes Alcohol type: hard liquor Alcohol Intake Frequency Comment: Very infrequent Hx Substance Use: No Review of Systems Review of Systems: All systems reviewed & are unremarkable except as noted in HPI & below Physical Exam Physical Exam: General: no distress Eyes: normal inspection, PERLL Respiratory: chest non tender, clear to auscultation, normal breath sounds, no respiratory distress, no accessory muscle use Cardiac: regular rate and rhythm, no rub or gallop, no murmur, right leg with trace edema, no jvd GI/: active bowel sounds, no abd pain or tenderness, soft, non distended Extremities: normal range of motion, normal strength, non tender, chest tender to palpation on the right side Neuro:oriented x 3, moves all extremities Psych: alert, normal mood and affect Skin: normal color, dry Results & Data Vital Signs (Past 12 Hours) Vital Signs Temp Pulse Resp BP Pulse Ox 01/25/19 07:00 36.6 C 68 16 115/71 94 01/25/19 04:00 36.8 C 76 16 107/67 93 01/24/19 23:25 36.9 C 73 18 119/72 97 PG Care Time/CCT Total # of Minutes Spent Total Time Spent with Patient: Total time spent is greater than 50% in coordination of care (as documented) at patient's floor/unit and/or counseling patient: (1) Depression Active/Remission status: remission status unspecified Depression Type: major depressive disorder Major depression recurrence: unspecified whether recurrent Qualified Code(s): F32.9 - Major depressive disorder, single episode, unspecified (2) Hyperlipidemia Hyperlipidemia type: unspecified Qualified Code(s): E78.5 - Hyperlipidemia, unspecified
--- NOTE | 2019-01-25 09:57 | Cardiology Progress Note ---
Date of Service January 25, 2019 Assessment & Plan (1) Chest pain: 2. History of CAD --post TN/stenting to circumflex, PCI to mid LAD in the setting of abnormal stress test 06/2018 2. History of mechanical aortic valve replacement 3. Right lower extremity pseudoaneurysm post PCI at [facility] 06/2018-status post open surgical repair Dr. Alfaro 06/2018 4. Chronic venous insufficiency-- post right GSV RFA 5. Ascending aortic aneurysm repair 6. POD#1 rotator cuff repair No recurrent chest pain. Low suspicion that pain overnight secondary to ACS or cardiac in nature. From a cardiac standpoint OK with discharge today. -- Home on Lovenox bridge 80mg BID -- Repeat INR on Wednesday -- Resume clopidogrel 75 mg daily -- can discontinue aspirin -- continue home statin Cardiology follow-up as scheduled. Subjective Episode of chest discomfort yesterday evening. ECG unchanged. CXR with elevated diaphragm/atelectasis but otherwise unremarkable. No additional chest pain overnight. Shoulder pain reasonably controlled this morning. No other new complaints. Review of Systems Review of Systems: All systems reviewed & are unremarkable except as noted in HPI & below Physical Exam Constitutional: WD/WN, vitals as above Eyes: + anicteric sclerae Respiratory: normal respiratory effort Auscultation: lungs clear to auscultation bilaterally Cardiovascular: Rate/Rhythm: regular rate Heart Sounds: + abnormal opening sounds (crisp aortic bioprosthetic closure) Gastrointestinal (Abdomen): Percussion/Palpation: abdomen soft; abdomen nontender Musculoskeletal: LT arm in sling Skin: no rashes, warm and dry Neurologic: awake Psychiatric: A+Ox3, euthymic affect Results & Data Vital Signs (Past 12 Hours) Vital Signs Temp Pulse Resp BP Pulse Ox 01/25/19 07:00 97.9 F 68 16 115/71 94 01/25/19 04:00 98.2 F 76 16 107/67 93 01/24/19 23:25 98.4 F 73 18 119/72 97 PG Care Time/CCT Total # of Minutes Spent Total Time Spent with Patient: Total time spent is greater than 50% in coordination of care (as documented) at patient's floor/unit and/or counseling patient:
[2019-01-25] MEDS: MoRPHine SULFATE 2 MG/ML CARP IV PRN (10:51)
--- NOTE | 2019-01-27 02:32 | Discharge Summary ---
PRINCIPAL DIAGNOSES: Status post right shoulder arthroscopy, rotator cuff repair, distal clavicle excision, biceps tenotomy, subacromial decompression, 01/24/[address] Torres. HOSPITAL COURSE: A 63-year-old female was admitted to the hospital for 23-hour observation after undergoing a right shoulder arthroscopy, rotator cuff repair, distal clavicle excision, biceps tenotomy and subacromial decompression by Dr. Torres on 01/24/2019. The patient has history of extensive cardiac history, status post coronary artery stent placement, history of aortic valve replacement, long-term use of anticoagulants with her history as well as postop pain issues. We felt 23-hour observation was necessary due to her anxiety and pain. Cardiology was consulted for medical management as well. On the evening of postop day zero, the patient was experiencing chest pain. Cardiology again saw as well as medicine. A workup was performed from a cardiac standpoint. They did not feel this was related. EKG was unchanged. Chest x-ray showed elevated diaphragm, atelectasis, but otherwise unremarkable. The incident was one-time occurrence. She had no further additional chest pain overnight. While she was in the hospital, she continued with anticoagulation to include Lovenox, Coumadin, Plavix as well as a baby aspirin. She was also treated for postop pain to include p.o. oxycodone, IV morphine, ice. By postop day zero, her pain did improve significantly. She was cleared through medicine and cardiology to be discharged. Her blood pressure was stable 115/71, pulse 80, respirations 16, temperature 36.6, O2 sat 94 on room air. She was able to tolerate oral regular diet with minimal appetite. No issues with bowel or bladder. She was deemed stable to be discharged by orthopedics as well. The patient from an orthopedic standpoint is to perform no active motion of her right shoulder. She used to wear the UltraSling at all times, other than bathing and dressing and performing PT protocol provided by Dr. Torres. She was instructed to keep her incisions dressed, clean, dry and covered. She has postop narcotics which is oxycodone as well as [id number] Tylenol. She was instructed on restarting her home dose of Coumadin and Plavix to continue with Lovenox 80 mg twice a day until INR is 1.8. Her INR is to be redrawn on Wednesday and she is to contact her fire fighter for further instructions. She is to follow up with our office on 01/27/2019 at 10:30 with physical therapy and with Jodi Montalvo PA-C on 02/08 at 10:30 a.m. for wound check and suture removal. The patient verbalized understanding of the above. She was advised otherwise to call the office if she has any further problems, questions, or concerns. F[facility]
== END 2019-01-25 13:00 | disposition home or self-care (01) ==
LOC: 3E 05:09 → ASU 05:09
DX: M75.41 Impingement syndrome of right shoulder; I10 Essential (primary) hypertension; M19.011 Primary osteoarthritis, right shoulder; I25.2 Old myocardial infarction; E03.9 Hypothyroidism, unspecified; Z91.040 Latex allergy status; Z88.2 Allergy status to sulfonamides; E78.5 Hyperlipidemia, unspecified; I25.10 Atherosclerotic heart disease of native coronary artery without angina pectoris; Z79.899 Other long term (current) drug therapy; M75.101 Unspecified rotator cuff tear or rupture of right shoulder, not specified as traumatic; M75.21 Bicipital tendinitis, right shoulder

== ENCOUNTER 2020-02-07 05:30 | Observation (INO) ==
--- NOTE | 2020-01-12 14:35 | PAT Medication Instructions ---
Medication Instructions Date of Service January 12, 2020 Home Medications Medication Instructions Recorded atorvastatin 40 mg tablet 40 mg PO QAM #90 tab 07/18/19 isosorbide mononitrate 30 mg 30 mg PO QAM #90 tab 12/15/19 tablet,extended release 24 hr ezetimibe 10 mg PO QAM fenofibrate micronized 54 mg PO PM levothyroxine 75 mcg PO QAM nitroglycerin See Rx Instructions .ROUTE .COMPLEX PRN ropinirole 3 mg PO HS metoprolol succinate 25 mg tablet,extended release 24 hr 50 mg PO QAM sertraline 100 mg PO DAILY PRN warfarin 3 mg tablet 3 mg PO ONCE warfarin 6 mg tablet 6 mg PO [id number] atorvastatin 40 mg tablet 40 mg PO QAM isosorbide mononitrate 30 mg tablet,extended release 24 hr 30 mg PO QAM Plavix 75 mg PO QAM Continue as directed nitroglycerin See Rx Instructions .ROUTE .COMPLEX PRN (if needed) ASK your prescriber and surgeon warfarin 3 mg tablet 3 mg PO ONCE warfarin 6 mg tablet 6 mg PO 6XWK Plavix 75 mg PO QAM (in order for spinal anesthesia, Plavix needs to be stopped 7 days before surgery. Please check if okay with doctor that prescribes this to you) STOP taking 48 hours before surgery fenofibrate micronized 54 mg PO PM STOP taking 24 hours before surgery ropinirole 3 mg PO HS Take morning of surgery With a small sip of water, OTHERWISE NOTHING TO EAT OR DRINK AFTER MIDNIGHT: levothyroxine 75 mcg PO QAM metoprolol succinate 25 mg tablet,extended release 24 hr 50 mg PO QAM sertraline 100 mg PO DAILY PRN (if needed) atorvastatin 40 mg tablet 40 mg PO QAM isosorbide mononitrate 30 mg tablet,extended release 24 hr 30 mg PO QAM Take evening before surgery sertraline 100 mg PO DAILY PRN (if needed) Other Notes If you have any questions please call us at [phone] or [phone] or [phone] or [phone]
--- NOTE | 2020-01-15 10:11 | Anesthesiology Consultation ---
Date of Service January 15, 2020 Assessment & Plan (1) Encounter for pre-operative examination: COVID Status: As of 01/14 assessment, patient denies travel to endemic area, known exposure/sick contacts, or symptoms of COVID19. Patient instructed that they and their household members must follow strict social distancing guidelines, wear a mask in public and avoid travel for 14 days prior to surgery (see note below). Preoperative COVID19 testing to be completed prior to surgery per surgeon's arrangements. Patient made aware to self-isolate as much as possible between COVID testing and surgery. Plans to go to [place] to see sister for estate sale 01/26-01/27 (sister's just ). Will be lots of people present outside for the auction, but she will be staying inside with her sister for moral support states she will wear a mask and avoid any large groups of people. Returning 01/27, COVID testing to be done 02/01, surgery 02/06. Patient advised that if [place] gets [place] of [place], her surgery will have to be postponed. She will monitor for this and cancel trip if needed. Chart Review Chart Review: Acceptable Risk for Surgery (pending cardio clearance 01/18) and Patient seen in Pre Admission Testing Teaching & Discussion Instructed NPO after midnight before surgery, except medications with 15 cc of water. Medication instructions provided according to the PAT guidelines. History Surgery Operation Date: 02/07/20 08:50 Proposed Procedures p Right Total Knee Revision - Jean Marie Mendieta MD Height/Weight Height: 4 ft 11 in Weight: 74.6 kg Allergies Allergy/AdvReac Type Severity Reaction Status Date / Time latex Allergy Unknown Rash Verified 01/12/20 13:52 Medications Home Medications Medication Instructions Recorded Confirmed Last Taken ezetimibe 10 mg PO QAM 07/20/18 01/12/20 07/28/18 fenofibrate micronized 54 mg PO PM 07/20/18 01/12/20 01/23/19 09:00 levothyroxine 75 mcg PO QAM 07/20/18 01/12/20 01/23/19 09:00 nitroglycerin See Rx Instructions .ROUTE 07/20/18 01/12/20 Unknown .COMPLEX PRN ropinirole 3 mg PO HS 02/27/19 08/21/20 09/02/19 21:00 metoprolol succinate 25 mg 50 mg PO QAM tab 12/22/18 01/12/20 01/23/19 09:00 tablet,extended release 24 hr sertraline 100 mg PO DAILY PRN 01/12/19 01/12/20 01/23/19 09:00 warfarin 3 mg tablet 3 mg PO ONCE tab 07/11/19 01/12/20 Unknown warfarin 6 mg tablet 6 mg PO [id number] tab 07/11/19 01/12/20 Unknown atorvastatin 40 mg tablet 40 mg PO QAM #90 tab 07/18/19 01/12/20 Unknown isosorbide mononitrate 30 mg 30 mg PO QAM #90 tab 12/15/19 01/12/20 Unknown tablet,extended release 24 hr Plavix 75 mg PO QAM 01/12/20 01/12/20 Unknown Past Medical History Medical History Anemia chronic CAD (coronary artery disease) 2009= stents x 2 07/07/2018= PCI to LAD s/p abnormal stress test* Follows with Dr. 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: Grade view 3 with cricoid pressure, MAC#3, ETT 7 at [facility] History of recent steroid use right knee cortisone injection 01/04/19 with ortho* Hx of myocardial infarction x4 Hyperlipemia Hypertension Hypothyroidism Osteoarthritis Restless leg syndrome Sleep apnea Could not tolerate CPAP Exercise / Class Metabolic Activity II 4-5 Yardwork/Stairs/Walk up hill (Mild FAITH with 1 FOS, does many times per day, denies any chest pain) Past Family History Family History Brother Coronary heart disease Emphysema lung Mother Coronary heart disease Father Coronary heart disease Past Surgical History Surgical History History of arthroplasty of right knee History of bladder surgery TACKING History of carpal tunnel repair BOTH WITH LEFT X2 History of partial hysterectomy History of tonsillectomy and adenoidectomy Hx of aortic aneurysm repair + AVR (2009) Hx of cardiac catheterization 2009= stents x 2 07/07/2018= PCI to LAD - [facility] (DR. DAY) Hx of cholecystectomy Hx of colonoscopy 2014 S/P excision of Gomes's neuroma S/P rotator cuff repair Past Anesthesia History No Hx of Anesthesia Complications and No Family Hx of Anesthesia Complications History of PONV No Hx of PONV and No Hx of Motion Sickness Social History Smoking Status: Current every day smoker tobacco type: cigarettes Smoking cigarettes per day: 10 Do You Dip or Chew Tobacco: No Hx Alcohol Use: Yes (very rare) Alcohol type: hard liquor alcohol intake frequency: a few times a month Hx Substance Use: No substance use type: does not use Review of Systems Pt denies any recent chest pain, shortness of breath, palpitations, cough, fever, URI, or uncontrolled acid reflux. Physical Exam Vital Signs BP: 123/77 P: 71bpm SPO2: 98% RA T: 98.1 F R: 16 ENMT Mouth: + small oral opening; no dental restorations, no chipped teeth and no loose teeth Thyromental Distance: < 3.5 Finger Breadths (3) Mallampati Class: II Pt reports she is to have a cap put on prior to surgery--advised to check with surgeon's office before having dental work. Neck normal visual inspection; neck extension not limited Respiratory normal respiratory effort Auscultation: lungs clear to auscultation bilaterally Cardiovascular Rate/Rhythm: regular rate and regular rhythm Heart Sounds: no murmur Extremities: no edema Loud click of mechanical valve. Testing Laboratory Results 01/15/20 10:25 01/15/20 10:25 PT 22.7 Seconds (9.0-12.0) H 01/15/20 10:25 INR 2.2 (0.9-1.1) H 01/15/20 10:25 APTT 34.3 Seconds (21.0-31.0) H 01/15/20 10:25 Urine Color Yellow 01/15/20 10:25 Urine Appearance Clear (Clear) 01/15/20 10:25 Urine pH 6.5 (4.5-7.5) 01/15/20 10:25 Ur Specific Logan 1.017 (1.000-1.030) 01/15/20 10:25 Urine Protein Negative (Negative) 01/15/20 10:25 Urine Glucose (UA) Negative (Negative) 01/15/20 10:25 Urine Ketones Negative (Negative) 01/15/20 10:25 Urine Nitrite Negative (Negative) 01/15/20 10:25 Ur Leukocyte Esterase Negative (Negative) 01/15/20 10:25 Urine WBC (Auto) 1-5 /hpf (0-5) 01/15/20 10:25 Urine RBC (Auto) 5-10 /hpf (0-4) H 01/15/20 10:25 U Hyaline Cast (Auto) 0 /lpf (0-5) 01/15/20 10:25 U Epithel Cells (Auto) 5-10 /lpf (0-5) H 01/15/20 10:25 Urine Bacteria (Auto) Negative (Negative) 01/15/20 10:25 Blood Type AB Positive 01/15/20 10:25 Antibody Screen NEGATIVE 01/15/20 10:25 Electrocardiogram Date: 01/15/20 Findings: + NSR @ (69bpm) RBBB with repolarization abnormality. Chest X-Ray Date: 01/15/20 Findings: + NAD FINDINGS: PA and lateral chest radiographs are compared to study dated 01/24/2019 and correlated with chest CT dated 09/02/2018. The patient is status post midline sternotomy and cardiac valve surgery. The heart is mildly enlarged noting atherosclerotic calcification of the thoracic aorta. The pulmonary vasculature is noncongested. Chronic interstitial thickening is similar to previous. There is mild bibasilar scarring/atelectasis. No airspace consolidation or pleural eff usion is identified. There is no pneumothorax. The skeletal structures are osteopenic. The bony thorax appears intact. Degenerative change is noted in the thoracic spine. Cholecystectomy clips are seen in the right upper quadrant. Echocardiogram Date: 07/04/18 EF: 55% LV Function: normal Other Findings: + diastolic dysfunction (grade I) Valvular Disease: + MR (moderate) Mild aortic regurgitation. Normal functioning mechanical aortic valve.
[2020-01-15 10:48] LABS: Basophils # (auto) 0.03 K/uL (0-0.2); Basophils % (auto) 0.6 %; Eosinophils # (auto) 0.13 K/uL (0-0.5); Eosinophils % (auto) 2.8 %; Hematocrit (blood only) 40.7 % (37-47); Hemoglobin 13.1 g/dL (12.0-16.0); Immature Granulocytes # (auto) 0.01 K/uL (0.00-0.02); Immature Granulocytes % (auto) 0.2 %; Lymphocytes # (auto) 1.46 K/uL (1.2-3.4); Lymphocytes % (auto) 31.5 %; Mean Corpuscular Hemoglobin 26.6 pg (25-34); Mean Corpuscular Hgb Conc 32.2 g/dL (32-36); Mean Corpuscular Volume 82.6 fL (80-100); Mean Platelet Volume 10.6 fL (7.4-10.4); Monocytes % (auto) 6.5 %; Neutrophils # (auto) 2.71 K/uL (1.4-6.5); Neutrophils % (auto) 58.4 %; Platelet Count 166 K/uL (130-400); RDW Standard Deviation 42.5 fL (36.4-46.3); Red Blood Count 4.93 M/uL (4.2-5.4); White Blood Count 4.64 K/uL (4.8-10.8)
[2020-01-15 10:52] LABS: Appearance Urine Clear (Clear); Bacteria Urine Automated Negative (Negative); Bilirubin Urine Negative (Negative); Blood Urine Trace (Negative); Cast Urine Automated 0 /lpf (0-5); Color Urine Yellow; Glucose Urine UA Negative (Negative); Ketones Urine Negative (Negative); Leukocyte Esterase Urine Negative (Negative); Nitrite Urine Negative (Negative); Protein Urine Negative (Negative); Specific Gravity Urine 1.017 (1.000-1.030); Urobilinogen Urine Negative (Negative); pH Urine 6.5 (4.5-7.5)
[2020-01-15 10:57] LABS: INR 2.2 (0.9-1.1); Partial Thromboplastin Ratio 1.2; Partial Thromboplastin Time 34.3 Seconds (21.0-31.0); Prothrombin Time 22.7 Seconds (9.0-12.0)
[2020-01-15 10:59] LABS: BUN Creatinine Ratio 15.7 (10-20); Blood Urea Nitrogen 15 mg/dl (7-18); Calcium 8.6 mg/dl (8.5-10.1); Carbon Dioxide 25 mmol/L (21-32); Chloride 109 mmol/L (98-107); Creatinine Clr Calc Pharmacy 53.5 ml/min; Est GFR (African American) 73.5; Est GFR (Non-African American) 63.4; Glucose 83 mg/dl (70-99); Potassium 4.1 mmol/L (3.5-5.1); Sodium 139 mmol/L (136-145)
[2020-01-15 11:00] LABS: C Reactive Protein < 0.29 mg/dl (0-0.29)
--- NOTE | 2020-01-15 11:05 | XRay Report ---
TWO VIEW CHEST CLINICAL HISTORY: Preoperative examination. FINDINGS: PA and lateral chest radiographs are compared to study dated 01/24/2019 and correlated with c hest CT dated 09/02/2018. The patient is status post midline sternotomy and cardiac valve surgery. The heart is mildly enlarged noting atherosclerotic calcification of the thoracic aorta. The pulmonary v asculature is noncongested. Chronic interstitial thickening is similar to previous. There is mild bib asilar scarring/atelectasis. No airspace consolidation or pleural effusion is identified. There is no pneumothorax. The skeletal structures are osteopenic. The bony thorax appears intact. Degenerative c hange is noted in the thoracic spine. Cholecystectomy clips are seen in the right upper quadrant. IMPRESSION: No active disease in the chest. ACT 112: Negative or not required by law. Electronically signed by: Kevin Roberts M.D. 01/15/2020 11:04 AM
--- NOTE | 2020-01-15 15:11 | Electrocardiogram Report ---
Test Reason : Blood Pressure : / mmHG Vent. Rate : 069 BPM Atrial Rate : 069 BPM P-R Int : 166 ms QRS Dur : 136 ms QT Int : 464 ms P-R-T Axes : 054 -19 079 degrees QTc Int : 497 ms Normal sinus rhythm Right bundle branch block with repolarization abnormality Abnormal ECG When compared with ECG of 24-JAN-2019 20:53, Left anterior fascicular block is no longer Present Confirmed by Jayden Laura ([id number]) on 01/15/2020 3:10:52 PM Referred By: Jean Marie Mendieta Confirmed By:Jayden Laura
--- NOTE | 2020-01-30 15:17 | History & Physical Report ---
Date of Service January 30, 2020 Assessment & Plan (1) Loosening of prosthesis of right total knee replacement: Postoperative prescription for Percocet will be provided at discharge from the hospital. She is on Coumadin and Plavix chronically and will hold it for several days prior to surgery. She will speak with her patient care representative, Dr. Day, about this, resume it after surgery. Preoperative lab work, EKG, and chest x- ray have been ordered. Medical clearance has been requested from her PCP and patient care representative, Dr. Day. She previously had a knee aspiration done in November, which was negative for infection. The patient is aware of the COVID-19 risks associated with surgery. She is currently asymptomatic of any COVID-19 symptoms. She will obtain nasal swab testing prior to proceeding with surgery. PDMP was checked and there are no concerning findings. She already has access to crutches, a walker, and a cane. History of Present Illness Chief Complaint: Right knee pain Primary Care Provider: Simon Carmona DO This 64-year-old white female presents for evaluation of a longstanding history of right knee pain. She is scheduled to undergo a right knee total knee arthroplasty revision on 02/07/2020. She previously underwent total knee arthroplasty in late 2015. She states her knee has been painful since then. Pain is worse with weightbearing or ambulation. She denies any numbness or tingling. She has tried conservative care without improvement. She notes some restriction in motion. No other complaints at this time. Preoperative imaging has been obtained. She notes crepitation with motion. Pain is primarily anterior. She elects to proceed with surgical intervention in hopes of improving her discomfort. Allergies Allergy/AdvReac Type Severity Reaction Status Date / Time latex Allergy Unknown Rash Verified 01/19/20 08:34 Home Medications Home Medications Medication Instructions Recorded Confirmed Type ezetimibe 10 mg PO QAM 07/20/18 01/19/20 History fenofibrate micronized 54 mg PO PM 07/20/18 01/19/20 History levothyroxine 75 mcg PO QAM 07/20/18 01/19/20 History nitroglycerin See Rx Instructions .ROUTE 07/20/18 01/19/20 History .COMPLEX PRN ropinirole 3 mg PO HS 07/20/18 01/19/20 History metoprolol succinate 25 mg 50 mg PO QAM tab 12/22/18 01/19/20 History tablet,extended release 24 hr sertraline 100 mg PO DAILY PRN 01/12/19 01/19/20 History warfarin 3 mg tablet 3 mg PO ONCE tab 07/11/19 01/12/20 History warfarin 6 mg tablet 6 mg PO 6XWK tab 07/11/19 01/12/20 History atorvastatin 40 mg tablet 40 mg PO QAM #90 tab 07/18/19 01/19/20 Rx isosorbide mononitrate 30 mg 30 mg PO QAM #90 tab 12/15/19 01/19/20 Rx tablet,extended release 24 hr clopidogrel 75 mg tablet 75 mg PO DAILY 01/19/20 01/19/20 History Past Med/Surg History Medical History Anemia chronic CAD (coronary artery disease) 2009= stents x 2 07/07/2018= PCI to LAD s/p abnormal stress test* 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: Grade view 3 with cricoid pressure, MAC#3, ETT 7 at [facility] History of recent steroid use right knee cortisone injection 01/04/19 with ortho* Hx of myocardial infarction x4 Hyperlipemia Hypertension Hypothyroidism Osteoarthritis Restless leg syndrome Sleep apnea Could not tolerate CPAP Surgical History History of arthroplasty of right knee History of bladder surgery TACKING History of carpal tunnel repair BOTH WITH LEFT X2 History of partial hysterectomy History of tonsillectomy and adenoidectomy Hx of aortic aneurysm repair + AVR (2009) Hx of cardiac catheterization 2009= stents x 2 07/07/2018= PCI to LAD - [facility] (DR. DAY) Hx of cholecystectomy Hx of colonoscopy 2014 S/P excision of Gomes's neuroma S/P rotator cuff repair Family History Brother Coronary heart disease Emphysema lung Mother Coronary heart disease Father Coronary heart disease Social History Smoking Status: Current every day smoker Cigarettes Per Day: 10; Second Hand Exposure: No; Hx Alcohol Use: Yes (very rare) Alcohol type: hard liquor Alcohol Intake Frequency Comment: Very infrequent Hx Substance Use: No Preferred Language: Qatari Communication Ability: Effective Hearing Ability: Normal Animal Physiology Teacher Required: No Beliefs That Will Affect Care: None marital status: marital status details: Sara White [phone] Current Living Situation: Significant Other current occupational status: other 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 Physical Exam Physical Exam: Vitals: Height 151 cm, weight 75.1 kilograms, BMI 33.0, temperature 36.2, BP 136/82, pulse 69, O2 sat 99% on room air. General: Well- developed, well-nourished middle-aged white female in no acute distress. Sitting in a chair. Alert and oriented. Skin: Warm and dry with good turgor. No rashes or lesions. No ecchymosis or erythema. Scar present on her right knee. HEENT: Normocephalic, atraumatic. Eyes: PERRLA, EOMI. Nares and oropharynx exams deferred due to COVID precautions. Heart: RRR, 3/6 systolic ejection murmur noted. No gallops or rubs. Lungs clear to auscultation bilaterally; no crackles, rhonchi or wheezing; good air movement. Abdomen: Mildly obese; bowel sounds present x4; soft, nontender. No organomegaly. No masses. Musculoskeletal: Right knee evaluation reveals a mild intraarticular effusion. No redness or warmth. She has full terminal extension. Flexion to 98 degrees. Strength is 5/5 with fairly good quad tone. Stable collateral ligaments. She has focal discomfort with palpation over the anterior portion of the knee. This is present in the peripatellar area and is especially painful in the anterior medial joint line. No defect in the patellar tendon or quadriceps tendon. Ambulatory with a slight limp using a large brace on her right leg. Neurologic: Gross sensation is intact across both lower extremities by soft touch. Peripheral pulses are 2+. Results & Data Results & Data ([facility]) Diagnostic Findings Radiographic imaging previously obtained in October shows loosening of a noncemented total knee prosthesis. Bone scan previously obtained shows uptake in the tibia consistent with potential loosening.
[2020-02-07] MEDS ORDERED: LR 60ML/HR IV SCH (06:00)
[2020-02-07] MEDS ORDERED: VANCOMYCIN HCL 1,250 MG in SODIUM CHLORIDE 0.9% 250 ML IV SCH (06:00)
[2020-02-07] MEDS ORDERED: LR 500ML BOLUS, THEN 15ML/HR IV SCH (06:00)
[2020-02-07] MEDS ORDERED: ROPIVACAINE 0.5% HCL/PF 150 MG, BUPIVACAINE 0.5% MPF 30 ML, EPINEPHrine 0.15 MG, Ketoro... INFIL SCH (06:00)
[2020-02-07] MEDS ORDERED: TRANEXAMIC ACID 1,000 MG **IV Pre-op IV SCH (06:00)
[2020-02-07] MEDS ORDERED: TRANEXAMIC ACID 1,000 MG x 1 **For Topical Use TOP SCH (06:00)
[2020-02-07] MEDS ORDERED: ROPIVACAINE 0.5% 5 MG/ML 30 ML VIAL ONE (06:34)
[2020-02-07] MEDS ORDERED: BUPIVACAINE 0.5 % 5 MG/1 ML PF 10ML VIAL ONE (06:34)
--- NOTE | 2020-02-07 06:45 | History & Physical Bridge Note ---
Date of Service February 07, 2020 History & Physical Bridge Note I have examined the patient, reviewed the History & Physical and in the interval since the performance of the History & Physical I have noted the following changes of clinical significance: consent obtained/site verified/covid screen negative.no changes noted
[2020-02-07 07:03] LABS: INR 1.1 (0.9-1.1); Partial Thromboplastin Ratio 0.9; Partial Thromboplastin Time 25.7 Seconds (21.0-31.0); Prothrombin Time 11.8 Seconds (9.0-12.0)
[2020-02-07] MEDS ORDERED: MIDAZOLAM HCL 1 MG/ML 2ML VIAL ONE (08:07)
[2020-02-07] MEDS ORDERED: fentaNYL citrate 100 MCG/2 ML VIAL ONE (08:07)
[2020-02-07] MEDS: CEFAZOLIN 2000MG 2,000 MG/15 ML SYR IV SCH ×3 (08:35→17:15)
[2020-02-07] MEDS ORDERED: ORTHO JOINT ANESTHETIC ONE (08:37)
[2020-02-07] MEDS ORDERED: HYDROmorphone INJ 1 MG/ML SYRINGE IV PRN (08:54)
[2020-02-07] MEDS ORDERED: KETOROLAC 30 MG/ML VIAL IV PRN (08:54)
[2020-02-07] MEDS ORDERED: ATROPINE SULFATE 0.1 MG/ML 10ML SYR IV PRN (08:54)
[2020-02-07] MEDS ORDERED: ONDANSETRON INJ 2 MG/ML 2 ML VIAL IV PRN ×2 (08:54→12:36)
[2020-02-07] MEDS ORDERED: ePHEDrine sulfate 50 MG/ML AMP IV PRN (08:54)
[2020-02-07] MEDS ORDERED: PHENYLEPHRINE 100MCG/ML 5ML SYR ONE (11:07)
[2020-02-07] MEDS ORDERED: LIDOCAINE HCL 2% 2 ML VIAL/AMP(20MG/ML) INFIL ONE (11:07)
[2020-02-07] MEDS ORDERED: PROPOFOL IV EMULSION 10 MG/ML 20 ML VIAL IV ONE (11:07)
--- NOTE | 2020-02-07 11:19 | Post Operative Brief Note ---
Immediate Post Op Note v1 Date of Surgery February 07, 2020 Pre & Post Diagnosis Operation Date: 02/07/20 08:50 Pre-Op Diagnosis: Aseptic Loosening Right Total Knee Arthroplasty /patello femoral djd Post-Op Diagnosis: Aseptic Loosening Right Total Knee Arthroplasty /patellofemoral djd I identified the patient and participated in the time-out.: Yes Procedure Operation Date: 02/07/20 08:50 Actual Procedures p Right Total Knee Revision(Right) - Jean Marie Mendieta MD Surgeon Jean Marie Mendieta MD Tunnel Heading Inspector [email or web address] Estimated Blood Loss 100 Findings Consistent with Post-Op Diagnosis
[2020-02-07] MEDS ORDERED: ePHEDrine sulfate 50 MG/ML SYR ONE (11:20)
--- NOTE | 2020-02-07 11:39 | Operative Report ---
Post Operative Report Pre & Post Diagnosis Operation Date: 02/07/20 08:50 Pre-Op Diagnosis: Aseptic Loosening Right Total Knee Arthroplasty Post-Op Diagnosis: Aseptic Loosening Right Total Knee Arthroplasty I identified the patient and participated in the time-out.: Yes Procedure Operation Date: 02/07/20 08:50 Actual Procedures p Right Total Knee Revision(Right) - Jean Mraie Mendieta MD Surgeon LUIS ANTONIO Mendieta MD Supervisor Epoxy Fabrication [email or web address] Estimated Blood Loss 100 Findings Consistent with Post-Op Diagnosis Specimens see operative report Drains none Complications none Disposition Accompanied Patient To Recovery: Yes Disposition: Recovery Room Indications This 64-year-old white female presented to the office with complaints of persisting right knee pain after previous right total knee arthroplasty. She had tried conservative care measures without improvement. Patient elected to proceed with surgical intervention in hopes of improving her pain and function. Preoperative imaging was obtained. Description of Procedure Patient was administered a spinal anesthetic and then taken to the operating room where she was given sedation. She was prepped and draped in the usual sterile fashion. Please see Dr. Mendieta's operative report for specifics of the procedure. I was present for the entire case from initial patient positioning through final wound closure. Assistance was provided in tissue retraction, hemostasis, old hardware removal, trial implant placement, final implant placement, and final wound closure. Patient was taken to the recovery room in satisfactory condition. I attest to the content of the Intraoperative Record and any orders documented therein. Any exceptions are noted below.
--- NOTE | 2020-02-07 11:46 | Operative Report ---
Post Operative Report Pre & Post Diagnosis Operation Date: 02/07/20 08:50 Pre-Op Diagnosis: Aseptic Loosening Right Total Knee Arthroplasty Post-Op Diagnosis: Aseptic Loosening Right Total Knee Arthroplasty I identified the patient and participated in the time-out.: Yes Procedure Operation Date: 02/07/20 08:50 Actual Procedures p Right Total Knee Revision(Right) - Jean Marie Mendieta MD Surgeon Jean Marie Mendieta MD Certified Indoor Environmentalist [email or web address] Estimated Blood Loss 100 Findings Consistent with Post-Op Diagnosis Fluids None Specimens Bone cuts from femur and tibia Drains None Anesthesia Type Spinal Complications none Disposition Accompanied Patient To Recovery: Yes Disposition: Recovery Room Indications Painful right total knee with signs of osteolysis on x-rays Description of Procedure As per 's note, I assisted in prepping and draping,instruments handling,certain parts of the procedure, wound closure and accompanied patient to the recovery room I attest to the content of the Intraoperative Record and any orders documented therein. Any exceptions are noted below.
--- NOTE | 2020-02-07 11:53 | XRay Report ---
RIGHT KNEE 2 VIEWS History: Right total knee arthroplasty revision.. Postop. FINDINGS: The patient is status post revision of a constrained longstem right total knee arthroplasty . The hardware is intact. No fracture or dislocation. Skin angy are in place. IMPRESSION: Revision of a right total knee arthroplasty. No evidence for hardware complication. ACT 112: Negative or not required by law. Electronically signed by: Hernán Simpson M.D. 02/07/2020 11:52 AM
--- NOTE | 2020-02-07 12:09 | Operative Report (OR) ---
DATE OF OPERATION: 02/07/2020 SURGEON: Jean Marie Mendieta MD. NURSE REVIEWER: Alla. SECOND NURSE REVIEWER: Ascencion Connors PA-C. 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 OPERATION PERFORMED: Revision right total knee replacement including patellofemoral resurfacing. PERIOPERATIVE SITUATION: Medically cleared female with intractable multiple comorbidities who has intractable pain with physical exam, x-ray preoperative evaluation including aspiration and culture, alpha defensin and bone scan revealing hot tibia, hot femur and hot patella. Most of the patella and tibia were hot and that pain clinically correlated there. At this point in time, she did not wish to live with this. Told her that it would require major procedure including removal of the implants and reinsertion of a bigger implants as well as resurfacing of patella. She states she understands and wants to proceed. She is cleared medically. Please see consent. SUMMARY OF IMPLANTS: Femur size 2 TC3 right, 31 sleeve, 75 x 10 stem posterior lateral augment, 4 mm +2 bolt anterior position. A 5-degree valgus adoption. Tibia 2 mobile bearing tray, 29 sleeve, 75 x 10 stem, 38 patella, 3 x 10 TC3 insert. Two bags of Palacos G cement. ESTIMATED BLOOD LOSS: 100 mL PATHOLOGY: Pathology pending on bone resection and implant removal. DESCRIPTION OF PROCEDURE: The patient appropriately identified, site verified, consent verified. Antibiotics confirmed as being given. The right lower extremity was prepped and draped in usual routine fashion. Tourniquet inflated to 300 mmHg after exsanguination of limb with a rubber Esmarch bandage. The consent was verified. Antibiotics confirmed as being given. The site verified. The old incision was utilized and slightly extended proximally. Full thickness flaps were raised. Parapatellar arthrotomy performed. Synovectomy completed. There was only a small amount of fluid. There was particulate debris from the poly. The patella was completely worn. The patella was encased in scar. This required tedious release. Once this was done, the knee could be flexed. The femur had some loosening laterally, which was utilized and enlarged with power saw with the osteotomes. It was finally knocked loose and removed. There was no major defects on the distal femur. All the membrane was then removed. The tibia was not loose after marked burring and sawing, working around the posts of this noncemented implant. There was significant wear laterally with the defect. This was all removed. The tibia was then reamed to a 10 that was the widest diameter it would take and then the sleeve placed and then the cut made. A revision cut was excellent. The trial was then placed. The femur was done with the metaphyseal sleeve placed with the medial side being narrow and distal cuts were made with being essentially a 0 on both. Once the distal cutting block was removed, the multi-cut block was applied. The anterior, posterior, condylar and chamfer cuts made. It was clear that a posterior augment was needed laterally on the posterior condyle. Once this was all taken care of, everything cleaned up, the trial implant was seated, it fit well with a 10 mm spacer, the knee was stable in both extension, flexion, mid range flexion. The patella tracked well. The patella was resected leaving 14 mm and a 38 trial seated, it tracked well. All trial implants were left in and the knee was then injected with Orthomix. All trial implants were then removed and the knee was bathed in TXA as the implants were being put together. Once everything was together, the cement mixed, all of the TXA was irrigated out and the permanent implants cemented in position with care taken to rotate the metaphyseal sleeve appropriately. Tibia, femur and patella in that order; after 12 minutes, the tourniquet deflated. Minor bleeding points controlled with electrocautery. After 14 minutes, the knee was then flexed, the trial implant removed. There was no cement removal required. The knee was irrigated with Betadine Pulsavac and then permanent liner seated. The knee reduced and closed at 35-40 degrees of flexion with #2 Vicryl for the capsule layer, 2-0 Vicryl for subcutaneous layer and stainless steel clips for skin. A Joe Adames dressing was applied. There were no issues with the extensor mechanism proximally or distally. At the end everything looked well. The knee tracked well. There was full extension and flexion easily to 120. EBL was 100 mL. No major bone pathology pending, just some debris and then the implants. DVT prophylaxis per protocol. I attest to the content of the Intraoperative Record and any orders documented therein. Any exception s are noted below.
--- NOTE | 2020-02-07 12:13 | Progress Notes ---
DATE: 02/07/2020 SUBJECTIVE: Status post revision right total knee replacement. The patient is doing well. Denies chest pain, shortness of breath, fever, chills, nausea, vomiting or headache. OBJECTIVE: Vital signs are stable. She is afebrile. Spinal block is limiting vascular check, but is starting to move her legs. Pulses intact. Skin color, good. Cap refill excellent. Wound dressing clean, dry and intact. Postop x-rays look excellent. ASSESSMENT: Doing well status post revision right total knee replacement. Continue with care pathway. Discussed with her .
--- NOTE | 2020-02-07 12:19 | Anesthesiology Progress Note ---
Date of Service February 07, 2020 Anesthesia Post Procedure Vital Signs Vital Signs: Temp Pulse Pulse Resp BP BP Pulse Ox 02/07/20 12:10 36.6 C 64 12 113/77 96 02/07/20 11:55 65 14 131/70 96 02/07/20 11:45 66 16 125/79 100 02/07/20 11:38 36.7 C 69 12 123/75 100 02/07/20 07:07 63 18 147/79 H 99 02/07/20 06:47 36.9 C 67 20 146/92 H 98 Transfer of Care Handoff Completed per policy Notes Mental Status: alert / awake / arousable Patient Amnestic to Procedure: Yes Nausea / Vomiting: adequately controlled Pain: adequately controlled Airway Patency, RR, SpO2: stable & adequate BP & HR: stable & adequate Hydration State: stable & adequate Anesthetic Complications: no major complications apparent
[2020-02-07] MEDS ORDERED: bisacodyL 10 MG SUPP PR PRN (12:36)
[2020-02-07] MEDS ORDERED: SERTRALINE HCL 100 MG TABLET PO PRN (12:36)
[2020-02-07] MEDS ORDERED: NITROGLYCERIN SL 0.4 MG/TAB TAB SL PRN (12:36)
[2020-02-07] MEDS ORDERED: MAGNESIUM HYDROXIDE SUSP 30 ML UDC PO PRN (12:36)
[2020-02-07] MEDS ORDERED: ALUMINUM/MAGNESIUM SUSP 30 ML UDC PO PRN (12:36)
[2020-02-07] MEDS ORDERED: SODIUM CHLORIDE 0.9% 1000ML 1,000 ML IV SCH (12:36)
[2020-02-07] MEDS ORDERED: DiphenhydrAMINE HCL 50 MG/ML VIAL IV PRN (12:36)
[2020-02-07] MEDS ORDERED: METOCLOPRAMIDE HCL INJ 5 MG/ML 2 ML VIAL IV PRN (12:36)
[2020-02-07] MEDS ORDERED: NALOXONE HCL 0.4 MG/1 ML VIAL/CARP IV PRN (12:36)
--- NOTE | 2020-02-07 12:44 | Discharge Summary (DS) ---
DATE OF DISCHARGE: 02/08/2020. CHIEF COMPLAINT: Right knee pain. HISTORY OF PRESENT ILLNESS: The patient underwent elective revision of aseptic loosening and patellofemoral arthropathy of her right total knee replacement. At this point in time, her hospital course has been uneventful. Postop x-rays look excellent. PREADMISSION WORKUP: Included cultures, alpha defensin, CRP and sed rate. Bone scan as well. This is all consistent with aseptic loosening and disease of the patellofemoral joint. PAST MEDICAL HISTORY: Remarkable for anemia, coronary artery disease, DVT, aortic valve disease, pseudoaneurysm, steroid use myocardial infarction, hyperlipidemia, hypertension, hypothyroidism, osteoarthritis, restless leg syndrome, sleep apnea, not using CPAP. PAST SURGICAL HISTORY: Include arthroplasty of the right knee previously. The bladder surgery, carpal tunnel repair, partial hysterectomy, tonsillectomy, adenoidectomy, aortic aneurysm repair with aortic valve replacement, history of cardiac catheterization with stents, history of cholecystectomy, history of colonoscopies, status post Gomes's neuroma status post rotator cuff repair. FAMILY HISTORY: Reveals that her brother has coronary artery disease and emphysema. Mother and father had coronary artery disease. SOCIAL HISTORY: Reveals that she smokes 10 cigarettes per day. Secondhand exposure no. Social alcohol use. Lives with , Sara. Feels safe at home. REVIEW OF SYSTEMS: Reveals no chest pain, shortness of breath, fever, chills, nausea, vomiting or headache. Postop x-rays look excellent. ASSESSMENT: Doing well status post revision right total knee replacement. We will discharge to home after PT, OT tomorrow. Home services as per protocol. Resume her anticoagulation tomorrow.
[2020-02-07] MEDS: ACETAMINOPHEN 500 MG TAB PO SCH ×2 (13:48→21:36)
[2020-02-07] MEDS: KETOROLAC TROMETHAMINE 15 MG/ML VIAL IV SCH ×2 (13:49→19:14)
[2020-02-07] MEDS ORDERED: ORTHO WARFARIN NOMOGRAM SCH (14:00)
[2020-02-07] MEDS: OXYCODONE HCL IR 5 MG TAB (IMMEDIATE RELEASE) PO PRN ×2 (14:23→20:35)
[2020-02-07] MEDS: HYDROmorphone INJ 0.5 MG/0.5 ML SYR IV PRN ×2 (15:40→19:15)
[2020-02-07] MEDS ORDERED: WARFARIN SOD 5 MG TAB PO SCH (16:00)
[2020-02-07] MEDS: ASCORBIC ACID 500 MG TAB PO SCH (17:15)
[2020-02-07] MEDS: FERROUS GLUCONATE 324 MG TAB PO SCH (17:15)
[2020-02-07] MEDS ORDERED: ROPINIROLE HCL 1 MG TABLET PO SCH (21:00)
[2020-02-07] MEDS ORDERED: FENOFIBRATE NANOCRYSTALLIZED 48 MG TABLET PO SCH (21:00)
[2020-02-07] MEDS ORDERED: SENNA 8.6 MG TAB PO SCH (21:00)
[2020-02-07] MEDS: DOCUSATE SODIUM 100 MG CAP PO SCH (21:36)
[2020-02-07] MEDS: HYDROmorphone HCL 2 MG TAB PO PRN (21:38)
[2020-02-08] MEDS: CEFAZOLIN 2000MG 2,000 MG/15 ML SYR IV SCH (00:36)
[2020-02-08] MEDS: HYDROmorphone INJ 0.5 MG/0.5 ML SYR IV PRN (00:36)
[2020-02-08] MEDS: KETOROLAC TROMETHAMINE 15 MG/ML VIAL IV SCH ×2 (00:36→06:37)
[2020-02-08] MEDS: OXYCODONE HCL IR 5 MG TAB (IMMEDIATE RELEASE) PO PRN ×2 (04:07→09:30)
[2020-02-08] MEDS: ACETAMINOPHEN 500 MG TAB PO SCH (05:37)
[2020-02-08] MEDS ORDERED: LEVOTHYROXINE SODIUM 75 MCG TABLET PO SCH (06:30)
[2020-02-08 06:33] LABS: Hematocrit (blood only) 34.4 % (37-47); Hemoglobin 11.1 g/dL (12.0-16.0); Mean Corpuscular Hemoglobin 26.3 pg (25-34); Mean Corpuscular Hgb Conc 32.3 g/dL (32-36); Mean Corpuscular Volume 81.5 fL (80-100); Mean Platelet Volume 10.2 fL (7.4-10.4); Platelet Count 129 K/uL (130-400); RDW Coefficient of Variation 13.9 % (11.5-14.5); RDW Standard Deviation 41.9 fL (36.4-46.3); Red Blood Count 4.22 M/uL (4.2-5.4); White Blood Count 12.98 K/uL (4.8-10.8)
[2020-02-08 06:40] LABS: INR 1.1 (0.9-1.1); Prothrombin Time 11.6 Seconds (9.0-12.0)
--- NOTE | 2020-02-08 07:00 | Progress Notes ---
DATE: 02/07/2020 SUBJECTIVE: Postop day #1 status post right total knee revision and patellar resurfacing. She is doing well. She has no chest pain, shortness of breath, fever, chills, nausea, vomiting, or headache. OBJECTIVE: Vital signs are stable. She is afebrile. A.m. labs are pending. Wound dressing clean, dry and intact. Neurovascular check femoral sciatic nerve is normal. Can do a straight leg raise. ASSESSMENT AND PLAN: Doing well. Discharge to home today after PT, OT. Resume Coumadin per her baseline. Of note is that she stopped her other antiplatelet medication other than aspirin [address] in a bulky dressing with Webril and the CATHERINE stocking for 1 week.
[2020-02-08 07:04] LABS: BUN Creatinine Ratio 19.3 (10-20); Calcium 8.5 mg/dl (8.5-10.1); Creatinine Clr Calc Pharmacy 50.9 ml/min; Est GFR (African American) 69.1; Est GFR (Non-African American) 59.6; Potassium 4.3 mmol/L (3.5-5.1)
[2020-02-08] MEDS ORDERED: dexAMETHasone 10 MG in SYRINGE 0 ML IV SCH (08:00)
[2020-02-08] MEDS ORDERED: EZETIMIBE 10 MG TABLET PO SCH (09:00)
[2020-02-08] MEDS ORDERED: METOPROLOL SUCC 50MG EXT REL TAB PO SCH (09:00)
[2020-02-08] MEDS ORDERED: ATORVASTATIN 40 MG TAB PO SCH (09:00)
[2020-02-08] MEDS ORDERED: ISOSORBIDE MONO EXTENDED REL 30 MG TABCR PO SCH (09:00)
[2020-02-08] MEDS ORDERED: ASPIRIN 81 MG CHEW PO SCH (09:00)
[2020-02-08] MEDS ORDERED: MULTIVITAMIN TAB PO SCH (09:00)
--- NOTE | 2020-02-08 09:15 | Orthopedic Progress Note ---
Date of Service February 08, 2020 Assessment & Plan (1) Status post revision of total replacement of right knee: Patient's dressings were changed today by me. New Adames type dressing was placed with extra web roll. This is to remain in place for 1 week, and then the patient may remove it and use regular gauze pads. She should keep the dressings dry at all times. I did explain to her how to shower using press and seal to keep the dressings dry. PT/OT today. Resume her usual Coumadin dosing tomorrow. She will receive a dose prior to departure today. Dissipate discharge to home today with home health services. Start PT in 1 week. Maximum flexion at that point is 90 degrees. Follow-up in the office on February 21 for staple removal as scheduled Prescription for Dilaudid 2 mg tablets was sent to her pharmacy for pain control. She did not have much relief with oxycodone yesterday. Discontinue her knee immobilizer on Wednesday morning. Written discharge instructions were provided. Admission and Anticipated Discharge Date Admission Date: February 07, 2020 Subjective Patient is seen in her room this morning. She states her pain is well controlled at this point. She was having some difficulty with pain control yesterday but was switched to Dilaudid instead of oxycodone, and states this has worked much better. She denies any chest pain, shortness of breath, nausea, vomiting, or abdominal pain. She has been up using her walker. She feels ready to go home. She has already finished her breakfast. No other current complaints. Review of Systems Review of Systems: Unchanged from yesterday. Physical Exam Physical Exam: General: Well-developed, well-nourished, middle-aged white female, in no acute distress. Laying on her bed. Alert and oriented. Skin: Warm and dry with good turgor. No rashes or lesions. Patient's postsurgical dressings are in place and dry. Upon removal, she has scant dried blood on the inner dressings. No active bleeding at this time. Jeyson are intact. Wound edges are well approximated. Expected postoperative edema. No ecchymosis or erythema. Musculoskeletal: Right knee evaluation reveals full terminal extension. She is able to perform a straight leg raise. Intact motor function of the ankle and toes. Neurologic: Gross sensation is intact across the right leg by soft touch. Peripheral pulses are 2+. Results & Data ([facility]) Vital Signs (Past 12 Hours) Vital Signs Temp Pulse Resp BP Pulse Ox 02/08/20 03:55 36.7 C 76 14 132/73 94 02/08/20 00:30 36.9 C 77 14 116/71 93 Laboratory Results H&H obtained today are 11.1 and 34.4. INR is 1.1. PRP is unremarkable.
[2020-02-08] MEDS: ASCORBIC ACID 500 MG TAB PO SCH (09:28)
[2020-02-08] MEDS: DOCUSATE SODIUM 100 MG CAP PO SCH (09:28)
[2020-02-08] MEDS: FERROUS GLUCONATE 324 MG TAB PO SCH (09:29)
[2020-02-08] MEDS: HYDROmorphone HCL 2 MG TAB PO PRN (10:56)
== END 2020-02-08 11:11 | disposition home health service (06) ==
LOC: 3E 05:30 → ASU 05:30